=== PATIENT | female | born 1960 | race Caucasian/White ===

== ENCOUNTER 2019-08-18 11:59 | Emergency (ER) | payer MEDICARE, MEDICAID, SELFPAY ==
--- NOTE | ~2019-08-18 | XR_ITS ---
EXAMINATION: XR chest 2V DATE: 08/18/2019 13:51 INDICATION: Cough, shortness of breath, fever and wheezing TECHNIQUE: frontal and lateral views of the chest were obtained. COMPARISON: Chest radiograph dated 07/24/2016 FINDINGS: A few small calcified nodules in the right upper lung zone consistent with old granulomatous disease. No other airspace opacities, pleural effusion, pulmonary edema or pneumothorax. Small to moderate si zed retrocardiac hiatal hernia. Heart size is normal. Minimal anterior wedging of a couple mid thorac ic vertebral bodies with mild thoracic spondylosis. IMPRESSION: 1. No acute cardiopulmonary disease. 2. Small to moderate hiatal hernia. Reviewed, dictated and finalized at location A. ITY REP
[2019-08-18 12:39] VITALS: BP 141/81; PULSE 85; RESP 16; TEMP 37.1; O2SAT 98
--- NOTE | 2019-08-18 13:45 | ED.URI ---
HPI - URI/Sore Throat General Chief Complaint: Upper Respiratory Infection Stated Complaint: cough throat hurts hard to breathe Time Seen by Provider: 08/18/19 13:35 Source: patient, family and RN notes reviewed Mode of arrival: ambulatory Limitations: no limitations History of Present Illness HPI Narrative: 59 year old [facility] complaints of low grade fevers, post nasal drainage, nasal fullness and sinus pressure, headache,sore throat, with productive cough and some noted wheezing. Patient states that grandson had influenza recently refused nasal swab stating she thinks she has sinus infection. Patient has history o COPD and continues to use tobacco daily, has inhalers which she states that she has been using as ordered. Patient states shortness of breath and noted wheezing with her breathing.Lung sounds are decreased with some coarse scattered wheezing on auscultation, no tachypnea noted or accessory muscle use, SAO2 98% on room air. Patient states that she did not take a flu immunization this season and has been taking Tylenol for fever and discomfort. MD elicited complaint: fever, cough, sore throat, rhinorrhea, nasal congestion and sinus pain Pertinent past history: COPD and other (tobacco abuse) Onset (ago): day(s) (3) Consistency: progressively worsening Severity: severe Pain scale (0-10): 9 Description of mucous: clear Able to tolerate fluids by mouth: Yes Exacerbating factors: swallowing, exertion and deep breaths Relieving factors: nothing Associated symptoms: fever, headache, rhinorrhea, nasal congestion, sore throat, cough and shortness of breath Treatments prior to arrival: acetaminophen Related Data Home Medications Medication Instructions Recorded Confirmed albuterol sulfate [Ventolin HFA] 2 puff INHALATION QID PRN 08/18/19 08/18/19 dexlansoprazole [Dexilant] 60 mg PO DAILY 08/18/19 08/18/19 ipratropium-albuterol [Combivent 1 puff INHALATION QID 08/18/19 08/18/19 Respimat] sucralfate 1 g PO TID 08/18/19 08/18/19 Allergies Allergy/AdvReac Type Severity Reaction Status Date / Time azithromycin Allergy Unknown Rash Verified 08/18/19 13:02 Review of Systems Review of Systems: Narrative: CONSTITUTIONAL: Reports fever, chills, or sweats. EYES: Denies visual changes, redness, or discharge. ENT: reports rhinorrhea, congestion, sore throat, no otalgia. CARDIOVASCULAR: Denies chest pain, palpitations, or edema. RESPIRATORY:positive cough and dyspnea. GASTROINTESTINAL: Denies abdominal pain, nausea, vomiting, or diarrhea. GENITOURINARY: Denies dysuria or hematuria. SKIN: Denies rash or itching. MUSCULOSKELETAL: Denies back pain, joint pain, or myalgia. NEUROLOGIC:positive headache, numbness, or weakness. PSYCHIATRIC: Positive history anxiety or depression. All systems reviewed & are unremarkable except as noted in HPI and below [facility] Past Medical History Medical History (Updated 08/23/19 @ 15:22 by Valentina Elizabeth NP) Anorexia Anxiety and depression Bipolar 1 disorder COPD (chronic obstructive pulmonary disease) Diverticulitis Fibromyalgia Ganglion cyst of wrist GERD (gastroesophageal reflux disease) Hiatal hernia IBS (irritable bowel syndrome) Panic attacks Rheumatoid arthritis Schizophrenia Surgical History Surgical History (Updated 08/23/19 @ 15:19 by Valentina Elizabeth NP) History of removal of ovarian cyst Social History Social History (Updated 08/23/19 @ 15:16 by Valentina Elizabeth NP) Smoking packs per day: 0.5 Smoking cigarettes per day: 10.0 Years smoked: 40 Smoking pack-years: 20.00 Smoking status: Current every day smoker Tobacco type: cigarettes Living arrangements: with family Gender identity (if verbalized by the patient): Female Comments At time of signature, agree with nursing past medical, social history. There is no relevant family history pertinent to the presenting complaint Exam Narrative: Exam Narrative: GENERAL:ill-ap
== END 2019-08-18 15:10 | disposition home or self-care (01) ==
PROVIDERS: Emergency Provider Registered Nurse; PCP Internal Medicine
DX: J40 Bronchitis, not specified as acute or chronic (principal); J44.9 Chronic obstructive pulmonary disease, unspecified; K21.9 Gastro-esophageal reflux disease without esophagitis; M06.9 Rheumatoid arthritis, unspecified
CPT/HCPCS: 71046; 99213; G0463

== ENCOUNTER 2025-03-09 09:09 | Emergency (ER) | payer MEDICARE, MEDICAID, SELFPAY ==
--- OUTSIDE RECORDS SUMMARY | 2016-04-12 18:12 | XMS_ITS | Continuity of Care Document ---
Author Organization [facility] Address [address] [place] [address] Phone Care Team Providers Care Textile Colorist Dyer Name Role Phone Bianca ROUSSEAU, Sergio Unavailable Unavailable Advance Directives Directive Yes / No Effective Date File Name No Information Encounters Encounter Description Practice Location Reason(s) For Visit Diagnoses Date Provider Providers Copied on Encounter [facility], [address], [place], [place], [id number], [place] tel:[phone] [facility] No Information Bianca Hill. [address], [address], [place], [address], [place]. tel:[phone] Family History Family Member Type Diagnosis Age At Onset No Information Payers Payer name Insurance type Covered alliance party ID Authoriza tion(s) No Information Social History Type Description Quantity Date Captured Comments Sex Female Smoking Status No Information Chief Complaint And Reason For Visit No Information Reason For Referral Reason For Referral No Information History Of Present Illness Encounter Date Complaint History Of Prese nt Illness No Information Functional Status Date Functional Assessmen t No Information Instructions Date Instruction Additional Infor mation No Information Assessments Type Assessment Date No Information Patient Care Teams Name Effective Dates (start - stop) Status Members No Information
--- OUTSIDE RECORDS SUMMARY | 2021-04-26 08:30 | XMS_ITS | Continuity of Care Document ---
Author Organization [facility] Address [address] [place] [address] [address] [place] [address] Phone Care Team Providers Care Supervisor Paint Name Role Phone Librado Gant PT Unavailable Unavailable Procedures Procedure Date Therapeutic Activities PT Evaluation Low Complexity Therapeutic Exercise Advance Directives Directive Yes / No Effective Date File Name No Information Encounters Encounter Description Practice Location Reason(s) For Visit Diagnoses Date Provider Providers Copied on Encounter [facility], [address] [place] [address], [id number], tel:[phone] [place] No Information Stalin Pavon. . Referring Provider: Cy Rico, [address] [place] [address], [address]. tel:[phone] Family History Family Member Type Diagnosis Age At Onset No Information Payers Payer name Insurance type Covered constitution party ID Authoriza tiemmanuel(s) [employer] Medicare Replacement 16 [id number] Medicaid OON Write Off CI 00 Social History Type Description Quantity Date Captured Comments Alcohol Use Details Unknown Caffeine Use Details Unknown Tobacco Use Status No Information Smoking Status No Information Non-Smoking Tobacco Use Details : No Details Available : No Details Available Sex Female Vital Signs Date / Time: Height Weight BMI Pulse Rate Blood Pressure Temperature Respiratory Rate Body Surface Area Head Circumference Head Circ. Percentile Wt./Socrates. Percentile BMI percentile Pulse Ox Inhaled Ox 11:15 PM 64.00 in 65.770 kg (145.00 lbs) 24.8 9 kg/m eter (2) 1.72 meter(2) Chief Complaint And Reason For Visit No Information Reason For Referral Reason For Referral No Information Plan Of Treatment Date Type Action Status Goal Tobacco cessation counseling completed Goal Tobacco Cessation Counseling completed History Of Present Illness Encounter Date Complaint History Of Prese nt Illness No Information Functional Status Date Functional Assessmen t No Information Instructions Date Instruction Additional Infor mation No Information Assessments Type Assessment Date No Information Patient Care Teams Name Effective Dates (start - stop) Status Members No Information
[2025-03-09 09:20] VITALS: BP 143/79; PULSE 81; RESP 20; TEMP 36.5; O2SAT 98
--- OUTSIDE RECORDS SUMMARY | 2025-03-09 09:20 | XMS_ITS | Encounter Summary ---
Author Organization [facility] Address [address] [facility] [place] [address] Phone Care Team Providers Care Office Support Name Role Phone Cindy Morgan APRN, RESPIRATORY THERAPIST Unavailable Juan M Hickey MD Unavailable [phone] Iker Cedillo DO Unavailable [phone] Barbara Lamar MD Unavailable Unavail able Dawson Rudd MD Primary Care Provider [phone] Nolvia Lebron TEMPORARY OFFICE ASSISTANT, RESPIRATORY THERAPIST Primary Care Provid er Prema Marcelo TEMPORARY OFFICE ASSISTANT, RESPIRATORY THERAPIST Unavailable Zina Lugo TEMPORARY OFFICE ASSISTANT, RESPIRATORY THERAPIST Unavailable + [phone] Reason for Visit * Reason Comments Medication Refill Encounter Details Date Type Department Care Team (Late st Contact Info) Description 03/24/2021 Refill [facility] - [place] #2 [place] [id number] Dawson Rudd MD [address] [address] Medication Refill Social History Tobacco Use Types Packs/Day Years Used Date Smoking Tobacco: Every Day Cigarettes 0.5 45 Smokeless Tobacco: Never Comments:2-3 day Alcohol Use Standard Drinks/Week Comments No 0 (1 standard drink = 0.6 oz pure alcohol) use to be heavy drinker-quit drinking 21 years PHQ-2 Answer Date Recorded Total Score - Questions 1-9 0 12/02 Sexually Active Control Partners Comments Not Currently Comments No Sex and Gender Information Value Date Recorded Sex Assigned at Not on file Legal Sex Female 10:18 PM CDT Gender Identity Not on file Sexual Orientation Not on file Occupation Industry Job Start Date Job End Date disabled Not on file Not on file Not on file COVID-19 Exposure Response Date Recorded In the last month, have you been in contact with someone who was confirmed or suspected to have Coronavirus / COVID-19? No / Unsure 02/23/2021 6:16 AM CDT documented as of this encounter Miscellaneous Notes * Telephone Encounter - Dawson Rudd MD - 03/25/2021 11:10 AM CDT Prescription pending signature * Telephone Encounter - Chiqui Urrutia RN - 03/25/2021 10:57 AM CDT [place] PDMP 03/01/21 for 15 days Medication failed the protocol, provider to review and approve the medication order if appropriate. Requested Prescriptions Pending Prescriptions Disp Refills diazePAM (VALIUM) 5 MG Tablet [Pharmacy Med Name: diazePAM 5 MG Oral Tablet] 15 Tablet 0 Sig: TAKE 1 TABLET BY MOUTH EVERY 8 HOURS NEEDED FOR MUSCLE SPASM There is no refill protocol information for this order Refused Prescriptions Disp Refills buPROPion (WELLBUTRIN) 150 MG XL tablet [Pharmacy Med Name: buPROPion HCl ER (XL) 150 MG Oral Tablet Extended Release 24 Hour] 90 Tablet 0 Sig: TAKE 1 TABLET BY MOUTH ONCE DAILY IN THE MORNING Bupropion (6 Month Refill Only) Protocol Failed - 03/25/2021 10:57 AM Failed - Active on medication list Failed - Has an encounter in the past 6 months with a depression or anxiety visit diagnosis Passed - Visit with relevant provider in past 6 months or upcoming 90 days Recent Visits Date Type Provider Dept 01/28/21 Office Visit Tia Mason, PAC [facility] 12/29/20 Office Visit DeandraMariella bardalesTayla, PAC [facility] [place] 12/22/20 Office Visit Dawson Rudd MD [facility] [place] 12/11/20 Office Visit NiniabbieTia bardales, PAC [facility] 11/13/20 Office Visit Nolvia Lebron APN, CNP [facility] 10/29/20 Office Visit DeandraMariella bardalesTayla, PAC [facility] [place] 10/16/20 Office Visit Nolvia Lebron APN, CNP [facility] [place] 09/29/20 Office Visit Nolvia Lebron APN, CNP [facility] 09/25/20 Office Visit Nolvia Lebron APN, CNP [facility] [place] Showing recent visits within past 182 days and meeting all other requirements Future Appointments No visits were found meeting these conditions. Showing future appointments within next 90 days and meeting all other requirements Passed - Patient has established therapy with Bupropion for at least 6 months * Telephone Encounter - Chiqui Urrutia RN - 03/25/2021 10:47 AM CDT Name from pharmacy: buPROPion HCl ER (XL) 150 MG Oral Tablet Extended Release 24 Hour Will file in chart as: buPROPion (WELLBUTRIN) 150 MG XL tablet The original prescription was discontinued on 09/25/2020 by Nolvia Lebron APN, CNP for the following reason: Therapy completed. documented in this encounter Plan of Treatment Upcoming Encounters Date Type Department Care Team ([facility] Contact Info) Description 03/10/2025 4:00 PM CDT [facility]ointment [facility] [address] [place] [address] Nolvia Lebron APRN, CNP [address] [address] Discharge Disposition: Discharged to home or Selfcare 03/10/2025 4:45 PM CDT Appointment [facility] Mammography [address] [place] [address] Nolvia Lebron APRN, RESPIRATORY THERAPIST #[address] [address] Discharge Disposition: Discharged to home or Selfcare documented as of this encounter Visit Diagnoses Diagnosis Spinal stenosis of lumbar region, unspecified whether neurogenic claudication present Chronic right-sided low back pain with right-sided sciatica documented in this encounter Additional Health Concerns Infection Onset Date Last Indicated Resolved Time COVID - 19 07/26/2021 07/26/2021 07/27/2021 9:40 AM YOKER COVID - 19 Confirmed 07/26/2021 07/26/2021 022 12:16 AM YOKER Assessment Noted Time PHQ-9 Depression Total Score: 0 12/23/19 21 1:05 PM CDT documented as of this encounter Care Teams Office Support Relationship Specialty Start Date End Date Dawson Rudd MD #[address] [address] PCP - General Family Medicine 05/26/20 08/02/21 Nolvia Lebron APRN, RESPIRATORY THERAPIST #[address] [address] PCP - General Advanced Practice Nurse 08/03/21 Cindy Morgan APRN, RESPIRATORY THERAPIST Nurse Practitioner Advanced Practice Nurse 04/18/16 Juan M Hickey MD General Surgery 10/25/16 06/09/24 Iker Cedillo DO Gastroenterology 11/07/16 06/09/24 Barbara Lamar MD Obstetrics & Gynecology 05/15/20 Prema Marcelo APRN, RESPIRATORY THERAPIST #2 [place] [address] Nurse Practitioner Advanced Practice Nurse 08/10/22 Zina Lugo APRN, RESPIRATORY THERAPIST #2 [facility] [address] [place] [address] Nurse Practitioner Cardiology 12/27/23 01/09/25 documented as of this encounter
--- OUTSIDE RECORDS SUMMARY | 2025-03-09 09:21 | XMS_ITS | Encounter Summary ---
Author Organization [facility] Address [address] [facility] [place] [address] Phone Care Team Providers Care Consulting Psychologist Name Role Phone Cindy Morgan SAP BW ARCHITECT, TEST MAN Unavailable Juan M Hickey MD Unavailable [phone] Iker Cedillo DO Unavailable [phone] Barbara Lamar MD Unavailable Unavail able Dawson Rudd MD Primary Care Provider [phone] Nolvia Lebron SAP BW ARCHITECT, TEST MAN Primary Care Provid er Prema Marcelo SAP BW ARCHITECT, TEST MAN Unavailable Zina Lugo SAP BW ARCHITECT, TEST MAN Unavailable + [phone] Reason for Visit * Reason Comments Medication Refill Encounter Details Date Type Department Care Team (Late st Contact Info) Description 12/07/2020 Refill [facility] #2 [place] [address] Lee Javier MD #1 [place] [address] Medication Refill Social History Tobacco Use Types Packs/Day Years Used Date Smoking Tobacco: Former Cigarettes 0.5 45 Smokeless Tobacco: Never Alcohol Use Standard Drinks/Week Comments No 0 (1 standard drink = 0.6 oz pure alcohol) use to be heavy drinker-quit drinking 20 years PHQ-2 Answer Date Recorded Total Score - Questions 1-9 0 05/03 Comments No Sex and Gender Information Value [...] have Coronavirus / COVID-19? No / Unsure 11/13/2020 1:08 PM CDT documented as of this encounter Miscellaneous Notes * Telephone Encounter - Dawson Rudd MD - 12/08/2020 2:14 PM CDT Prescription pending signature * Telephone Encounter - Chiqui Urrutia RN - 12/08/2020 12:10 PM CDT [place] 11/27/20 - 5 days supply Medication failed the protocol, provider to review and approve the medication order if appropriate. Requested Prescriptions Pending Prescriptions Disp Refills diazePAM (VALIUM) 5 MG Tablet [Pharmacy Med Name: diazePAM 5 MG Oral Tablet] 15 Tablet 0 Sig: Take 1 Tablet by mouth every 8 hours as needed for Muscle spasms. [facility] Not Delegated - Psychiatry: Anxiolytics/Hypnotics Failed - 12/08/2020 12:10 PM Failed - This refill cannot be delegated Passed - Valid encounter within last 6 months Past Office Visits Recent Outpatient Visits 3 weeks ago Fibromyalgia [facility] - Nolvia Carter APN, MELIDA 1 month ago Chronic right-sided low back pain with right-sided sciatica [facility] - [facility] Medicine - Tia Art PAC 1 month ago Fibromyalgia [facility] - [facility] Medicine - Nolvia Carter APN, MELIDA 2 months ago Fibromyalgia [facility] - [facility] Medicine - [place] Ferguson APN, CNP 2 months ago Fibromyalgia [facility] [place] AP[place] TEST MAN Upcoming Appointments Future Appointments In 6 days Abby Corado December, PAC [facility] - Gastroenterology - [place], [facility] - Recent and Past Visits Recent Visits Date Type Provider Dept 11/13/20 Office Visit Nolvia Lebron APN, MELIDA [facility] 10/29/20 Office Visit Tia Mason, DAYAN [facility] [place] 10/16/20 Office Visit Nolvia Lebron APN, MELIDA [facility] [place] 09/29/20 Office Visit Nolvia Lebron APN, MELIDA [facility] 09/25/20 Office Visit Nolvia Lebron APN, CNP [facility] 05/26/20 Office Visit [facility] 05/15/20 Office Visit Dawson Rudd MD [facility] Showing recent visits within past 460 days with a meds authorizing provider and meeting all other requirements Future Appointments No visits were found meeting these conditions. Showing future appointments within next 90 days with a meds authorizing provider and meeting all other requirements documented in this encounter Plan of Treatment Upcoming Encounters Date Type Department Care Team (Late st Contact Info) Description 03/10/2025 4:00 PM CDT Appointment [facility] 1 [place] [address] Nolvia Lebron APRN, CNP [address] [address] Discharge Disposition: Discharged to home or Selfcare 03/10/2025 4:45 PM CDT Appointment [facility] [address] [place] [address] Nolvia Lebron APRN, TEST MAN #[address] [address] Discharge Disposition: Discharged to home or Selfcare documented as of this encounter Visit Diagnoses Not on filedocumented in this encounter Additional Health Concerns Infection Onset Date Last Indicated Resolved Time COVID - 19 07/26/2021 07/26/2021 07/27/2021 9:40 AM [employer] REP COVID - 19 Confirmed 07/26/2021 07/26/2021 022 12:16 AM [employer] REP Assessment Noted Time PHQ-9 Depression Total Score: 0 05/15/20 20 10:08 AM [employer] REP documented as of this encounter Care Teams Consulting Psychologist Relationship Specialty Start Date End Date Dawson Rudd MD #[address] [address] PCP - General Family Medicine 05/26/20 08/02/21 Nolvia Lebron APRN, TEST MAN #[address] [address] PCP - General Advanced Practice Nurse 08/03/21 Cindy Morgan APRN, TEST MAN Nurse Practitioner Advanced Practice Nurse 04/18/16 Juan M Hickey MD General Surgery 10/25/16 06/09/24 Iker Cedillo DO Gastroenterology 11/07/16 06/09/24 Barbara Lamar MD Obstetrics & Gynecology 05/15/20 Prema Marcelo APRN, TEST MAN #2 [place] [address] Nurse Practitioner Advanced Practice Nurse 08/10/22 Zina Lugo APRN, TEST MAN #2 [facility] [address] [place] [address] Nurse Practitioner Cardiology 12/27/23 01/09/25 documented as of this encounter
--- OUTSIDE RECORDS SUMMARY | 2025-03-09 09:21 | XMS_ITS | Encounter Summary ---
Author Organization [facility] Address [address] [facility] [place] [address] Phone Care Team Providers Care Branch Examiner Name Role Phone Cindy Morgan APRN, BULLET LUBRICATING MACHINE OPERATOR Unavailable Juan M Hickey MD Unavailable [phone] Iker Cedillo DO Unavailable [phone] Barbara Lamar MD Unavailable Unavail able Dawson Rudd MD Primary Care Provider [phone] Nolvia Lebron NETTING WEAVER, BULLET LUBRICATING MACHINE OPERATOR Primary Care Provid er Prema Marcelo NETTING WEAVER, BULLET LUBRICATING MACHINE OPERATOR Unavailable Zina Lugo NETTING WEAVER, BULLET LUBRICATING MACHINE OPERATOR Unavailable + [phone] Reason for Visit * Reason Comments Medication Refill Encounter Details Date Type Department Care Team (Late st Contact Info) Description 02/14/2021 Refill [facility] - [place] #2 [place] [phone] Dawson Rudd MD #[address] [address] Medication Refill Social History Tobacco Use Types [...] have Coronavirus / COVID-19? No / Unsure 02/10/2021 1:43 PM CDT documented as of this encounter Miscellaneous Notes * Telephone Encounter - Chiqui Urrutia RN - 02/15/2021 1:47 PM CDT The original prescription was discontinued on 09/25/2020 by Nolvia Lebron APN, CNP for the following reason: Therapy completed documented in this encounter Plan of Treatment Upcoming Encounters Date Type Department Care Team (Late st Contact Info) Description 03/10/2025 4:00 PM CDT [facility] 1 [place] [phone] Nolvia Lebron APRN, BULLET LUBRICATING MACHINE OPERATOR #[address] [phone] Discharge Disposition: Discharged to home or Selfcare 03/10/2025 4:45 PM CDT [facility] [address] [place] [phone] Nolvia Lebron APRN, MELIDA #[address] [address] Discharge Disposition: Discharged to home or Selfcare documented as of this encounter Visit Diagnoses Not on filedocumented in this encounter Additional Health Concerns Infection Onset Date Last Indicated Resolved Time COVID - 19 07/26/2021 07/26/2021 07/27/2021 9:40 AM EMERGENCY VEHICLE OPERATOR COVID - 19 Confirmed 07/26/2021 07/26/2021 022 12:16 AM EMERGENCY VEHICLE OPERATOR Assessment Noted Time PHQ-9 Depression Total Score: 0 12/23/19 21 1:05 PM CDT documented as of this encounter Care Teams Branch Examiner Relationship Specialty Start Date End Date Dawson Rudd MD #[address] [address] PCP - General Family Medicine 05/26/20 08/02/21 Nolvia Lebron APRN, BULLET LUBRICATING MACHINE OPERATOR #[address] [address] PCP - General Advanced Practice Nurse 08/03/21 Cindy Morgan APRN, BULLET LUBRICATING MACHINE OPERATOR Nurse Practitioner Advanced Practice Nurse 04/18/16 Juan M Hickey MD General Surgery 10/25/16 06/09/24 Iker Cedillo DO Gastroenterology 11/07/16 06/09/24 Barbara Lamar MD Obstetrics & Gynecology 05/15/20 Prema Marcelo APRN, BULLET LUBRICATING MACHINE OPERATOR #2 [place] [address] Nurse Practitioner Advanced Practice Nurse 08/10/22 Zina Lugo APRN, BULLET LUBRICATING MACHINE OPERATOR #[address] [place] [address] Nurse Practitioner Cardiology 12/27/23 01/09/25 documented as of this encounter
--- OUTSIDE RECORDS SUMMARY | 2025-03-09 09:21 | XMS_ITS | Encounter Summary ---
Author Organization [facility] Address [address] [facility] [place] [address] Phone Care Team Providers Care Screen Room Operator Name Role Phone Cindy Morgan APRN, ENAMEL SPRAYER Unavailable Juan M Hickey MD Unavailable [phone] Iker Cedillo DO Unavailable [phone] Barbara Lamar MD Unavailable Unavail able Dawson Rudd MD Primary Care Provider Nolvia Lebron EEG TECHNICIAN, ENAMEL SPRAYER Primary Care Provid er Prema Marcelo EEG TECHNICIAN, ENAMEL SPRAYER Unavailable Zina Lugo EEG TECHNICIAN, ENAMEL SPRAYER Unavailable + [phone] Encounter Details Date Type Department Care Team (Late st Contact Info) Description 07/08/2021 Telephone [facility] [address] [place], [place] [id number] Dawson Rudd MD #[address] [address] Social History Tobacco Use Types Packs/Day Years Used Date Smoking Tobacco: Every Day Cigarettes 0.5 45 Smokeless Tobacco: Never Comments:2-3 day Alcohol Use Standard Drinks/Week Comments No 0 (1 standard drink = 0.6 oz pure alcohol) use to be heavy drinker-quit drinking 20 years PHQ-2 Answer Date Recorded Total Score - Questions 1-9 0 08/2020 Sexually Active Control Partners Comments Not Currently [...] or suspected to have Coronavirus / COVID-19? Yes 07/08/2021 10:47 AM PAPER GLUING OPERATOR documented as of this encounter Plan of Treatment Upcoming Encounters Date Type Department Care Team (Late st Contact Info) Description 03/10/2025 4:00 PM CDT [facility] [address] [place] [address] Nolvia Lebron APRN, ENAMEL SPRAYER #[address] [address] Discharge Disposition: Discharged to home or Selfcare 03/10/2025 4:45 PM CDT [facility] [address] [place] [address] Nolvia Lebron APRN, ENAMEL SPRAYER #[address] [address] Discharge Disposition: Discharged to home or Selfcare documented as of this encounter Visit Diagnoses Not on filedocumented in this encounter Additional Health Concerns Infection Onset Date Last Indicated Resolved Time COVID - 19 07/26/2021 07/26/2021 07/27/2021 9:40 AM PAPER GLUING OPERATOR COVID - 19 Confirmed 07/26/2021 07/26/2021 022 12:16 AM PAPER GLUING OPERATOR Assessment Noted Time PHQ-9 Depression Total Score: 0 06/04/20 8:55 AM PAPER GLUING OPERATOR documented as of this encounter Care Teams Screen Room Operator Relationship Specialty Start Date End Date Dawson Rudd MD #2 [facility] [address] [place] [address] PCP - General Family Medicine 05/26/20 08/02/21 Nolvia Lebron APRN, ENAMEL SPRAYER #2 [facility] [address] [place] [address] PCP - General Advanced Practice Nurse 08/03/21 Cindy Morgan APRN, ENAMEL SPRAYER Nurse Practitioner Advanced Practice Nurse 04/18/16 Juan M Hickey MD General Surgery 10/25/16 06/09/24 Iker Cedillo DO Gastroenterology 11/07/16 06/09/24 Barbara Lamar MD Obstetrics & Gynecology 05/15/20 Prema Marcelo APRN, ENAMEL SPRAYER #[address] [place] [address] Nurse Practitioner Advanced Practice Nurse 08/10/22 Zina Lugo APRN, ENAMEL SPRAYER #2 [facility] [address] [place] [address] Nurse Practitioner Cardiology 12/27/23 01/09/25 documented as of this encounter
--- OUTSIDE RECORDS SUMMARY | 2025-03-09 09:21 | XMS_ITS | Clinical Summary ---
Author Organization [facility] Address [address] [place] [address] Care Team Providers Care Fisher Troll Line Name Role Phone Dawson Rudd MD Primary Care Provider [phone] Source Comments [facility],non-owned Affiliates and Associated Physician Practices is amultiple site organization consisting of ambulatory clinics and hospital sitesin [place], [place], [place] and [place]. This disclosure is being madepursuant to the Care Everywhere program and may not contain all information available regarding this patient. Last updated 18.[facility] Allergies Active Allergy Reactions Criticality Noted Date Comments Azithromycin Nausea Low 05/09/2016 Diclofenac Epolamine Other 12/25/2015 dizziness Azithromycin Urticaria Medium 10/27/2017 Medications * Be aware that medications may not be up to date on this document. Alwaysverify current medications with the patient. cyanocobalamin (VITAMIN B-12) 100 MCG tablet Take 100 mcg by mouth DAILY. 05/09/2016 Active calcium citrate-vitamin D (CITRACAL PLUS D) 315-200 MG-UNIT tablet Take 1 tablet by mouth DAILY. 05/09/2016 Active Ipratropium-Albu terol (COMBIVENT IN) Active Budesonide-Formo terol Fumarate (SYMBICORT IN) Activ e Albuterol Sulfate (PROAIR HFA IN) Active Dexlansoprazole (DEXILANT PO) Active BuPROPion HCl (WELLBUTRIN PO) Acti ve Active Problems Problem Noted Date Diagnosed Date Personal history of other di seases of the musculoskeletal system and connective tissue 05/09/2016 Other migraine, not intractable, without status migrainosus 05/09/2016 Pain in joint 05/09/2016 Myalgia 05/09/2016 Other malaise 05/09/2016 Other fatigue 05/09/2016 Family History Medical History Relation Name Comments Suicide Father Status: d None Known Mother Status: Alive Relation Name Status Comments Father Mother Social History Tobacco Use Types Packs/Day Years Used Date Smoking Tobacco: Every Day Cigarettes Smokeless Tobacco: Never Alcohol Use Standard Drinks/Week Comments No 0 (1 standard drink = 0.6 oz pur e alcohol) Comments Unknown Sex and Gender Information Value Date Recorded Sex Assigned at Not on file Legal Sex Female 1:45 PM CDT Gender Identity Not on file Sexual Orientation Not on file Last Filed Vital Signs Vital Sign Reading Time Taken Comments Blood Pressure 100/64 04/08/2018 11:05 AM CDT Pulse 81 04/18/2018 5:07 PM CDT Temperature 37.2 C (98.9 F) 04/08/2018 11:05 AM CDT Respiratory Rate 18 05/09/2016 1:03 PM STUDENT SERVICES COUNSELOR Oxygen Saturation 96% 04/18/2018 5:07 PM CDT Inhaled Oxygen Concentration - - Weight 47.6 kg (105 lb) 04/08/2018 11:05 AM CDT Height 162.6 cm (5' 4) 04/08/2018 11:05 AM CDT Body Mass Index 18.02 04/08/2018 11:05 AM CDT Plan of Treatment Health Maintenance Due Date Last Done Comments BONE DENSITY TESTING 1959 COLOGUARD (AGES 45-75) - COL ON CA SCREENING 1959 COLON MONITORING 1959 COLONOSCOPY - COLON CA SCREENING 1959 CT COLONOGRAPHY - COLON CA SCREENING 1959 Colorectal Cancer Screening 1959 FIT - COLON CA SCREENING 1959 FLEX SIG - COLON CA SCREENING 1959 LIPID TESTING 1959 MAMMOGRAM 1959 MEDICARE AWV 12 MONTHS 1959 HEPATITIS C SCREENING 02/06/1977 DTAP/TDAP/TD VACCINES (1 - Tdap) 1978 PNEUMOCOCCAL VACCINE 50+ (1 of 2 - PCV) 1978 ZOSTER VACCINE (1 of 2) 2009 Respiratory Syncytial Virus (RSV) Vaccine Pt: or over 60 yrs (1 - Risk 60-74 years 1-dose series) 2019 DEPRESSION SCREENING 07/03/2024 COVID-19 VACCINE (1 - 2023-2 5 season) 2025 INFLUENZA VACCINE (#1) 2025 HEPATITIS B VACCINE Aged Out No longe r eligible based on patient's age to complete this topic HIB VACCINE Aged Out No longer eligi ble based on patient's age to complete this topic HPV VACCINE Aged Out No longer eligi ble based on patient's age to complete this topic MENINGOCOCCAL (Group B) VACC INE SHARED DECISION-MAKING Aged Out No longer eligibl e based on patient's age to complete this topic MENINGOCOCCAL GROUPS A/C/Y/W VACCINE Aged Out No longer eligible b ased on patient's age to complete this topic Insurance MEDICAID - [employer] MEDICAID - [place] MED[place]ARE Care Teams Fisher Troll Line Relationship Specialty Start Date End Date Dawosn Rudd MD PCP - General Family Medicine 08/19/20
--- OUTSIDE RECORDS SUMMARY | 2025-03-09 09:21 | XMS_ITS | Encounter Summary ---
Author Organization [facility] Address [address] [facility] [place] [address] Phone Care Team Providers Care Manager Produce Name Role Phone Cindy Morgan APRN, SALES PROMOTION OFFICER Unavailable Juan M Hickey MD Unavailable [phone] Iker Ceidllo DO Unavailable [phone] Barbara Lamar MD Unavailable Unavail able Dawson Rudd MD Primary Care Provider Nolvia Lebron APRN, SALES PROMOTION OFFICER Primary Care Provid er Prema Marcelo APRN, SALES PROMOTION OFFICER Unavailable Zina Lugo MATERIAL CUTTER, SALES PROMOTION OFFICER Unavailable + [phone] Reason for Visit * Reason Comments Medication Refill Encounter Details Date Type Department Care Team (Late st Contact Info) Description 02/03/2021 [facility]ill [facility] [place] #2 [place] [address] Nolvia Lebron APRN, SALES PROMOTION OFFICER #[address] [address] Medication Refill Social History Tobacco Use Types Packs/Day Years Used Date Smoking Tobacco: Every Day Cigarettes 0.5 45 Smokeless Tobacco: Never Alcohol [...] have Coronavirus / COVID-19? No / Unsure 01/28/2021 2:16 PM CDT documented as of this encounter Miscellaneous Notes * Telephone Encounter - Dawson Rudd MD - 02/03/2021 3:09 PM CDT Prescription approved. Please call in * Telephone Encounter - Chiqui Urrutia RN - 02/03/2021 3:05 PM CDT PRN medication requires review from provider Per nursing clinical judgement, provider to review and approve the medication(s) order(s) if appropriate. Requested Prescriptions Pending Prescriptions Disp Refills albuterol 108 (90 Base) MCG/ACT Aerosol Solution [Pharmacy Med Name: Albuterol Sulfate HFA 108 (90 Base) MCG/ACT Inhalation Aerosol Solution] 9 g 1 Sig: INHALE 2 PUFFS BY MOUTH EVERY 4 HOURS NEEDED FOR WHEEZING OR COUGH Short Acting Inhaled Beta-Agonists Protocol Passed - 02/03/2021 2:07 PM Passed - Visit with relevant provider in past 12 months or upcoming 90 days Recent Visits Date Type Provider Dept 01/28/21 Office Visit Tia Mason, DAYAN [facility] 12/29/20 Office Visit Tia Mason, DAYAN [facility] 12/22/20 Office Visit Dawson Rudd MD [facility] 12/11/20 Office Visit Tia Mason, PAC [facility] [place] 11/13/20 Office Visit Nolvia Lebron APN, MELIDA [facility] [place] 10/29/20 Office Visit Tia Mason, PAC [facility] [place] 10/16/20 Office Visit Nolvia Lebron APN, MELIDA [facility] [place] 09/29/20 Office Visit Nolvia Lebron APN, MELIDA [facility] 09/25/20 Office Visit Nolvia Lebron APN, MELIDA [facility] 05/26/20 Office Visit Dawson Rudd MD [facility] Showing recent visits within past 365 days and meeting all other requirements Future Appointments No visits were found meeting these conditions. Showing future appointments within next 90 days and meeting all other requirements documented in this encounter Plan of Treatment Upcoming Encounters Date Type Department Care Team (Late st Contact Info) Description 03/10/2025 4:00 PM CDT [facility]ointment [facility] [address] [place] [address] Nolvia Lebron APRN, SALES PROMOTION OFFICER #[address] [address] Discharge Disposition: Discharged to home or Selfcare 03/10/2025 4:45 PM CDT [facility]ointment [facility] [address] [place] [address] Nolvia Lebron APRN, SALES PROMOTION OFFICER #[address] [address] Discharge Disposition: Discharged to home or Selfcare documented as of this encounter Visit Diagnoses Diagnosis Chronic obstructive pulmonary disease, unspecified COPD type (HCC) documented in this encounter Additional Health Concerns Infection Onset Date Last Indicated Resolved Time COVID - 19 07/26/2021 07/26/2021 07/27/2021 9:40 AM NATIONAL VAN OWNER OPERATOR COVID - 19 Confirmed 07/26/2021 07/26/2021 022 12:16 AM NATIONAL VAN OWNER OPERATOR Assessment Noted Time PHQ-9 Depression Total Score: 0 12/23/19 21 1:05 PM CDT documented as of this encounter Care Teams Manager Produce Relationship Specialty Start Date End Date Dawson Rudd MD #2 [facility] [address] [place] [address] PCP - General Family Medicine 05/26/20 08/02/21 Nolvia Lebron APRN, SALES PROMOTION OFFICER #2 [facility] [address] [place] [address] PCP - General Advanced Practice Nurse 08/03/21 Cindy Morgan APRN, SALES PROMOTION OFFICER Nurse Practitioner Advanced Practice Nurse 04/18/16 Juan M Hickey MD General Surgery 10/25/16 06/09/24 Iker Cedillo DO Gastroenterology 11/07/16 06/09/24 Barbara Lamar MD Obstetrics & Gynecology 05/15/20 Prema Marcelo APRN, SALES PROMOTION OFFICER #2 [place] [address] Nurse Practitioner Advanced Practice Nurse 08/10/22 Zina Lugo APRN, SALES PROMOTION OFFICER #2 [facility] [address] [place] [address] Nurse Practitioner Cardiology 12/27/23 01/09/25 documented as of this encounter
--- OUTSIDE RECORDS SUMMARY | 2025-03-09 09:21 | XMS_ITS | Encounter Summary ---
Author Organization [facility] Address [address] [facility] [place] [address] Phone Care Team Providers Care Drafter Civil (Cad) Name Role Phone Cindy Morgan APRN, DRYWALL HANGER FRAMER Unavailable Juan M Hickey MD Unavailable [phone] Iker Cedillo DO Unavailable [phone] Barbara Lamar MD Unavailable Unavail able Dawson Rudd MD Primary Care Provider [phone] Nolvia Lebron MOTORCYCLE BUILDER, DRYWALL HANGER FRAMER Primary Care Provid er Prema Marcelo MOTORCYCLE BUILDER, DRYWALL HANGER FRAMER Unavailable Zina Lugo MOTORCYCLE BUILDER, DRYWALL HANGER FRAMER Unavailable + [phone] Reason for Visit * Reason Comments Medication Refill Encounter Details Date Type Department Care Team (Late st Contact Info) Description 03/24/2021 Refill [facility] - [place] #2 [place] [id number] Tia Mason, DAYAN #2 [place] [address] Medication Refill Social History Tobacco Use Types [...] Encounter - Dawson Rudd MD - 03/25/2021 11:09 AM CDT Prescription approved. Please call in * Telephone Encounter - Chiqui Urrutia RN - 03/25/2021 10:58 AM CDT Medication failed the protocol, provider to review and approve the medication order if appropriate. Requested Prescriptions Pending Prescriptions Disp Refills ondansetron (ZOFRAN) 8 MG Tablet [Pharmacy Med Name: Ondansetron HCl 8 MG Oral Tablet] 15 Tablet 0 Sig: TAKE 1 TABLET BY MOUTH EVERY 8 HOURS NEEDED FOR NAUSEA Not Delegated - 5-HT3 Antagonists Protocol Failed - 03/24/2021 4:29 PM Failed - This refill cannot be delegated Passed - Visit with relevant provider in past 12 months or upcoming 90 days Recent Visits Date Type Provider Dept 01/28/21 Office [facility] 12/29/20 Office [facility] Tia [facility], [facility] 12/22/20 Office Visit Dawson Rudd MD [facility] 12/11/20 Office Visit Tia Mason, PAC [facility] 11/13/20 Office Visit Nolvia Lebron APN, MELIDA [facility] 10/29/20 Office Visit Tia Mason, PAC [facility] [place] 10/16/20 Office Visit Nolvia Lebron APN, MELIDA [facility] [place] 09/29/20 Office Visit Nolvia Lebron APN, MELIDA [facility] [place] 09/25/20 Office Visit Nolvia Lebron APN, DRYWALL HANGER FRAMER [facility] [place] 05/26/20 Office Visit Dawson Rudd MD [facility] Showing recent visits within past 365 days and meeting all other requirements Future Appointments No visits were found meeting these conditions. Showing future appointments within next 90 days and meeting all other requirements documented in this encounter Plan of Treatment Upcoming Encounters Date Type Department Care Team (Late st Contact Info) Description 03/10/2025 4:00 PM CDT [facility]ment [facility] [address] [place] [address] Nolvia Lebron APRN, DRYWALL HANGER FRAMER #[address] [address] Discharge Disposition: Discharged to home or Selfcare 03/10/2025 4:45 PM CDT Appointment [facility] [address] [place] [address] Nolvia Lebron APRN, DRYWALL HANGER FRAMER #[address] [address] Discharge Disposition: Discharged to home or Selfcare documented as of this encounter Visit Diagnoses Not on filedocumented in this encounter Additional Health Concerns Infection Onset Date Last Indicated Resolved Time COVID - 19 07/26/2021 07/26/2021 07/27/2021 9:40 AM WASTEWATER OPERATOR COVID - 19 Confirmed 07/26/2021 07/26/2021 022 12:16 AM WASTEWATER OPERATOR Assessment Noted Time PHQ-9 Depression Total Score: 0 12/23/19 21 1:05 PM CDT documented as of this encounter Care Teams Drafter Civil (Cad) Relationship Specialty Start Date End Date Dawson Rudd MD #2 [facility] [address] [place] [address] PCP - General Family Medicine 05/26/20 08/02/21 Nolvia Lebron MOTORCYCLE BUILDER, DRYWALL HANGER FRAMER #2 [facility] [address] [place] [phone] PCP - General Advanced Practice Nurse 08/03/21 Cindy Morgan APRN, DRYWALL HANGER FRAMER Nurse Practitioner Advanced Practice Nurse 04/18/16 Juan M Hickey MD General Surgery 10/25/16 06/09/24 Iker Cedillo DO Gastroenterology 11/07/16 06/09/24 Barbara Lamar MD Obstetrics & Gynecology 05/15/20 Prema Marcelo APRN, DRYWALL HANGER FRAMER #2 [place] [address] Nurse Practitioner Advanced Practice Nurse 08/10/22 Zina Lugo APRN, DRYWALL HANGER FRAMER #2 [facility] [address] [place] [address] Nurse Practitioner Cardiology 12/27/23 01/09/25 documented as of this encounter
--- OUTSIDE RECORDS SUMMARY | 2025-03-09 09:21 | XMS_ITS | Encounter Summary ---
Author Organization [facility] Address [address] [facility] [place] [address] Phone Care Team Providers Care Terra Cotta Roofer Name Role Phone Cindy Morgan APRN, SHELL MAKER LOCKSTITCH Unavailable Juan M Hickey MD Unavailable [phone] Iker Cedillo DO Unavailable [phone] Barbara Lamar MD Unavailable Unavail able Nolvia Lebron APRN, SHELL MAKER LOCKSTITCH Primary Care Provid er Prema Marcelo APRN, SHELL MAKER LOCKSTITCH Unavailable Zina Lugo APRN, SHELL MAKER LOCKSTITCH Unavailable [phone] Reason for Visit * Reason Comments Medication Refill Encounter Details Date Type Department Care Team (Late st Contact Info) Description 12/16/2022 Refill [facility] - [place] #2 [place] [address] Nolvia Lebron APRN, SHELL MAKER LOCKSTITCH #[address] [address] Medication Refill Social History Tobacco Use Types Packs/Day Years Used Date Smoking Tobacco: Former Cigarettes 0.3 45 Smokeless Tobacco: Never Comments:Quit 3 days ago Alcohol Use Standard Drinks/Week Comments Yes 0 (1 standard drink = 0.6 oz pur e alcohol) 1-2x a year PHQ-2 Answer Date Recorded Total Score - Questions 1-9 0 06/07/2021 Sexually Active Control Partners Comments Not Currently [...] Exposure Response Date Recorded In the last 10 days, have yo u been in contact with someone who was confirmed or suspected to have Coronavirus/COVID-19? No / Unsure 12/07/2022 11:41 AM CDT documented as of this encounter Plan of Treatment Upcoming Encounters Date Type Department Care Team (Late st Contact Info) Description 03/10/2025 4:00 PM CDT [facility] [address] [place] [address] Nolvia Lebron APRN, MELIDA #[address] [address] Discharge Disposition: Discharged to home or Selfcare 03/10/2025 4:45 PM CDT [facility] [address] [place] [address] Nolvia Lebron APRN, MELIDA #[address] [address] Discharge Disposition: Discharged to home or Selfcare documented as of this encounter Visit Diagnoses Diagnosis Intractable vomiting with nausea documented in this encounter Additional Health Concerns Assessment Noted Time PHQ-9 Depression Total Score: 0 12/02/19 22 8:06 AM CDT documented as of this encounter Care Teams Terra Cotta Roofer Relationship Specialty Start Date End Date Nolvia Lebron APRN, MELIDA #[address] [address] PCP - General Advanced Practice Nurse 08/03/21 Cindy Morgan APRN, SHELL MAKER LOCKSTITCH Nurse Practitioner Advanced Practice Nurse 04/18/16 Juan M Hickey MD General Surgery 10/25/16 06/09/24 Iker Cedillo DO Gastroenterology 11/07/16 06/09/24 Barbara Lamar MD Obstetrics & Gynecology 05/15/20 Prema Marcelo APRN, SHELL MAKER LOCKSTITCH #2 [place] [address] Nurse Practitioner Advanced Practice Nurse 08/10/22 Zina Lugo APRN, SHELL MAKER LOCKSTITCH #[facility] [address] [place] [address] Nurse Practitioner Cardiology 12/27/23 01/09/25 documented as of this encounter
--- OUTSIDE RECORDS SUMMARY | 2025-03-09 09:21 | XMS_ITS | Encounter Summary ---
Author Organization [facility] Address [address] [place] [place] [address] Phone Care Team Providers Care Data Management Engineer Name Role Phone Barbara Lamar MD Unavailable Unavail able Nolvia Lebron APRN, SERVICING REP Primary Care Provid er Prema Marcelo APRN, SERVICING REP Unavailable Zina Lugo APRN, SERVICING REP Unavailable [phone]- [phone] Reason for Visit * Reason Onset Date Comments Advice Only 10/04/2024 Encounter Details Date Type Department Care Team (Late st Contact Info) Description 10/04/2024 Telephone [facility] [address] [place] [address] Nolvia Lebron APRN, SERVICING REP #[address] [address] Advice Only Social History Tobacco Use Types Packs/Day Years Used Date Smoking Tobacco: Former Cigarettes 0.3 45 Smokeless Tobacco: Never Comments:Quit 3 days ago Alcohol Use Standard Drinks/Week Comments Yes 0 (1 standard drink = 0.6 oz pur e alcohol) 1-2x a year [facility] Utilities Answer Date Recorded In the past 12 months has [employer], [employer], or [employer] threatened to shut off services in your home? No 11/21/2023 Social Connection and Isolation Panel Answer Date Recorded In a typical week, how many times do you talk on the phone with family, friends, or neighbors? More than three times a week 11/21/2023 How often do you get togethe r with friends or relatives? More than three times a week 11/21/2023 How often do you attend chur ch or episcopalian services? More than 4 times per year 11/21/2023 Do you belong to any clubs o r organizations such as congregational groups, unions, fraternal or athletic groups, or school groups? Yes 11/21/2023 How often do you attend meet ings of the clubs or organizations you belong to? 1 to 4 times per year 11/21/2023 Are you , , di vorced, , never , or living with a partner? 11/21/2023 AUDIT-C Answer Date Recorded Q1: How often do you have a drink containing alc ohol? Monthly or less 11/21/2023 Q2: How many drinks containi ng alcohol do you have on a typical day when you are drinking? 1 or 2 11/21/2023 Q3: How often do you have si x or more drinks on one occasion? Never 11/21/2023 Overall Financial Resource Strain (CARDIA) Answe r Date Recorded How hard is it for you to pa y for the very basics like food, housing, medical care, and heating? Not hard at all 11/21/2023 PHQ-2 Answer Date Recorded Total Score - Questions 1-9 9 08/0 08/2022 [facility] - Occupational Stress Questionnaire Answer Date Recorded Do you feel stress - tense, restless, nervous, or anxious, or unable to sleep at night because your mind is troubled all the time - these days? Rather much 11/21/2023 Exercise Vital Sign Answer Date Recorde d On average, how many days pe r week do you engage in moderate to strenuous exercise (like a brisk walk)? 4 days 11/21/2023 On average, how many minutes do you engage in exercise at this level? 30 min 11/21/2023 Hunger Vital Sign Answer Date Recorded Within the past 12 months, y ou worried that your food would run out before you got the money to buy more. Never true Within the past 12 months, t he food you bought just didn't last and you didn't have money to get more. Sometimes true PRAPARE - Transportation Answer Date Re corded In the past 12 months, has l ack of transportation kept you from medical appointments or from getting medications? No 11/01 In the past 12 months, has l ack of transportation kept you from meetings, work, or from getting things needed for daily living? No 11/21/2023 Housing Stability Vital Sign Answer Chris e Recorded In the last 12 months, was t here a time when you were not able to pay the mortgage or rent on time? No 11/21/2023 In the last 12 months, how many places have you lived? 1 11/21/2023 In the last 12 months, was t here a time when you did not have a steady place to sleep or slept in a fci (including now)? No 11/21/2023 Sexually Active Control Partners Comments Not Currently Comments No Sex and Gender Information Value Date Recorded Sex Assigned at Not on file Legal Sex Female 10:18 PM CDT Gender Identity Not on file Sexual Orientation Not on file Occupation Industry Job Start Date Job End Date disabled Not on file Not on file Not on file documented as of this encounter Miscellaneous Notes * Telephone Encounter - Fabiola Coronado - 10/04/2024 1:10 PM CDT Symptom: Dizziness Outcome: Schedule an appointment at earliest convenience. Reason: Caller denied all higher acuity questions The caller rejected this outcome. Caller Denied: * Passed out * Can't stand (unless normally can't stand) * Trouble walking * Started within the past 3 days * Getting worse documented in this encounter Plan of Treatment Upcoming Encounters Date Type Department Care Team (Late st Contact Info) Description 03/10/2025 4:00 PM CDT [facility] [address] [place] [phone] Nolvia Lebron APRN, SERVICING REP #[address] [phone] Discharge Disposition: Discharged to home or Selfcare 03/10/2025 4:45 PM CDT Appointment [facility] [address] [place] [phone] Nolvia Lebron APRN, SERVICING REP #2 [facility] [address] [place] [address] Discharge Disposition: Discharged to home or Selfcare documented as of this encounter Visit Diagnoses Not on filedocumented in this encounter Additional Health Concerns Assessment Noted Time PHQ-9 Depression Total Score: 9 02/02/20 23 3:00 PM CDT documented as of this encounter Care Teams Data Management Engineer Relationship Specialty Start Date End Date Nolvia Lebron APRN, SERVICING REP #2 [facility] [address] [place] [address] PCP - General Advanced Practice Nurse 08/03/21 Barbara Lamar MD Obstetrics & Gynecology 05/15/20 Prema Marcelo APRN, SERVICING REP #2 [place] [address] Nurse Practitioner Advanced Practice Nurse 08/10/22 Zina Lugo APRN, SERVICING REP #2 [facility] [address] [place] [address] Nurse Practitioner Cardiology 12/27/23 01/09/25 documented as of this encounter
--- OUTSIDE RECORDS SUMMARY | 2025-03-09 09:21 | XMS_ITS | Encounter Summary ---
Author Organization [facility] Address [address] [facility] [place] [address] Phone Care Team Providers Care Family Practitioner Name Role Phone Barbara Lamar MD Unavailable Unavail able Nolvia Lebron APRN, [employer]ICE F[employer]ER Primary Care Provid er Prema Marcelo APRN, RICE F[employer]ER Unavailable Zina Lugo APRN, RICE FARMER Unavailable [phone] Reason for Visit * Reason Comments Medication Refill Encounter Details Date Type Department Care Team (Late st Contact Info) Description 10/26/2024 Refill [facility] - Family Medicine [facility] [address] [place] [address] Nolvia Lebron APRN, RICE FARMER #[address] [address] Medication Refill Social History Tobacco Use Types Packs/Day Years Used Date Smoking Tobacco: Former Cigarettes 0.3 45 Smokeless Tobacco: Never Comments:Quit 3 days ago Alcohol Use Standard Drinks/Week Comments Yes 0 (1 standard drink = 0.6 oz pur e alcohol) 1-2x a year [facility] Utilities Answer Date Recorded In the past 12 months has [employer], [employer], or [employer] threatened to shut off services in your [...] often do you attend chur ch or judaism services? More than 4 times per year 11/21/2023 Do you belong to any clubs o r organizations such as restoration groups, unions, fraternal or athletic groups, or [...] Score - Questions 1-9 9 08/0 08/2022 [facility] - Occupational [...] place to sleep or slept in a jail (including now)? No 11/21/2023 Sexually Active Control [...] Telephone Encounter - Chiqui Urrutia RN - 10/28/2024 10:56 AM CDT Images from the original note were not included. Crystal Daley, ALYSSIA RR 10/23/24 3:45 PM Note Tried contacting Noem[facility], the number is not a working number. Jamilah Chavez CMA LEIGH 10/22/24 4:47 PM Note Tried to call patient x2 and line was busy Me to [employer] Moa [employer] DS 10/22/24 10:09 AM Note Novlia Lebron, BERTA, RICE FARMER to [employer] Nurse [employer] (Selected Message) 10/22/24 10:03 AM Needs OV documented in this encounter Plan of Treatment Upcoming Encounters Date Type Department Care Team (Late st Contact Info) Description 03/10/2025 4:00 PM CDT [facility] [address] [place] [phone] Nolvia Lebron APRN, MELIDA #[address] [phone] Discharge Disposition: Discharged to home or Selfcare 03/10/2025 4:45 PM CDT [facility] [address] [place] [phone] Nolvia Lebron APRN, MELIDA #[address] [phone] Discharge Disposition: Discharged to home or Selfcare documented as of this encounter Visit Diagnoses Not on filedocumented in this encounter Additional Health Concerns Assessment Noted Time PHQ-9 Depression Total Score: 9 02/02/20 23 3:00 PM CDT documented as of this encounter Care Teams Family Practitioner Relationship Specialty Start Date End Date Nolvia Lebron APRN, MELIDA #[address] [phone] PCP - General Advanced Practice Nurse 08/03/21 Barbara Lamar MD Obstetrics & Gynecology 05/15/20 Prema Marcelo APRN, RICE FARMER [address] [place] [address] Nurse Practitioner Advanced Practice Nurse 08/10/22 Zina Lugo APRN, RICE FARMER #[address] [address] Nurse Practitioner Cardiology 12/27/23 01/09/25 documented as of this encounter
--- OUTSIDE RECORDS SUMMARY | 2025-03-09 09:21 | XMS_ITS | Clinical Summary ---
Author Organization [facility] Address [address] [place] [address] Care Team Providers Care Hedis Review Nurse Name Role Phone Dawson Rudd MD Primary Care Provider + [phone] Allergies Active Allergy Reactions Criticality Noted Date Comments Azithromycin Nausea Only 12/25/2015 Diclofenac Hives,Dizziness High 12/25/2015 Prednisone Agitation Low 08/24/2020 Medications ipratropium-albut felipe (COMBIVENT RESPIMAT) 20-100 mcg/actuation inhalerIndication s:Chronic Obstructive Pulmonary Disease with Bronchospasms Inhale 1 puff 4 (four) times a day as needed for wheezing or shortness of breath Active HYDROcodone-aceta minophen (NORCO) 5-325 mg per tabletIndications :Pain Take 1 tablet by mouth every 8 (eight) hours as needed for pain 20 tablet 09/15/19 21 Active albuterol HFA (PROVENTIL HFA,VENTOLIN HFA,PROAIR HFA) 90 mcg/actuation inhalerIndication s:Acute Asthma Attack,Chronic Obstructive Pulmonary Disease Inhale 2 puffs every 4 (four) hours as needed for wheezing or shortness of breath 01/02/20 24 Active rimegepant (NURTEC ODT) tablet,disintegra tingIndications:M igraine Take 1 tablet (75 mg total) by mouth as needed (Migraine) Active acetaminophen (TYLENOL) 500 mg tablet Take 1 tablet (500 mg total) by mouth every 6 (six) hours as needed for pain Crush pills until 03/07 when able to take pills whole 02/23/20 Active biotin 5 mg capsuleIndication s:Supplement Take 1 capsule (1 tablet total) by mouth nightly RESTART on 03/07 when able to take pills when whole 03/07/20 Active prochlorperazine (COMPAZINE) 25 mg suppositoryIndica tions:Nausea and Vomiting Insert 1 suppository (25 mg total) into the rectum every 12 (twelve) hours as needed for nausea or vomiting 12 suppository 1 02/23/20 Active magnesium glycinate 100 mg tabletIndications :Supplement Take 1 tablet by mouth nightly Crush pills until 03/07 when able to take pills whole 02/23/20 Active mirtazapine (REMERON) 15 mg tabletIndications :Sleep Take 1 tablet (15 mg total) by mouth nightly Crush pills until 03/07 when able to take pills whole 02/23/20 Active ondansetron (ZOFRAN) 4 mg tabletIndications :N/V Take 1 tablet (4 mg total) by mouth every 8 (eight) hours as needed for nausea or vomiting Crush pills until 03/07 when able to take pills whole 02/23/20 Active SUMAtriptan (IMITREX) 100 mg tabletIndications :Migraine Take 1 tablet (100 mg total) by mouth daily as needed for migraine Crush pills until 03/07 when able to take pills whole 02/23/20 Active TiZANidine (ZANAFLEX) 2 mg capsuleIndication s:Muscle Spasm Take 1 capsule (2 mg total) by mouth 3 (three) times a day as needed for muscle spasms Crush pills until 03/07 when able to take pills whole 02/23/20 Active oxyCODONE (ROXICODONE) solution 5 mg/5 mLIndications:Riki n Take 5 mL (5 mg total) by mouth every 4 (four) hours as needed for pain (pain not controlled with other medicines. Take stool softeners to prevent constipation.) 70 mL 02/23/20 Active polyethylene glycol (MIRALAX) 17 gram/dose bulk powder Take 17 g by mouth daily 510 g 02/23/20 Active Active Problems Problem Noted Date Diagnosed Date Hiatal hernia 02/22/2024 Rheumatoid arthritis, involv ing unspecified site, unspecified whether rheumatoid factor present 12/26/2023 Chronic obstructive pulmonar y disease, unspecified COPD type 12/26/2023 Hiatal hernia with GERD 12/20/2023 Radiculopathy, lumbosacral region 08/10/2020 Spinal stenosis of lumbar re gion without neurogenic claudication 08/10/2020 Chronic right-sided low back pain with right-doris ed sciatica 03/07/2019 Immunizations Immunization Administration Dates Next Due Influenza, Quadrivalent, Split, Intramuscular ,04/13/2017 Influenza, Trivalent, Preservative Free, Intramu scular 05/12/2012 Pneumococcal Polysaccharide PPV23 11/08/2016,04/2012 Tdap 12/28/2015 Surgical History Surgery Date Site/Laterality Comments WRIST SURGERY Left cyst removal ABDOMINAL SURGERY cyst removal APPENDECTOMY BARTHOLIN GLAND CYST EXCISION COLONOSCOPY UPPER GASTROINTESTINAL ENDOSCOPY OVARIAN CYST SURGERY x 2 Medical History Medical History Date Comments Asthma Asthma; Comments : [facility] 01/20/2016 - Rheumatoid arthritis (HCC) Rheum atoid arthritis; Comments: [facility] 01/20/2016 - Hx Other Medical stomach ulcers; Comments: [facility] 01/20/2016 - Depression Depression Hx Other Medical Headache, migra ine Osteoporosis Osteoporosis COPD (chronic obstructive pu lmonary disease) Bronchitis Pneumonia Anxiety Bipolar disorder Diverticulitis of colon Diverticulitis Gastroparesis GERD (gastroesophageal reflux disease) Insomnia Marijuana abuse Alcohol abuse Miscarriage x 12 Ruptured disk Tonsil stone Family History Medical History Relation Name Comments Cancer Other 1 Cancer, unknown ; Diabetes type II Other 2 Diabetes me llitus type 2; Arthritis Other 3 Arthritis; Alcohol abuse Other 4 Alcoholism; Mental illness Other 5 Mental illnes s; Anesthesia problems Neg Hx Relation Name Status Comments Other 1 Other 2 Other 3 Other 4 Other 5 Social History Tobacco Use Types Packs/Day Years Used Date Smoking Tobacco: Every Day Cigarettes 0.6 31.3 Started: 11/29/1993 Smokeless Tobacco: Never Tobacco Cessation:Ready to Q uit: Not Asked; Counseling Given: Not Answered Comments:quit a couple months ago Alcohol Use Standard Drinks/Week Comments No 0 (1 standard drink = 0.6 oz pur e alcohol) AUDIT-C Answer Date Recorded Q1: How often do you have a drink containing alc ohol? 2-4 times a month 01/26/2024 Q2: How many drinks containi ng alcohol do you have on a typical day when you are drinking? 3 or 4 01/26/2024 Q3: How often do you have si x or more drinks on one occasion? Less than monthly 01/26/2024 Personal Safety Answer Date Recorded Have you ever been in or are you currently in a harmful physical or emotional relationship or is someone making you feel afraid or unsafe? Denies 02/22/2024 Comments No Sex and Gender Information Value Date Recorded Sex Assigned at Not on file Legal Sex Female 1:20 AM [employer] Gender Identity Not on file Sexual Orientation Not on file Obstetrics History Last Filed Vital Signs Vital Sign Reading Time Taken Comments Blood Pressure 122/66 02/23/2024 7:50 AM CDT Pulse 78 02/23/2024 7:50 AM CDT Temperature 36.7 C (98.1 F) 02/23/2024 7:50 AM CDT Respiratory Rate 16 02/23/2024 3:35 AM CDT Oxygen Saturation 95% 02/23/2024 7:50 AM CDT Inhaled Oxygen Concentration - - Weight 56 kg (123 lb 7.3 oz) 02/22/2024 12:40 PM CDT Height 162.6 cm (5' 4.02) 02/22/2024 12:40 PM C DT Body Mass Index 21.18 02/22/2024 12:40 PM CDT Plan of Treatment Health Maintenance Due Date Last Done Comments Colon Cancer Screening-Colonoscopy 1959 Depression Screening 1959 Hepatitis B Screening 1977 Zoster Vaccine (1 of 2) 2009 Pneumococcal vaccine 65+ (2 of 2 - PCV) 11/08/2017 11/08/2016, 05/12/2012 Osteoporosis Screening-Bone Density Scan 02/10/2023 02/10/2021, 02/10/2021, 12/05/2014 Well Visit 65+ 02/12/2024 Breast Cancer Screening-Mammogram 01/08/2025 01/09/2024, 01/09/2024, 11/09/2022, Additional history exists Fall Risk Assessment 02/22/2025 02/23/2024 Influenza Vaccine (#1) 2025 8, 04/13/2017, 05/12/2012 DTaP/Tdap/Td Vaccine (2 - Td or Tdap) 12/27/2025 12/28/2015 Hepatitis C Screening Completed 05/17/2016 Procedures Procedure Name Priority Date/Time Associated Diagnosis Comments SERUM HEPATITIS C AB Routine 05/17/2016 12:45 PM [employer] DEXA AXIAL SKELETON BONE DENSITY 1 OR MORE SITES Routine 12/05/2014 10:11 AM CDT from Last 3 Months or Most Recently Relevant to Health Maintenance Results * Serum Hepatitis C ab (05/17/2016 12:45 PM [employer]) HCV ab Negative Negative CDR HISTOR ICAL RESULTS Comment:Test performed at [facility], [address] [place] [address], [place]., [address] Serum 05/17/2016 12:4 5 PM [employer] us Historical Provider LAB BLOOD ORDERABLES Nanette l Result CDR HISTORICAL RESULTS * Dexa Axial Skeleton Bone Density 1 or 2 Site (12/05/2014 10:11 AM CDT) Anatomical Region Laterality Modality Body N/A Radiographic Elvie ging 12/05/2014 10:1 1 AM CDT Narrative 12/08/2014 8:42 AM CDT DEXA Bone Density Axial Acc#: [id number] DATE OF EXAM: Dec 05 2014 CLINICAL HISTORY: Osteoarthritis. Postmenopausal. RESULT: DXA LEFT HIP RESULTS SUMMARY: BMD (g/cm2) T-score Z-score Neck 0.687 -1.5 -0.4 Total 0.796 -1.2 -0.5 DXA L-SPINE RESULTS SUMMARY: BMD (g/cm2) T-score Z-score L1 1.058 0.6 1.6 L2 1.040 0.1 1.2 L3 0.992 -0.8 0.3 L4 0.963 -0.9 0.3 Total 1.013 -0.3 0.8 10 year fracture risk for major osteoporotic fracture is 8.6%, for hip fracture 1.2%. IMPRESSION: 1. LUMBAR SPINE WHO CLASSIFICATION IS NORMAL. 2. LEFT HIP WHO CLASSIFICATION IS OSTEOPENIA/ COMMENT: W.H.O. defines the T-score of between -1 and -2.5 as osteopenia, the level at which there may be an increased risk of developing osteoporosis and fractures in the future. Osteoporosis is defined as T-score lower than -2.5 (significantly increased risk of fracture due to osteoporosis). T-score is a comparison to peak bone mineral density of young adult reference population. Z-score is a comparison to bone mineral density of sex and age group population. Interpreting Physician: GRICELDA WOOD M.D. Read on: Dec 05 2014 10:18A Transcribed by: hector On: Dec 05 2014 1:45P Approved Electronically by: GRICELDA WOOD M.D. on: Dec 08 2014 8:42A Attending: MIMI ARTEAGA Requesting: MIMI ARTEAGA Requesting Fax: -- Attending Fax: -- Attending ID: [id number] Requesting ID: [id number] Report To 1 ID: [id number] Report To 1 Name: MIMI ARTEAGA Report To 1 FAX: -- NextGen Order #: Procedure Note Provider, MD Samanta - 10/27/2016 DEXA Bone Density Axial Acc#: [id number] DATE OF EXAM: Dec 05 2014 CLINICAL HISTORY: Osteoarthritis. Postmenopausal. RESULT: DXA LEFT HIP RESULTS SUMMARY: BMD (g/cm2) T-score Z-score Neck 0.687 -1.5 -0.4 Total 0.796 -1.2-0.5 DXA L-SPINE RESULTS SUMMARY: BMD (g/cm2) T-score Z-score L1 1.058 0.6 1.6 L2 1.040 0.1 1.2 L30.992 -0.8 0.3 L4 0.963 -0.9 0.3 Total 1.013 -0.3 0.8 10 yearfracture risk for major osteoporotic fracture is 8.6%, for hip fracture1.2%. IMPRESSION: 1. LUMBAR SPINE WHO CLASSIFICATION IS NORMAL. 2. LEFT HIP WHO CLASSIFICATION IS OSTEOPENIA/ COMMENT: W.H.O. defines the T-score of between -1 and -2.5 as osteopenia, thelevel at which there may be an increased risk of developing osteoporosisand fractures in the future. Osteoporosis is defined as T-score lowerthan -2.5 (significantly increased risk of fracture due to osteoporosis).T-score is a comparison to peak bone mineral density of young adultreference population. Z-score is a comparison to bone mineral density ofsex and age group population. Interpreting Physician: GRICELDA WOOD M.D. Read on: Dec 05 2014 10:18A Transcribed by: [facility] On: Dec 05 2014 1:45P Approved Electronically by: GRICELDA WOOD M.D. on: Dec 08 2014 8:42A Attending: MIMI ARTEAGA Requesting: MIMI ARTEAGA Requesting Fax: -- Attending Fax: -- Attending ID: [id number] Requesting ID: [id number] Report To 1 ID: [id number] Report To 1 Name: MIMI ARTEAGA Report To 1 FAX: -- NextGen Order #: us Historical Provider MD DOLL DXA PROCEDURES Final Result from Last 3 Months or Most Recently Relevant to Health Maintenance Insurance IDPA [employer]MANA CHOICE MEDICARE PPO [employer] MEDICAID [facility] AETNA MEDICARE GOLD [facility] AETNA MEDICARE GOLD Advance Directives For more information, please contact: [phone] * Full Code (Latest Code Status on File) Date Activated Date Inactivated Comments 02/22/2024 12:32 PM 02/23/2024 6:23 PM Care Teams Hedis Review Nurse Relationship Specialty Start Date End Date Dawson Rudd MD [address] [facility] [address] PCP - General 05/21/20
--- OUTSIDE RECORDS SUMMARY | 2025-03-09 09:21 | XMS_ITS | Encounter Summary ---
Author Organization [facility] Address [address] [facility] [place] [address] Phone Care Team Providers Care Spinning Machine Operator Name Role Phone Cindy Morgan APRN, SEWER AND DRAIN TECHNICIAN Unavailable Juan M Hickey MD Unavailable [phone] Iker Cedillo DO Unavailable [phone] Barbara Lamar MD Unavailable Unavail able Nolvia Lebron APRN, SEWER AND DRAIN TECHNICIAN Primary Care Provid er Prema Marcelo APRN, SEWER AND DRAIN TECHNICIAN Unavailable Zina Lugo APRN, SEWER AND DRAIN TECHNICIAN Unavailable [phone] Reason for Visit * Reason Comments Medication Refill Encounter Details Date Type Department Care Team (Late st Contact Info) Description 04/21/2023 [facility]ill [facility] - [place] #2 [place] [address] Nolvia Lebron APRN, SEWER AND DRAIN TECHNICIAN #[address] [address] Medication Refill Social History Tobacco Use Types Packs/Day Years Used Date Smoking Tobacco: Every Day Cigarettes 0.3 45 Smokeless Tobacco: Never Comments:Quit 3 days ago Alcohol Use Standard Drinks/Week Comments Yes 0 (1 standard drink = 0.6 oz pur e alcohol) 1-2x a year PHQ-2 Answer Date Recorded Total Score - Questions 1-9 9 08/2022 Sexually Active Control Partners Comments Not Currently [...] Telephone Encounter - Chiqui Urrutia RN - 04/21/2023 3:06 PM CDT Medication failed the protocol, provider to review and approve the medication order if appropriate. Requested Prescriptions Pending Prescriptions Disp Refills mirtazapine (REMERON) 15 MG Tablet [Pharmacy Med Name: Mirtazapine 15 MG Oral Tablet] 90 Tablet 1 Sig: Take 1 tablet by mouth nightly Alpha-2 Receptor Antagonists (6 Month Refill Only) Protocol Failed - 04/21/2023 12:50 PM Failed - Has an encounter in the past 6 months with a depression or anxiety visit diagnosis Passed - Visit with relevant provider in past 6 months or upcoming 90 days Recent Visits Date Type Provider Dept 03/17/23 Office Visit Nolvia Lebron APRN, CNP [facility] 02/01/23 Office Visit Stephanie Redding APRN, MELIDA [facility] Showing recent visits within past 182 days and meeting all other requirements Future Appointments No visits were found meeting these conditions. Showing future appointments within next 90 days and meeting all other requirements Passed - Patient has established therapy with Alpha-2 Receptor Antagonists for at least 6 months documented in this encounter Plan of Treatment Upcoming Encounters Date Type Department Care Team (Late st Contact Info) Description 03/10/2025 4:00 PM CDT [facility]ment [facility] 1 [place] [address] Nolvia Lebron APRN, SEWER AND DRAIN TECHNICIAN #[address] [address] Discharge Disposition: Discharged to home or Selfcare 03/10/2025 4:45 PM CDT Appointment [facility] 1 [place] [phone] Nolvia Lebron APRN, SEWER AND DRAIN TECHNICIAN #[address] [address] Discharge Disposition: Discharged to home or Selfcare documented as of this encounter Visit Diagnoses Not on filedocumented in this encounter Additional Health Concerns Assessment Noted Time PHQ-9 Depression Total Score: 9 02/02/20 23 3:00 PM CDT documented as of this encounter Care Teams Spinning Machine Operator Relationship Specialty Start Date End Date Nolvia Lebron APRN, SEWER AND DRAIN TECHNICIAN #[address] [address] PCP - General Advanced Practice Nurse 08/03/21 Cindy Morgan APRN, SEWER AND DRAIN TECHNICIAN Nurse Practitioner Advanced Practice Nurse 04/18/16 Juan M Hickey MD General Surgery 10/25/16 06/09/24 Iker Cedillo DO Gastroenterology 11/07/16 06/09/24 Barbara Lamar MD Obstetrics & Gynecology 05/15/20 Prema Marcelo APRN, SEWER AND DRAIN TECHNICIAN #2 [place] [address] Nurse Practitioner Advanced Practice Nurse 08/10/22 Zina Lugo APRN, SEWER AND DRAIN TECHNICIAN #2 [facility] [address] [place] [address] Nurse Practitioner Cardiology 12/27/23 01/09/25 documented as of this encounter
--- OUTSIDE RECORDS SUMMARY | 2025-03-09 09:21 | XMS_ITS | Encounter Summary ---
Author Organization [facility] Address [address] [facility] [place] [address] Phone Care Team Providers Care Billet Straightener Name Role Phone Cindy Morgan APRN, LUNCHROOM AIDE Unavailable Juan M Hickey MD Unavailable [phone] Iker Cedillo DO Unavailable [phone] Barbara Lamar MD Unavailable Unavail able Nolvia Lebron APRN, LUNCHROOM AIDE Primary Care Provid er Prema Marcelo APRN, LUNCHROOM AIDE Unavailable Zina Lugo APRN, LUNCHROOM AIDE Unavailable [phone]- [phone] Reason for Visit * Reason Comments Medication Refill Encounter Details Date Type Department Care Team (Late st Contact Info) Description 11/12/2022 Refill [facility] - [place] #2 [place] [address] Nolvia Lebron APRN, LUNCHROOM AIDE #[address] [address] Medication Refill Social History Tobacco Use Types Packs/Day Years Used Date Smoking Tobacco: Former Cigarettes 0.3 45 Smokeless Tobacco: Never Comments:Quit 3 days ago Alcohol Use Standard Drinks/Week Comments Yes 0 (1 standard drink = 0.6 oz pur e alcohol) 1-2x a year PHQ-2 Answer Date Recorded Total Score - Questions 1-9 0 07/2021 Sexually Active Control Partners Comments Not Currently [...] suspected to have Coronavirus/COVID-19? No / Unsure 11/09/2022 2:57 PM CDT documented as of this encounter Miscellaneous Notes * Telephone Encounter - Chiqui Urrutia RN - 11/14/2022 9:44 AM CDT Name from pharmacy: Ondansetron HCl 4 MG Oral Tablet Will file in chart as: ondansetron (ZOFRAN) 4 MG Tablet The original prescription was discontinued on 09/26/2022 by Nolvia Lebron APRN, CNP documented in this encounter Plan of Treatment Upcoming Encounters Date Type Department Care Team (Late st Contact Info) Description 03/10/2025 4:00 PM CDT [facility] 1 [place] [phone] Nolvia Lebron APRN, LUNCHROOM AIDE #[address] [phone] Discharge Disposition: Discharged to home or Selfcare 03/10/2025 4:45 PM CDT [facility]ment [facility] 1 [place] [phone] Nolvia Lebron APRN, LUNCHROOM AIDE #[address] [address] Discharge Disposition: Discharged to home or Selfcare documented as of this encounter Visit Diagnoses Diagnosis Intractable vomiting with nausea documented in this encounter Additional Health Concerns Assessment Noted Time PHQ-9 Depression Total Score: 0 12/02/19 8:06 AM CDT documented as of this encounter Care Teams Billet Straightener Relationship Specialty Start Date End Date Nolvia Lebron APRN, LUNCHROOM AIDE #2 [facility] [address] [place] [address] PCP - General Advanced Practice Nurse 08/03/21 Cindy Morgan APRN, LUNCHROOM AIDE Nurse Practitioner Advanced Practice Nurse 04/18/16 Juan M Hickey MD General Surgery 10/25/16 06/09/24 Iker Cedillo DO Gastroenterology 11/07/16 06/09/24 Barbara Lamar MD Obstetrics & Gynecology 05/15/20 Prema Marcelo APRN, LUNCHROOM AIDE #2 [facility] [place] [address] Nurse Practitioner Advanced Practice Nurse 08/10/22 Zina Lugo APRN, LUNCHROOM AIDE [facility] [address] [place] [address] Nurse Practitioner Cardiology 12/27/23 01/09/25 documented as of this encounter
--- OUTSIDE RECORDS SUMMARY | 2025-03-09 09:21 | XMS_ITS | Encounter Summary ---
Author Organization [facility] Address [address] [place] [facility] [place] [address] Phone Care Team Providers Care Transfer Pumper Name Role Phone Cindy Morgan APRN, FRENCH BINDER Unavailable Juan M Hickey MD Unavailable [phone] Iker Cedillo DO Unavailable [phone] Barbara Lamar MD Unavailable Unavail able Dawson Rudd MD Primary Care Provider [phone] Nolvia Lebron BEER COIL CLEANER, FRENCH BINDER Primary Care Provid er Prema Marcelo BEER COIL CLEANER, FRENCH BINDER Unavailable Zina Lugo BEER COIL CLEANER, FRENCH BINDER Unavailable + [phone] Reason for Visit * Reason Comments Medication Refill Encounter Details Date Type Department Care Team (Late st Contact Info) Description 07/04/2020 Refill [facility] - [place] #2 [place] [phone] Dawson Rudd MD #[address] [address] Medication Refill Social History Tobacco Use Types [...] Telephone Encounter - Dawson Rudd MD - 07/05/2020 12:00 PM CST Prescription approved. Please call in BONDER * Telephone Encounter - Molly Keen RN - 07/04/2020 3:55 PM CST Medication failed the protocol, provider to review and approve the medication order if appropriate. Requested Prescriptions Pending Prescriptions Disp Refills cyclobenzaprine (FLEXERIL) 10 MG Tablet [Pharmacy Med Name: Cyclobenzaprine HCl 10 MG Oral Tablet] 42 Tab 0 Sig: TAKE 1 TABLET BY MOUTH THREE TIMES DAILY NEEDED FOR MUSCLE SPASMS FOR UP TO 14 DAYS Not Delegated - Analgesics: Muscle Relaxants Failed - 07/04/2020 1:30 PM Failed - This refill cannot be delegated Passed - Valid encounter within last 6 months Past Office Visits Recent Outpatient Visits 1 month ago Right-sided ischial pain [facility] - Family Medicine - Dawson Dickerson MD 1 month ago Pulmonary emphysema, unspecified emphysema type (HCC) [facility] Medical [facility] - Dawson Dickerson MD Upcoming Appointments SEAM RUBBER - Recent and Past Visits Recent Visits Date Type Provider Dept 05/26/20 Office Visit Dawson Rudd MD [facility] 05/15/20 Office Visit [facility]udd MD [facility] Showing recent visits within past 460 days with a meds authorizing provider and meeting all other requirements Future Appointments No visits were found meeting these conditions. Showing future appointments within next 90 days with a meds authorizing provider and meeting all other requirements BONDER documented in this encounter Plan of Treatment Upcoming Encounters Date Type Department Care Team (Late st Contact Info) Description 03/10/2025 4:00 PM CDT [facility] 1 [place] [address] Nolvia Lebron APRN, MELIDA #[address] [address] Discharge Disposition: Discharged to home or Selfcare 03/10/2025 4:45 PM CDT [facility] [address] [place] [address] Nolvia Lebron APRN, MELIDA #[address] [address] Discharge Disposition: Discharged to home or Selfcare documented as of this encounter Visit Diagnoses Not on filedocumented in this encounter Additional Health Concerns Infection Onset Date Last Indicated Resolved Time COVID - 19 07/26/2021 07/26/2021 07/27/2021 9:40 AM RAIL BONDER COVID - 19 Confirmed 07/26/2021 07/26/2021 022 12:16 AM RAIL BONDER Assessment Noted Time PHQ-9 Depression Total Score: 0 05/15/20 20 10:08 AM RAIL BONDER documented as of this encounter Care Teams Transfer Pumper Relationship Specialty Start Date End Date Dawson Rudd MD #[address] [address] PCP - General Family Medicine 05/26/20 08/02/21 Nolvia Lebron APRN, MELIDA #[address] [address] PCP - General Advanced Practice Nurse 08/03/21 Cindy Morgan, BEER COIL CLEANER, FRENCH BINDER Nurse Practitioner Advanced Practice Nurse 04/18/16 Juan M Hickey MD General Surgery 10/25/16 06/09/24 Iker Cedillo DO Gastroenterology 11/07/16 06/09/24 Barbara Lamar MD Obstetrics & Gynecology 05/15/20 Prema Marcelo APRN, FRENCH BINDER #2 [place] [address] Nurse Practitioner Advanced Practice Nurse 08/10/22 Zina Lugo APRN, FRENCH BINDER #2 [facility] [address] [place] [address] Nurse Practitioner Cardiology 12/27/23 01/09/25 documented as of this encounter
--- OUTSIDE RECORDS SUMMARY | 2025-03-09 09:21 | XMS_ITS | Encounter Summary ---
Author Organization [facility] Address [address] [facility] [place] [address] Phone Care Team Providers Care Bilingual Teacher Aide Name Role Phone Cindy Morgan APRN, ELECTRIC WHEELCHAIR REPAIRER Unavailable Juan M Hickey MD Unavailable [phone] Iker Cedillo DO Unavailable [phone] Barbara Lamar MD Unavailable Unavail able Nolvia Lebron TRIMMER MEAT, ELECTRIC WHEELCHAIR REPAIRER Primary Care Provid er Prema Marcelo APRN, ELECTRIC WHEELCHAIR REPAIRER Unavailable Zina Lugo TRIMMER MEAT, ELECTRIC WHEELCHAIR REPAIRER Unavailable [phone] Reason for Visit * Reason Comments Medication Refill Encounter Details Date Type Department Care Team (Late st Contact Info) Description 09/20/2023 Refill [facility] - [place] #2 [place] [phone] Florentin Monroe MD #2 [place] [address] Medication Refill Social History Tobacco Use Types [...] encounter Miscellaneous Notes * Telephone Encounter - Emerita Thomas RN - 09/21/2023 2:49 PM CDT [facility] for pediatric and adult patients. * Telephone Encounter - Emerita Thomas RN - 09/21/2023 2:45 PM CDT Medication failed protocol due to patient needs an appt. Called patient to offer an appt. Patient scheduled an appt for 10/24/2023. documented in this encounter Plan of Treatment Upcoming Encounters Date Type Department Care Team (Late st Contact Info) Description 03/10/2025 4:00 PM CDT [facility] 1 [place] [address] Nolvia Lebron APRN, ELECTRIC WHEELCHAIR REPAIRER #[address] [phone] Discharge Disposition: Discharged to home or Selfcare 03/10/2025 4:45 PM CDT [facility] 1 [place] [address] Nolvia Lebron APRN, ELECTRIC WHEELCHAIR REPAIRER #[address] [address] Discharge Disposition: Discharged to home or Selfcare documented as of this encounter Visit Diagnoses Not on filedocumented in this encounter Additional Health Concerns Assessment Noted Time PHQ-9 Depression Total Score: 9 02/02/20 23 3:00 PM CDT documented as of this encounter Care Teams Bilingual Teacher Aide Relationship Specialty Start Date End Date Noliva Lebron APRN, ELECTRIC WHEELCHAIR REPAIRER #[address] [facility] [address] [place] [address] PCP - General Advanced Practice Nurse 08/03/21 Cindy Morgan APRN, ELECTRIC WHEELCHAIR REPAIRER Nurse Practitioner Advanced Practice Nurse 04/18/16 Juan M Hickey MD General Surgery 10/25/16 06/09/24 Iker Cedillo DO Gastroenterology 11/07/16 06/09/24 Barbara Lamar MD Obstetrics & Gynecology 05/15/20 Prema Marcelo APRN, ELECTRIC WHEELCHAIR REPAIRER #2 [place] [address] Nurse Practitioner Advanced Practice Nurse 08/10/22 Zina Lugo APRN, ELECTRIC WHEELCHAIR REPAIRER #2 [facility] [address] [place] [address] Nurse Practitioner Cardiology 12/27/23 01/09/25 documented as of this encounter
--- OUTSIDE RECORDS SUMMARY | 2025-03-09 09:21 | XMS_ITS | Encounter Summary ---
Author Organization [facility] Address [address] [facility] [place] [address] Phone Care Team Providers Care Safety Coordinator Name Role Phone Cindy Morgan APRN, LAWN AND TREE SERVICE SPRAY SUPERVISOR Unavailable Juan M Hickey MD Unavailable [phone] Iker Cedillo DO Unavailable [phone] Barbara Lamar MD Unavailable Unavail able Nolvia Lebron APRN, LAWN AND TREE SERVICE SPRAY SUPERVISOR Primary Care Provid er Prema Marcelo APRN, LAWN AND TREE SERVICE SPRAY SUPERVISOR Unavailable Zina Lugo APRN, LAWN AND TREE SERVICE SPRAY SUPERVISOR Unavailable [phone]- [phone] Reason for Visit * Reason Comments Medication Refill Encounter Details Date Type Department Care Team (Late st Contact Info) Description 11/19/2021 Refill [facility] - [place] #2 [place] [address] Nolvia Lebron APRN, LAWN AND TREE SERVICE SPRAY SUPERVISOR #[address] [address] Medication Refill Social History Tobacco Use Types Packs/Day Years Used Date Smoking Tobacco: Every Day Cigarettes 0.5 45 Smokeless Tobacco: Never Comments:2-3 day Alcohol Use Standard Drinks/Week Comments No 0 (1 standard drink = 0.6 oz pure alcohol) use to be heavy drinker-quit drinking 20 years PHQ-2 Answer Date Recorded Total Score - Questions 1-9 0 1208/2020 Sexually Active Control Partners Comments Not Currently [...] suspected to have Coronavirus/COVID-19? No / Unsure 11/18/2021 11:54 AM CDT documented as of this encounter Miscellaneous Notes * Telephone Encounter - Chiqui Urrutia RN - 11/19/2021 3:25 PM CDT Medication failed the protocol, provider to review and approve the medication order if appropriate. Requested Prescriptions Pending Prescriptions Disp Refills mirtazapine (REMERON) 15 MG Tablet [Pharmacy Med Name: Mirtazapine 15 MG Oral Tablet] 30 Tablet 0 Sig: Take 1 tablet by mouth nightly Alpha-2 Receptor Antagonists (6 Month Refill Only) Protocol Failed - 11/19/2021 1:30 PM Failed - Has an encounter in the past 6 months with a depression or anxiety visit diagnosis Passed - Visit with relevant provider in past 6 months or upcoming 90 days Recent Visits Date Type Provider Dept 10/29/21 Office Visit Tia Mason PAC [facility] 08/03/21 Telemedicine Nolvia Lebron APRN, MELIDA [facility] 07/26/21 Telemedicine Nolvia Lebron APRN, MELIDA [facility] 07/15/21 Office Visit Nolvia Lebron APRN, MELIDA [facility] 06/04/21 Office Visit Nolvia Lebron APRN, MELIDA [facility] Showing recent visits within past 182 days [...] [facility] 1 [place] [address] Nolvia Lebron APRN, LAWN AND TREE SERVICE SPRAY SUPERVISOR #[address] [address] Discharge Disposition: Discharged to home or Selfcare 03/10/2025 4:45 PM CDT [facility] 1 [place] [address] Nolvia Lebron APRN, LAWN AND TREE SERVICE SPRAY SUPERVISOR #[address] [address] Discharge Disposition: Discharged to home or Selfcare documented as of this encounter Visit Diagnoses Not on filedocumented in this encounter Additional Health Concerns Assessment Noted Time PHQ-9 Depression Total Score: 0 06/04/20 21 8:55 AM ACQUISITION PROFESSIONAL documented as of this encounter Care Teams Safety Coordinator Relationship Specialty Start Date End Date Nolvia Lebron APRN, MELIDA #[address] [address] PCP - General Advanced Practice Nurse 08/03/21 Cindy Morgan APRN, LAWN AND TREE SERVICE SPRAY SUPERVISOR Nurse Practitioner Advanced Practice Nurse 04/18/16 Juan M Hickey MD General Surgery 10/25/16 06/09/24 Iker Cedillo DO Gastroenterology 11/07/16 06/09/24 Barbara Lamar MD Obstetrics & Gynecology 05/15/20 Prema Marcelo APRN, LAWN AND TREE SERVICE SPRAY SUPERVISOR #2 [place] [address] Nurse Practitioner Advanced Practice Nurse 08/10/22 Zina Lugo APRN, LAWN AND TREE SERVICE SPRAY SUPERVISOR #2 [facility] [address] [place] [address] Nurse Practitioner Cardiology 12/27/23 01/09/25 documented as of this encounter
--- OUTSIDE RECORDS SUMMARY | 2025-03-09 09:21 | XMS_ITS | Encounter Summary ---
Author Organization [facility] Address [address] [facility] [place] [address] Phone Care Team Providers Care Square Cutter Name Role Phone Cindy Morgan APRN, CENA Unavailable Juan M Hickey MD Unavailable [phone] Iker Cedillo DO Unavailable [phone] Barbara Lamar MD Unavailable Unavail able Dawson Rudd MD Primary Care Provider [phone] Nolvia Lebron WELT SEWER, CENA Primary Care Provid er Prema Marcelo WELT SEWER, CENA Unavailable Zina Lugo WELT SEWER, CENA Unavailable + [phone] Reason for Visit * Reason Comments Medication Refill Encounter Details Date Type Department Care Team (Late st Contact Info) Description 11/10/2020 Refill [facility] - [place] #2 [place] [phone] Tia Mason, DAYAN #2 [place] [address] Medication Refill Social History Tobacco Use Types [...] Telephone Encounter - Chiqui Urrutia RN - 11/11/2020 10:47 AM CDT The original prescription was reordered on 11/11/2020 by Dawson Rudd MD * Telephone Encounter - Chiqui Urrutia RN - 11/11/2020 8:33 AM CDT You declined this for Needs more info - Patient saw Tia 10/29/20 - Tia explains her reasoning for this medication in chart note. This is patient's second request. documented in this encounter Plan of Treatment Upcoming Encounters Date Type Department Care Team (Late st Contact Info) Description 03/10/2025 4:00 PM CDT Appointment [facility] 1 [place] [phone] Nolvia eLbron APRN, CENA #[address] [phone] Discharge Disposition: Discharged to home or Selfcare 03/10/2025 4:45 PM CDT Appointment [facility] 1 [place] [address] Nolvia Lebron APRN, CENA #[address] [address] Discharge Disposition: Discharged to home or Selfcare documented as of this encounter Visit Diagnoses Not on filedocumented in this encounter Additional Health Concerns Infection Onset Date Last Indicated Resolved Time COVID - 19 07/26/2021 07/26/2021 07/27/2021 9:40 AM CLERICAL OFFICE COVID - 19 Confirmed 07/26/2021 07/26/2021 022 12:16 AM CLERICAL OFFICE Assessment Noted Time PHQ-9 Depression Total Score: 0 05/15/20 20 10:08 AM CLERICAL OFFICE documented as of this encounter Care Teams Square Cutter Relationship Specialty Start Date End Date Dawson Rudd MD #[address] [address] PCP - General Family Medicine 05/26/20 08/02/21 Nolvia Lebron APRN, CENA #[address] [address] PCP - General Advanced Practice Nurse 08/03/21 Cindy Morgan APRN, CENA Nurse Practitioner Advanced Practice Nurse 04/18/16 Juan M Hickey MD General Surgery 10/25/16 06/09/24 Iker Cedillo DO Gastroenterology 11/07/16 06/09/24 Barbara Lamar MD Obstetrics & Gynecology 05/15/20 Prema Marcelo APRN, CENA #2 [place] [address] Nurse Practitioner Advanced Practice Nurse 08/10/22 Zina Lugo APRN, CENA #2 [facility] [address] [place] [address] Nurse Practitioner Cardiology 12/27/23 01/09/25 documented as of this encounter
--- OUTSIDE RECORDS SUMMARY | 2025-03-09 09:21 | XMS_ITS | Encounter Summary ---
Author Organization [facility] Address [address] [facility] [place] [address] Phone Care Team Providers Care Optometric Tech Name Role Phone Cindy Morgan APRN, COFFEE HOST Unavailable Juan M Hickey MD Unavailable [phone] Iker Cedillo DO Unavailable [phone] Barbara Lamar MD Unavailable Unavail able Nolvia Lebron APRN, COFFEE HOST Primary Care Provid er Prema Marcelo APRN, COFFEE HOST Unavailable Zina Lugo APRN, COFFEE HOST Unavailable [phone] Reason for Visit * Reason Comments Medication Refill Encounter Details Date Type Department Care Team (Late st Contact Info) Description 07/11/2023 [facility]ill [facility] - [place] #2 [place] [address] Nolvia Lebron APRN, COFFEE HOST #[address] [address] Medication Refill Social History Tobacco [...] Telephone Encounter - Chiqui Urrutia RN - 07/12/2023 7:52 AM CST PRN medication requires review from provider Per nursing clinical judgement, provider to review and approve the medication(s) order(s) if appropriate. Requested Prescriptions Pending Prescriptions Disp Refills albuterol 108 (90 Base) MCG/ACT Aerosol Solution [Pharmacy Med Name: Albuterol Sulfate HFA 108 (90 Base) MCG/ACT Inhalation Aerosol Solution] 18 g 1 Sig: INHALE 1 TO 2 PUFFS BY MOUTH EVERY 4 HOURS NEEDED FOR WHEEZING OR COUGH Short Acting Inhaled Beta-Agonists Protocol Passed - 07/11/2023 5:44 PM Passed - Visit with relevant provider in past 12 months or upcoming 90 days Recent Visits Date Type Provider Dept 03/17/23 Office Visit Nolvia Lebron APRN, [facility] 02/01/23 Office Visit Stephanie Redding APRN, MEL[facility] [place] 10/17/22 Office Visit Nolvia Lebron APRN, MEL[facility] [place] 10/11/22 Office Visit Nolvia Lebron APRN, [facility] 09/26/22 Office Visit Nolvia Lebron APRN, [facility] Showing recent visits within past 365 days and meeting all other requirements Future Appointments No visits were found meeting these conditions. Showing future appointments within next 90 days and meeting all other requirements INUOUS WAVE OPERATOR documented in this encounter Plan of Treatment Upcoming Encounters Date Type Department Care Team (Late st Contact Info) Description 03/10/2025 4:00 PM CDT [facility] [address] [place] [phone] Nolvia Lebron APRN, COFFEE HOST #[address] [address] Discharge Disposition: Discharged to home or Selfcare 03/10/2025 4:45 PM CDT [facility]ment [facility] [address] [place] [phone] Nolvia Lebron APRN, MELIDA #[address] [phone] Discharge Disposition: Discharged to home or Selfcare documented as of this encounter Visit Diagnoses Diagnosis Chronic obstructive pulmonary disease, unspecified COPD type (HCC) documented in this encounter Additional Health Concerns Assessment Noted Time PHQ-9 Depression Total Score: 9 02/02/20 23 3:00 PM CDT documented as of this encounter Care Teams Optometric Tech Relationship Specialty Start Date End Date Nolvia Lebron APRN, MELIDA #[address] [address] PCP - General Advanced Practice Nurse 08/03/21 Cindy Morgan APRN, COFFEE HOST Nurse Practitioner Advanced Practice Nurse 04/18/16 Juan M Hickey MD General Surgery 10/25/16 06/09/24 Iker Cedillo DO Gastroenterology 11/07/16 06/09/24 Barbara Lamar MD Obstetrics & Gynecology 05/15/20 Prema Marcelo APRN, COFFEE HOST #2 [place] [address] Nurse Practitioner Advanced Practice Nurse 08/10/22 Zina Lugo APRN, COFFEE HOST #2 [facility] [address] [place] [address] Nurse Practitioner Cardiology 12/27/23 01/09/25 documented as of this encounter
--- OUTSIDE RECORDS SUMMARY | 2025-03-09 09:21 | XMS_ITS | Encounter Summary ---
Author Organization [facility] Address [address] [facility] [place] [address] Phone Care Team Providers Care Shoe Lacer Name Role Phone Barbara Lamar MD Unavailable Unavail able Nolvia Lebron APRN, CNP Primary Care Provid er Prema Marcelo APRN, CNP Unavailable Reason for Visit * Reason Comments Medication Refill Encounter Details Date Type Department Care Team (Late st Contact Info) Description 03/08/2025 Refill [facility] - Family [facility] #2 [place] [address] Nolvia Lebron APRN, CNP #[address] [address] Medication Refill Social History Tobacco Use Types Packs/Day Years Used Date Smoking Tobacco: Former Cigarettes 0.3 45 Smokeless Tobacco: Never Comments:Quit 3 days ago Alcohol Use Standard Drinks/Week Comments Yes 0 (1 standard drink = 0.6 oz pur e alcohol) 1-2x a year [facility] Utilities Answer Date Recorded In the past 12 months has [employer] electric, gas, oil, or water company threatened to shut off services in your [...] often do you attend chur ch or hoahaoism services? More than 4 times per year 11/21/2023 Do you belong to any clubs o r organizations such as presybeterian groups, unions, fraternal or athletic groups, or school groups? Yes 11/21/2023 How often do you attend meet ings of the clubs or organizations you belong to? 1 to 4 times per year 11/21/2023 Are you , , di vorced, , never , or living with a partner? 11/21/2023 Overall Financial Resource Strain (CARDIA) Answe r Date Recorded How hard is it for you to pa y for the very basics like food, housing, medical care, and heating? Not hard at all 11/21/2023 PHQ-2 Answer Date Recorded Total Score - Questions 1-9 0 11/01 [facility] of Occupat ional Health - Occupational Stress [...] place to sleep or slept in a half-way (including now)? No 11/21/2023 AUDIT-C Answer Date Recorded Q1: How often do you have a drink containing alc ohol? Monthly or less 12/09/2024 Q2: How many drinks containi ng alcohol do you have on a typical day when you are drinking? 5 or 6 12/09/2024 Q3: How often do you have si x or more drinks on one occasion? Never 12/09/2024 Sexually Active Control Partners Comments Not Currently Comments No Sex and Gender Information Value Date Recorded Sex Assigned at Not on file Legal Sex Female 10:18 PM CDT Gender Identity Not on file Sexual Orientation Not on file Occupation Industry Job Start Date Job End Date disabled Not on file Not on file Not on file documented as of this encounter Plan of Treatment Upcoming Encounters Date Type Department Care Team (Late st Contact Info) Description 03/10/2025 4:00 PM CDT [facility]ment [facility] 1 [place] [phone] Nolvia Lebron APRN, BILINGUAL SPANISH INBOUND SALES #[address] [address] Discharge Disposition: Discharged to home or Selfcare 03/10/2025 4:45 PM CDT [facility]ment [facility] 1 [place] [address] Nolvia Lebron APRN, BILINGUAL SPANISH INBOUND SALES #[address] [address] Discharge Disposition: Discharged to home or Selfcare documented as of this encounter Visit Diagnoses Not on filedocumented in this encounter Additional Health Concerns Assessment Noted Time PHQ-9 Depression Total Score: 0 11/22/19 25 2:59 PM CDT documented as of this encounter Care Teams Shoe Lacer Relationship Specialty Start Date End Date Nolvia Lebron APRN, BILINGUAL SPANISH [employer] SALES #[address] [address] PCP - General Advanced Practice Nurse 08/03/21 Barbara Lamar MD Obstetrics & Gynecology 05/15/20 Prema Marcelo APRN, [employer] SP[employer] SALES #2 [place] [address] Nurse Practitioner Advanced Practice Nurse 08/10/22 documented as of this encounter
--- OUTSIDE RECORDS SUMMARY | 2025-03-09 09:21 | XMS_ITS | Encounter Summary ---
Author Organization [facility] Address [address] [facility] [place] [address] Phone Care Team Providers Care Machine Silk Screen Printer Name Role Phone Cindy Morgan APRN, TELEPHONE ORDER CLERK ROOM SERVICE Unavailable Juan M Hickey MD Unavailable [phone] Iker Cedillo DO Unavailable [phone] Barbara Lamar MD Unavailable Unavail able Dawson Rudd MD Primary Care Provider [phone] Nolvia Lebron REGISTERED NURSE SURGICAL SERVICES, TELEPHONE ORDER CLERK ROOM SERVICE Primary Care Provid er Prema Marcelo REGISTERED NURSE SURGICAL SERVICES, TELEPHONE ORDER CLERK ROOM SERVICE Unavailable Zina Lugo REGISTERED NURSE SURGICAL SERVICES, TELEPHONE ORDER CLERK ROOM SERVICE Unavailable + [phone] Reason for Visit * Reason Comments Medication Refill Encounter Details Date Type Department Care Team (Late st Contact Info) Description 11/26/2020 [facility]ill [facility] - [place] #2 [place] [phone] Dawson Rudd MD #[address] [address] Medication Refill Social History Tobacco Use Types [...] Telephone Encounter - Chiqui Urrutia RN - 12/01/2020 8:36 AM CDT The original prescription was reordered on 11/27/2020 by Lee Javier MD * Telephone Encounter - Chiqui Urrutia RN - 11/27/2020 8:48 AM CDT duplicate documented in this encounter Plan of Treatment Upcoming Encounters Date Type Department Care Team (Late st Contact Info) Description 03/10/2025 4:00 PM CDT [facility] 1 [place] [phone] Nolvia Lebron APRN, TELEPHONE ORDER CLERK ROOM SERVICE #[address] [phone] Discharge Disposition: Discharged to home or Selfcare 03/10/2025 4:45 PM CDT [facility] 1 [place] [address] Nolvia Lebron APRN, TELEPHONE ORDER CLERK ROOM SERVICE #[address] [address] Discharge Disposition: Discharged to home or Selfcare documented as of this encounter Visit Diagnoses Not on filedocumented in this encounter Additional Health Concerns Infection Onset Date Last Indicated Resolved Time COVID - 19 07/26/2021 07/26/2021 07/27/2021 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 COVERING INSTALLER COVID - 19 Confirmed 07/26/2021 07/26/2021 022 12:16 AM FLOOR COVERING INSTALLER Assessment Noted Time PHQ-9 Depression Total Score: 0 05/15/20 20 10:08 AM FLOOR COVERING INSTALLER documented as of this encounter Care Teams Machine Silk Screen Printer Relationship Specialty Start Date End Date Dawson Rudd MD #[address] [address] PCP - General Family Medicine 05/26/20 08/02/21 Nolvia Lebron APRN, TELEPHONE ORDER CLERK ROOM SERVICE #[address] [address] PCP - General Advanced Practice Nurse 08/03/21 Cindy Morgan APRN, TELEPHONE ORDER CLERK ROOM SERVICE Nurse Practitioner Advanced Practice Nurse 04/18/16 Juan M Hickey MD General Surgery 10/25/16 06/09/24 Iker Cedillo DO Gastroenterology 11/07/16 06/09/24 Brabara Lamar MD Obstetrics & Gynecology 05/15/20 Prema Marcelo APRN, TELEPHONE ORDER CLERK ROOM SERVICE #2 [place] [address] Nurse Practitioner Advanced Practice Nurse 08/10/22 Zina Lugo APRN, TELEPHONE ORDER CLERK ROOM SERVICE #2 [facility] [address] [place] [address] Nurse Practitioner Cardiology 12/27/23 01/09/25 documented as of this encounter
--- OUTSIDE RECORDS SUMMARY | 2025-03-09 09:21 | XMS_ITS | Encounter Summary ---
Author Organization [facility] Address [address] [facility] [place] [address] Phone Care Team Providers Care Throat Cutter Name Role Phone Cindy Morgan APRN, TENANT RELATIONS COORDINATOR Unavailable Juan M Hickey MD Unavailable [phone] Iker Cedillo DO Unavailable [phone] Barbara Lamar MD Unavailable Unavail able Nolvia Lebron PERSONALIZED LIVING MANAGER, TENANT RELATIONS COORDINATOR Primary Care Provid er Prema Marcelo APRN, TENANT RELATIONS COORDINATOR Unavailable Zina Lugo PERSONALIZED LIVING MANAGER, TENANT RELATIONS COORDINATOR Unavailable [phone] Reason for Visit * Reason Comments Medication Refill Encounter Details Date Type Department Care Team (Late st Contact Info) Description 12/18/2023 Refill [facility] - [place] #2 [place] [phone] Florentin Monroe MD #2 [place] [address] Medication Refill Social History Tobacco Use Types Packs/Day Years Used Date Smoking Tobacco: Every Day Cigarettes 0.3 45 Smokeless Tobacco: Never Comments:Quit 3 days ago Alcohol Use Standard Drinks/Week Comments Yes 0 (1 standard drink = 0.6 oz pur e alcohol) 1-2x a year [facility] Utilities Answer Date Recorded In the past 12 months has e electric, gas, oil, or water company threatened [...] 11/21/2023 How often do you attend chur or anabaptist services? More than 4 times per year 11/21/2023 Do you belong to any clubs o r organizations such as baptist groups, unions, fraternal or athletic groups, or [...] Score - Questions 1-9 9 08/0 08/2022 [facility] of Occupat ional Health - Occupational Stress [...] place to sleep or slept in a senior living (including now)? No 11/21/2023 Sexually Active Control [...] Telephone Encounter - Emerita Thomas RN - 12/18/2023 1:54 PM CDT Routing to provider due to Dr. Monroe is no longer with office. Per nursing clinical judgement, provider to review and approve the medication(s) order(s) if appropriate. Requested Prescriptions Pending Prescriptions Disp Refills pantoprazole (PROTONIX) 40 MG Tablet Delayed Response [Pharmacy Med Name: Pantoprazole Sodium 40 MGOral Tablet Delayed Release] 90 Tablet 0 Sig: Take 1 tablet by mouth once daily Proton Pump Inhibitors Protocol Passed - 12/18/2023 1:10 PM Passed - Visit with relevant provider in past 12 months or upcoming 90 days Recent Visits Date Type Provider Dept 11/21/23 Office Visit Nolvia Lebron APRN, MEL[facility] 11/16/23 Office Visit Prema Marcelo APRN, MELIDA [facility] 10/26/23 Office Visit Nolvia Lebron APRN, MEL[facility] 03/17/23 Office Visit Nolvia Lebron APRN, MELIDA [facility] 02/01/23 Office Visit Stephanie Redding APRN, MELIDA [facility] Showing recent visits within past 365 days and meeting all other requirements Future Appointments Date Type Provider Dept 02/26/24 Appointment Nolvia Lebron APRN, MELIDA [facility] Showing future appointments within next 90 days and meeting all other requirements documented in this encounter Plan of Treatment Upcoming Encounters Date Type Department Care Team (Late st Contact Info) Description 03/10/2025 4:00 PM CDT [facility] 1 [place] [address] Nolvia Lebron APRN, TENANT RELATIONS COORDINATOR #[address] [address] Discharge Disposition: Discharged to home or Selfcare 03/10/2025 4:45 PM CDT [facility] 1 [place] [address] Nolvia Lebron APRN, TENANT RELATIONS COORDINATOR #[address] [address] Discharge Disposition: Discharged to home or Selfcare documented as of this encounter Visit Diagnoses Not on filedocumented in this encounter Additional Health Concerns Assessment Noted Time PHQ-9 Depression Total Score: 9 02/02/20 3:00 PM CDT documented as of this encounter Care Teams Throat Cutter Relationship Specialty Start Date End Date Nolvia Lebron APRN, TENANT RELATIONS COORDINATOR #[address] [facility] [address] [place] [address] PCP - General Advanced Practice Nurse 08/03/21 Cindy Morgan APRN, TENANT RELATIONS COORDINATOR Nurse Practitioner Advanced Practice Nurse 04/18/16 Juan M Hickey MD General Surgery 10/25/16 06/09/24 Iker Cedillo DO Gastroenterology 11/07/16 06/09/24 Barbara Lamar MD Obstetrics & Gynecology 05/15/20 Prema Marcelo APRN, TENANT RELATIONS COORDINATOR #[address] [place] [address] Nurse Practitioner Advanced Practice Nurse 08/10/22 Zina Lugo APRN, TENANT RELATIONS COORDINATOR #2 [facility], [address] [place] [address] Nurse Practitioner Cardiology 12/27/23 01/09/25 documented as of this encounter
--- OUTSIDE RECORDS SUMMARY | 2025-03-09 09:21 | XMS_ITS | Encounter Summary ---
Author Organization [facility] Address [address] [facility] [place] [address] Phone Care Team Providers Care Equine Breeder Name Role Phone Cidny Morgan APRN, ANIMAL TRAINER SUPERVISOR Unavailable Juan M Hickey MD Unavailable [phone] Iker Cedillo DO Unavailable [phone] Barbara Lamar MD Unavailable Unavail able Nolvia Lebron APRN, ANIMAL TRAINER SUPERVISOR Primary Care Provid er Prema Marcelo APRN, ANIMAL TRAINER SUPERVISOR Unavailable Zina Lugo APRN, ANIMAL TRAINER SUPERVISOR Unavailable [phone] Reason for Visit * Reason Comments Medication Refill Encounter Details Date Type Department Care Team (Late st Contact Info) Description 10/03/2023 Refill [facility] - [place] #2 [place] [address] Nolvia Lebron APRN, ANIMAL TRAINER SUPERVISOR #[address] [address] Medication Refill Social History Tobacco [...] Telephone Encounter - Chiqui Urrutia RN - 10/04/2023 11:11 AM CDT Medication failed the protocol, provider to review and approve the medication order if appropriate. Requested Prescriptions Pending Prescriptions Disp Refills mirtazapine (REMERON) 15 MG Tablet [Pharmacy Med Name: Mirtazapine 15 MG Oral Tablet] 90 Tablet 1 Sig: Take 1 tablet by mouth nightly Alpha-2 Receptor Antagonists (6 Month Refill Only) Protocol Failed - 10/03/2023 3:02 PM Failed - Has an encounter in the past 6 months with a depression or anxiety visit diagnosis Passed - Visit with relevant provider in past 6 months or upcoming 90 days Recent Visits No visits were found meeting these conditions. Showing recent visits within past 182 days and meeting all other requirements Future Appointments Date Type Provider Dept 10/26/23 Appointment Nolvia Lebron APRN, MELIDA [facility] Showing future appointments within next 90 days and meeting all other requirements Passed - Patient has established therapy with Alpha-2 Receptor Antagonists for at least 6 months documented in this encounter Plan of Treatment Upcoming Encounters Date Type Department Care Team (Late st Contact Info) Description 03/10/2025 4:00 PM CDT [facility] 1 [place] [phone] Nolvia Lebron APRN, ANIMAL TRAINER SUPERVISOR #[address] [phone] Discharge Disposition: Discharged to home or Selfcare 03/10/2025 4:45 PM CDT Appointment [facility] Mammography 1 [place] [address] Nolvia Lebron APRN, ANIMAL TRAINER SUPERVISOR #[address] [address] Discharge Disposition: Discharged to home or Selfcare documented as of this encounter Visit Diagnoses Not on filedocumented in this encounter Additional Health Concerns Assessment Noted Time PHQ-9 Depression Total Score: 9 02/02/20 23 3:00 PM CDT documented as of this encounter Care Teams Equine Breeder Relationship Specialty Start Date End Date Nolvia Lebron APRN, ANIMAL TRAINER SUPERVISOR #[address] [phone] PCP - General Advanced Practice Nurse 08/03/21 Cindy Morgan APRN, ANIMAL TRAINER SUPERVISOR Nurse Practitioner Advanced Practice Nurse 04/18/16 Juan M Hickey MD General Surgery 10/25/16 06/09/24 Iker Cedillo DO Gastroenterology 11/07/16 06/09/24 Barbara Lamar MD Obstetrics & Gynecology 05/15/20 Prema Marcelo APRN, ANIMAL TRAINER SUPERVISOR #2 [place] [address] Nurse Practitioner Advanced Practice Nurse 08/10/22 Zina Lugo APRN, ANIMAL TRAINER SUPERVISOR #2 [facility], [address] [place] [address] Nurse Practitioner Cardiology 12/27/23 01/09/25 documented as of this encounter
--- OUTSIDE RECORDS SUMMARY | 2025-03-09 09:21 | XMS_ITS | Encounter Summary ---
Author Organization [facility] Address [address] [place] [address] Phone Care Team Providers Care Machine Rough Rounder Name Role Phone Cindy Morgan APRN, ELECTRONICS REPAIR TECHNICIAN Unavailable Juan M Hickey MD Unavailable [phone] Iker Cedillo DO Unavailable [phone] Barbara Lamar MD Unavailable Unavail able Dawson Rudd MD Primary Care Provider [phone] Nolvia Lebron LEAF SORTER, ELECTRONICS REPAIR TECHNICIAN Primary Care Provid er Prema Marcelo LEAF SORTER, ELECTRONICS REPAIR TECHNICIAN Unavailable Zina Lugo LEAF SORTER, ELECTRONICS REPAIR TECHNICIAN Unavailable [phone] Reason for Visit * Reason Comments Medication Refill Encounter Details Date Type Department Care Team (Late st Contact Info) Description 02/03/2021 Refill [facility] - [place] #2 [place] [address] Abby Corado December, [address] [place] [address] Medication Refill Social History Tobacco Use Types [...] encounter Miscellaneous Notes * Telephone Encounter - Valentine Albrecht CMA - 02/08/2021 10:56 AM CDT Pharmacy requesting refill of: Requested Prescriptions Pending Prescriptions Disp Refills ??? Dexilant 60 MG CAPSULE DELAYED RELEASE [Pharmacy Med Name: Dexilant 60 MG Oral Capsule Delayed Release] 90 Capsule 0 Sig: Take 1 capsule by mouth once daily Last fill: 07/30/2020 Patients last OV with GI: 01/18/2021 Next Office Visit with GI: Has recall for 1 year due in 12/2021, also has EGD scheduled for 02/23/[address] zavaleta documented in this encounter Plan of Treatment Upcoming Encounters Date Type Department Care Team (Late st Contact Info) Description 03/10/2025 4:00 PM CDT Appointment [facility] Mammography 1 [place] [address] Nolvia Lebron APRN, ELECTRONICS REPAIR TECHNICIAN #[address] [address] Discharge Disposition: Discharged to home or Selfcare 03/10/2025 4:45 PM CDT Appointment [facility] Mammography 1 [place] [address] Nolvia Lebron APRN, MELIDA #[address] [address] Discharge Disposition: Discharged to home or Selfcare documented as of this encounter Visit Diagnoses Not on filedocumented in this encounter Additional Health Concerns Infection Onset Date Last Indicated Resolved Time COVID - 19 07/26/2021 07/26/2021 07/27/2021 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 STEEL ERECTOR APPRENTICE COVID - 19 Confirmed 07/26/2021 07/26/2021 022 12:16 AM STEEL ERECTOR APPRENTICE Assessment Noted Time PHQ-9 Depression Total Score: 0 12/23/19 21 1:05 PM CDT documented as of this encounter Care Teams Machine Rough Rounder Relationship Specialty Start Date End Date Dawson Rudd MD #[address] [address] PCP - General Family Medicine 05/26/20 08/02/21 Nolvia Lebron APRN, MELIDA #[address] [address] PCP - General Advanced Practice Nurse 08/03/21 Cindy Morgan APRN, ELECTRONICS REPAIR TECHNICIAN Nurse Practitioner Advanced Practice Nurse 04/18/16 Juan M Hickey MD General Surgery 10/25/16 06/09/24 Iker Cedillo DO Gastroenterology 11/07/16 06/09/24 Barbara Lamar MD Obstetrics & Gynecology 05/15/20 Prema Marcelo APRN, ELECTRONICS REPAIR TECHNICIAN #2 [place] [address] Nurse Practitioner Advanced Practice Nurse 08/10/22 Zina Lugo APRN, ELECTRONICS REPAIR TECHNICIAN #[address] [place] [address] [place] [address] Nurse Practitioner Cardiology 12/27/23 01/09/25 documented as of this encounter
--- OUTSIDE RECORDS SUMMARY | 2025-03-09 09:21 | XMS_ITS | Encounter Summary ---
Author Organization [facility] Address [address] [facility] [place] [address] Phone Care Team Providers Care Zookeeper Name Role Phone Cindy Morgan APRN, UNDERWRITING SERVICE REPRESENTATIVE Unavailable Juan M Hickey MD Unavailable [phone] Iker Cedillo DO Unavailable [phone] Barbara Lamar MD Unavailable Unavail able Nolvia Lebron RETRIMMER, UNDERWRITING SERVICE REPRESENTATIVE Primary Care Provid er Prema Marcelo APRN, UNDERWRITING SERVICE REPRESENTATIVE Unavailable Zina Lugo RETRIMMER, UNDERWRITING SERVICE REPRESENTATIVE Unavailable [phone]- [phone] Reason for Visit * Reason Comments Medication Refill Encounter Details Date Type Department Care Team (Late st Contact Info) Description 06/14/2023 [facility]ill [facility] - [place] #2 [place] [phone] Florentin Monroe MD #[address] [place] [address] Medication Refill Social History Tobacco Use Types Packs/Day Years Used Date Smoking Tobacco: Every Day Cigarettes 0.3 45 Smokeless Tobacco: Never Comments:Quit 3 days ago Alcohol Use Standard Drinks/Week Comments Yes 0 (1 standard drink = 0.6 oz pur e alcohol) 1-2x a year PHQ-2 Answer Date Recorded Total Score - Questions 1-9 08/2022 Sexually Active Control Partners Comments Not [...] Telephone Encounter - Emerita Thomas RN - 06/14/2023 4:04 PM SECURITY PROFESSIONAL Medication refilled and [facility] for pediatric and adult patients. RITY PROFESSIONAL documented in this encounter Plan of Treatment Upcoming Encounters Date Type Department Care Team (Late st Contact Info) Description 03/10/2025 4:00 PM CDT [facility] 1 [place] [address] Nolvia Lebron APRN, UNDERWRITING SERVICE REPRESENTATIVE #[address] [address] Discharge Disposition: Discharged to home or Selfcare 03/10/2025 4:45 PM CDT [facility] 1 [place] [address] Nolvia Lebron APRN, UNDERWRITING SERVICE REPRESENTATIVE #[address] [address] Discharge Disposition: Discharged to home or Selfcare documented as of this encounter Visit Diagnoses Not on filedocumented in this encounter Additional Health Concerns Assessment Noted Time PHQ-9 Depression Total Score: 9 02/02/20 23 3:00 PM CDT documented as of this encounter Care Teams Zookeeper Relationship Specialty Start Date End Date Nolvia Lebron APRN, UNDERWRITING SERVICE REPRESENTATIVE #[address] [facility] [address] [place] [address] PCP - General Advanced Practice Nurse 08/03/21 Cindy Morgan, RETRIMMER, UNDERWRITING SERVICE REPRESENTATIVE Nurse Practitioner Advanced Practice Nurse 04/18/16 Juan M Hickey MD General Surgery 10/25/16 06/09/24 Iker Cedillo DO Gastroenterology 11/07/16 06/09/24 Barbara Lamar MD Obstetrics & Gynecology 05/15/20 Prema Marcelo RETRIMMER, UNDERWRITING SERVICE REPRESENTATIVE #[address] [place] [address] Nurse Practitioner Advanced Practice Nurse 08/10/22 Zina Lugo RETRIMMER, UNDERWRITING SERVICE REPRESENTATIVE #[address] [facility], [address] [place] [address] Nurse Practitioner Cardiology 12/27/23 01/09/25 documented as of this encounter
--- OUTSIDE RECORDS SUMMARY | 2025-03-09 09:21 | XMS_ITS | Encounter Summary ---
Author Organization [facility] Address [address] [facility] [place] [address] Phone Care Team Providers Care Shipping And Receiving Associate Name Role Phone Cindy Morgan APRN, LOST AND FOUND CLERK Unavailable Juan M Hickey MD Unavailable [phone] Iker Cedillo DO Unavailable [phone] Barbara Lamar MD Unavailable Unavail able Nolvia Lebron APRN, LOST AND FOUND CLERK Primary Care Provid er Prema Marcelo APRN, LOST AND FOUND CLERK Unavailable Zina Lugo APRN, LOST AND FOUND CLERK Unavailable [phone]- [phone] Reason for Visit * Reason Comments Medication Refill Encounter Details Date Type Department Care Team (Late st Contact Info) Description 07/10/2023 Refill [facility] - [place] #2 [place] [address] Nolvia Lebron APRN, LOST AND FOUND CLERK #[address] [address] Medication Refill Social History Tobacco [...] encounter Miscellaneous Notes * Telephone Encounter - Ivonne Crockett RN - 07/10/2023 2:11 PM CERTIFIED SCRUB TECH PRN medication Per nursing clinical judgement, provider to review and approve the medication(s) order(s) if appropriate. Requested Prescriptions Pending Prescriptions Disp Refills ipratropium-albuterol (DUO-NEB) 0.5-2.5 (3) MG/3ML Solution [Pharmacy Med Name: Ipratropium-Albuterol 0.5-2.5 (3) MG/3ML Inhalation Solution] 360 mL 0 Sig: USE 1 AMPULE IN NEBULIZER EVERY 6 HOURS NEEDED FOR WHEEZING OR SHORTNESS OF BREATH Inhaled Combinations Protocol Passed - 07/10/2023 12:10 PM Passed - Visit with relevant provider in past 12 months or upcoming 90 days Recent Visits Date Type Provider Dept 03/17/23 Office Visit Nolvia Lebron APRN, CNP [facility] 02/01/23 Office Visit Stephanie Redding APRN, CNP [facility] 10/17/22 Office Visit Nolvia Lebron APRN, CNP [facility] 10/11/22 Office Visit Nolvia Lebron APRN, [facility] 09/26/22 Office Visit Nolvia Lebron APRN, [facility] Showing recent visits within past 365 days and meeting all other requirements Future Appointments No visits were found meeting these conditions. Showing future appointments within next 90 days and meeting all other requirements Passed - Active short-acting beta agonist prescription IFIED SCRUB TECH documented in this encounter Plan of Treatment Upcoming Encounters Date Type Department Care Team (Late st Contact Info) Description 03/10/2025 4:00 PM CDT [facility] 1 [place] [address] Nolvia Lebron APRN, LOST AND FOUND CLERK #[address] [address] Discharge Disposition: Discharged to home or Selfcare 03/10/2025 4:45 PM CDT [facility] 1 [place] [address] Nolvia Lebron APRN, LOST AND FOUND CLERK #[address] [address] Discharge Disposition: Discharged to home or Selfcare documented as of this encounter Visit Diagnoses Diagnosis COPD exacerbation (HCC) Obstructive chronic bronchitis with exacerbation documented in this encounter Additional Health Concerns Assessment Noted Time PHQ-9 Depression Total Score: 9 02/02/20 23 3:00 PM CDT documented as of this encounter Care Teams Shipping And Receiving Associate Relationship Specialty Start Date End Date Nolvia Lebron APRN, [facility] #[address] [address] PCP - General Advanced Practice Nurse 08/03/21 Cindy Morgan APRN, LOST AND FOUND CLERK Nurse Practitioner Advanced Practice Nurse 04/18/16 Juan M Hickey MD General Surgery 10/25/16 06/09/24 Iker Cedillo DO Gastroenterology 11/07/16 06/09/24 Barbara Lamar MD Obstetrics & Gynecology 05/15/20 Prema Marcelo APRN, LOST AND FOUND CLERK #2 [place] [address] Nurse Practitioner Advanced Practice Nurse 08/10/22 Zina Lugo APRN, LOST AND FOUND CLERK #[address] [address] Nurse Practitioner Cardiology 12/27/23 01/09/25 documented as of this encounter
--- OUTSIDE RECORDS SUMMARY | 2025-03-09 09:21 | XMS_ITS | Clinical Summary ---
Author Organization [facility] Address [address] [place] [id number] Care Team Providers Care Surface Plate Finisher Name Role Phone Unavailable Primary Care Provider Unavailabl e Social History Tobacco Use Types Packs/Day Years Used Date Smoking Tobacco: Never Assessed Comments Unknown Sex and Gender Information Value Date Recorded Sex Assigned at Not on file Legal Sex Female 7:09 PM CDT Gender Identity Not on file Sexual Orientation Not on file Plan of Treatment Health Maintenance Due Date Last Done Comments Colorectal Cancer Screening Colonoscopy (10 Years) 1959 Hepatitis C 1977 DTaP, Tdap and Td Vaccines ( 1 - Tdap) 1978 Mammogram Screening 1999 Pneumococcal Vaccine: 50+ Ye ars (1 of 1 - PCV) 2009 Zoster Vaccines (1 of 2) 2009 Dexa Scan (General) 02/12/2024 COVID-19 Vaccine ( - 2023-2 5 season) 2025 RSV Immunization or 60+ Years (1 - 1-dose 75+ series) 2034 Meningococcal B Vaccine Aged Out No l onger eligible based on patient's age to complete this topic Meningococcal Vaccine Aged Out No brittni michael eligible based on patient's age to complete this topic RSV Immunizations Under 20 Months Aged Out No longer eligible based on patient's age to complete this topic
--- OUTSIDE RECORDS SUMMARY | 2025-03-09 09:21 | XMS_ITS | Encounter Summary ---
Author Organization [facility] Address [address] [facility] [place] [address] Phone Care Team Providers Care Drier Transfer Car Operator Name Role Phone Cindy Morgan APRN, CORONARY CARE UNIT NURSE Unavailable Juan M Hickey MD Unavailable [phone] Iker Cedillo DO Unavailable [phone] Barbara Lamar MD Unavailable Unavail able Dawson Rudd MD Primary Care Provider [phone] Nolvia Lebron LAW INSTRUCTOR, CORONARY CARE UNIT NURSE Primary Care Provid er Prema Marcelo LAW INSTRUCTOR, CORONARY CARE UNIT NURSE Unavailable Zina Lugo LAW INSTRUCTOR, CORONARY CARE UNIT NURSE Unavailable [phone] Reason for Visit * Reason Comments Medication Refill Encounter Details Date Type Department Care Team (Late st Contact Info) Description 11/18/2020 Refill [facility] - [place] #2 [place] [address] Dawson Rudd MD #[address] [address] Medication Refill Social History Tobacco Use Types [...] Telephone Encounter - Dawson Rudd MD - 11/19/2020 8:55 AM CDT Prescription pending signature * Telephone Encounter - Chiqui Urrutia RN - 11/19/2020 8:28 AM CDT [place] 11/11/20 for 5 days - patient is out and would like a refill Medication failed the protocol, provider to review and approve the medication order if appropriate. Requested Prescriptions Pending Prescriptions Disp Refills diazePAM (VALIUM) 5 MG Tablet [Pharmacy Med Name: diazePAM 5 MG Oral Tablet] 15 Tablet 0 Sig: TAKE 1 TABLET BY MOUTH EVERY 8 HOURS NEEDED FOR MUSCLE SPASM [facility] Not Delegated - Psychiatry: Anxiolytics/Hypnotics Failed - 11/19/2020 8:28 AM Failed - This refill cannot be delegated Passed - Valid encounter within last 6 months Past Office Visits Recent Outpatient Visits 6 days ago Fibromyalgia [facility] - [facility] Medicine - Nolvia Carter APN, CORONARY CARE UNIT NURSE 3 weeks ago Chronic right-sided low back pain with right-sided sciatica [facility] - Family Medicine - Tia Art, PAC 1 month ago Fibromyalgia [facility] - Family Medicine - Nolvia Carter APN, CORONARY CARE UNIT NURSE 1 month ago Fibromyalgia [facility] - Family [facility] [place] Nolvia Lebron APN, CORONARY CARE UNIT NURSE 1 month ago Fibromyalgia [facility] - Family [facility] [place] Nolvia Lebron AVIONICS SYSTEM ENGINEER, CORONARY CARE UNIT NURSE Upcoming Appointments PRODUCT DEVELOPMENT SCIENTIST - Recent and Past Visits Recent Visits Date Type Provider Dept 11/13/20 Office Visit Nolvia Lebron APN, CORONARY CARE UNIT NURSE [facility] 10/29/20 Office Visit Tia Mason PAC [facility] 10/16/20 Office Visit Nolvia Lebron APN, CORONARY CARE UNIT NURSE [facility] 09/29/20 Office Visit Nolvia Lebron APN, CORONARY CARE UNIT NURSE [facility] 09/25/20 Office Visit Nolvia Lebron APN, CORONARY CARE UNIT NURSE [facility] 05/26/20 [facility] Showing recent visits within past 460 days with a meds authorizing provider and meeting all other requirements Future Appointments No visits were found meeting these conditions. Showing future appointments within next 90 days with a meds authorizing provider and meeting all other requirements * Telephone Encounter - Noemí Trotter RN - 11/18/2020 1:12 PM CDT Patient calling and asking for Diazepam to be refilled. Order already pended for your review and approval. States she is out and would like today. documented in this encounter Plan of Treatment Upcoming Encounters Date Type Department Care Team (Late st Contact Info) Description 03/10/2025 4:00 PM CDT [facility] [place] [address] Nolvia Lebron APRN, MELIDA #[address] [address] Discharge Disposition: Discharged to home or Selfcare 03/10/2025 4:45 PM CDT Appointment [facility] 1 [place] [address] Nolvia Lebron APRN, CORONARY CARE UNIT NURSE #[address] [address] Discharge Disposition: Discharged to home or Selfcare documented as of this encounter Visit Diagnoses Not on filedocumented in this encounter Additional Health Concerns Infection Onset Date Last Indicated Resolved Time COVID - 19 07/26/2021 07/26/2021 07/27/2021 9:40 AM DIESEL TRACTOR ENGINE MECHANIC COVID - 19 Confirmed 07/26/2021 07/26/2021 022 12:16 AM DIESEL TRACTOR ENGINE MECHANIC Assessment Noted Time PHQ-9 Depression Total Score: 0 05/15/20 20 10:08 AM DIESEL TRACTOR ENGINE MECHANIC documented as of this encounter Care Teams Drier Transfer Car Operator Relationship Specialty Start Date End Date Dawson Rudd MD #[address] [address] PCP - General Family Medicine 05/26/20 08/02/21 Nolvia Lebron APRN, CORONARY CARE UNIT NURSE #[address] [address] PCP - General Advanced Practice Nurse 08/03/21 Cindy Morgan APRN, CORONARY CARE UNIT NURSE Nurse Practitioner Advanced Practice Nurse 04/18/16 Juan M Hickey MD General Surgery 10/25/16 06/09/24 Iker Cedillo DO Gastroenterology 11/07/16 06/09/24 Barbara Lamar MD Obstetrics & Gynecology 05/15/20 Prema Marcelo APRN, CORONARY CARE UNIT NURSE #2 [place] [address] Nurse Practitioner Advanced Practice Nurse 08/10/22 Zina Lugo APRN, CORONARY CARE UNIT NURSE #2 [facility] [address] [place] [address] Nurse Practitioner Cardiology 12/27/23 01/09/25 documented as of this encounter
--- OUTSIDE RECORDS SUMMARY | 2025-03-09 09:21 | XMS_ITS | Encounter Summary ---
Author Organization [facility] Address [address] [place] [place] [place] [address] Phone Care Team Providers Care Arbitrator Name Role Phone Cindy Morgan APRN, WELDER TOOL AND DIE Unavailable Juan M Hickey MD Unavailable [phone] Iker Cedillo DO Unavailable [phone] Barbara Lamar MD Unavailable Unavail able Nolvia Lebron SUPERVISOR FORCE ADJUSTMENT, WELDER TOOL AND DIE Primary Care Provid er Prema Marcelo APRN, WELDER TOOL AND DIE Unavailable Zina Lugo SUPERVISOR FORCE ADJUSTMENT, WELDER TOOL AND DIE Unavailable [phone] Encounter Details Date Type Department Care Team (Latest Contact Info) Description 07/20/2022 [facility] 1 [place] [address] Debbie Carrington MD [address] [place] [address] B12 deficiency (Primary Dx) Social History Tobacco Use Types Packs/Day Years Used Date Smoking Tobacco: Former Cigarettes 0.3 45 Smokeless Tobacco: Never Comments:Quit 3 days ago Alcohol Use Standard Drinks/Week Comments Yes 0 (1 standard drink = 0.6 oz pur e alcohol) 1-2x a year PHQ-2 Answer Date Recorded Total Score - Questions 1-9 0 /0 07/2021 Sexually Active Control Partners Comments Not [...] Info) Description 03/10/2025 4:00 PM CDT [facility] 1 [place] [address] Nolvia Lebron APRN, WELDER TOOL AND DIE #[address] [address] Discharge Disposition: Discharged to home or Selfcare 03/10/2025 4:45 PM CDT [facility] 1 [place] [address] Nolvia Lebron APRN, MELIDA #[address] [address] Discharge Disposition: Discharged to home or Selfcare documented as of this encounter Visit Diagnoses Diagnosis B12 deficiency- Primary Other B-complex deficiencies documented in this encounter Additional Health Concerns Assessment Noted Time PHQ-9 Depression Total Score: 0 12/02/19 22 8:06 AM CDT documented as of this encounter Care Teams Arbitrator Relationship Specialty Start Date End Date Nolvia Lebron APRN, MELIDA #[address] [address] PCP - General Advanced Practice Nurse 08/03/21 Cindy Morgan APRN, WELDER TOOL AND DIE Nurse Practitioner Advanced Practice Nurse 04/18/16 Juan M Hickey MD General Surgery 10/25/16 06/09/24 Iker Cedillo DO Gastroenterology 11/07/16 06/09/24 Barbara Lamar MD Obstetrics & Gynecology 05/15/20 Prema Marcelo APRN, WELDER TOOL AND DIE #2 [place] [address] Nurse Practitioner Advanced Practice Nurse 08/10/22 Zina Lugo APRN, WELDER TOOL AND DIE #2 [facility] [address] [place] [address] Nurse Practitioner Cardiology 12/27/23 01/09/25 documented as of this encounter
--- OUTSIDE RECORDS SUMMARY | 2025-03-09 09:21 | XMS_ITS | Encounter Summary ---
Author Organization [facility] Address [address] [facility] [place] [address] Phone Care Team Providers Care Aircraft Engineer Name Role Phone Barbara Lamar MD Unavailable Unavail able Nolvia Lebron APRN, PRESS TENDER STAR SIGNAL Primary Care Provid er Prema Marcelo APRN, PRESS TENDER STAR SIGNAL Unavailable Zina Lugo PRODUCT DEVELOPMENT SCIENTIST, PRESS TENDER STAR SIGNAL Unavailable [phone] Reason for Visit * Reason Comments Medication Refill Encounter Details Date Type Department Care Team (Late st Contact Info) Description 10/10/2024 Refill [facility] #2 [place] [phone] Prema Marcelo APRN, PRESS TENDER STAR SIGNAL #2 [place] [address] Medication Refill Social History Tobacco Use Types Packs/Day Years Used Date Smoking Tobacco: Former Cigarettes 0.3 45 Smokeless Tobacco: Never Comments:Quit 3 days ago Alcohol Use Standard Drinks/Week Comments Yes 0 (1 standard drink = 0.6 oz pur e alcohol) 1-2x a year [facility] Utilities Answer Date Recorded In the past 12 months has [employer] gas, oil, or water company threatened to [...] often do you attend chur ch or hinduism services? More than 4 times per year 11/21/2023 Do you belong to any clubs o r organizations such as rastafarian groups, unions, fraternal or athletic groups, or [...] Score - Questions 1-9 9 08/0 08/2022 [facility] - Occupational [...] Telephone Encounter - Emerita Thomas RN - 10/10/2024 10:52 AM CDT Medication refilled and signed per [facility] chronic medication standing order for pediatric and adult patients. documented in this encounter Plan of Treatment Upcoming Encounters Date Type Department Care Team (Late st Contact Info) Description 03/10/2025 4:00 PM CDT [facility] 1 [facility] [place] [address] Nolvia Lebron APRN, PRESS TENDER STAR SIGNAL #[address] [address] Discharge Disposition: Discharged to home or Selfcare 03/10/2025 4:45 PM CDT Appointment [facility] Mammography 1 [place] [address] Nolvia Lebron APRN, PRESS TENDER STAR SIGNAL #2 [facility] [address] [place] [address] Discharge Disposition: Discharged to home or Selfcare documented as of this encounter Visit Diagnoses Not on filedocumented in this encounter Additional Health Concerns Assessment Noted Time PHQ-9 Depression Total Score: 9 02/02/20 23 3:00 PM CDT documented as of this encounter Care Teams Aircraft Engineer Relationship Specialty Start Date End Date Nolvia Lebron APRN, PRESS TENDER STAR SIGNAL #[address] [phone] PCP - General Advanced Practice Nurse 08/03/21 Barbara Lamar MD Obstetrics & Gynecology 05/15/20 Prema Marcelo APRN, PRESS TENDER STAR SIGNAL #2 [place] [address] Nurse Practitioner Advanced Practice Nurse 08/10/22 Zina Lugo APRN, PRESS TENDER STAR SIGNAL #2 [facility] [address] [place] [address] Nurse Practitioner Cardiology 12/27/23 01/09/25 documented as of this encounter
--- OUTSIDE RECORDS SUMMARY | 2025-03-09 09:21 | XMS_ITS | Encounter Summary ---
Author Organization [facility] Address [address] [place] [place] [address] Phone Care Team Providers Care Software Support Analyst Name Role Phone Barbara Lamar MD Unavailable Unavail able Nolvia Lebron APRN, TOW BAR DRIVER Primary Care Provid er Prema Marcelo APRN, TOW BAR DRIVER Unavailable Zina Lugo APRN, TOW BAR DRIVER Unavailable [phone] Reason for Visit * Reason Comments Medication Refill Encounter Details Date Type Department Care Team (Late st Contact Info) Description 10/21/2024 Refill [facility] - Family Medicine [facility] #2 [place] [address] Nolvia Lebron APRN, TOW BAR DRIVER #[address] [address] Medication Refill Social History Tobacco Use Types Packs/Day Years Used Date Smoking Tobacco: Former Cigarettes 0.3 45 Smokeless Tobacco: Never Comments:Quit 3 days ago Alcohol Use Standard Drinks/Week Comments Yes 0 (1 standard drink = 0.6 oz pur e alcohol) 1-2x a year [facility] Utilities Answer Date Recorded In the past 12 months has [employer], oil, or judge[employer]me threatened to shut off services in your [...] often do you attend chur ch or taoism services? More than 4 times per year 11/21/2023 Do you belong to any clubs o r organizations such as moravian groups, unions, fraternal or athletic groups, or [...] Score - Questions 1-9 9 08/0 08/2022 [facility] - Occupational [...] place to sleep or slept in a fpc (including now)? No 11/21/2023 Sexually Active Control [...] encounter Miscellaneous Notes * Telephone Encounter - Crystal Daley MA - 10/23/2024 3:45 PM CDT Tried contacting [facility], the number is not a working number. * Telephone Encounter - Jamilah Chavez CMA - 10/22/2024 4:47 PM CDT Tried to call patient x2 and line was busy * Telephone Encounter - Chiqui Urrutia RN - 10/22/2024 10:09 AM CDT Nolvia Lebron APRN, TOW BAR DRIVER to [place] [facility] Pool (Selected Message) 10/22/24 10:03 AM Needs OV * Telephone Encounter - Ivonne Crockett RN - 10/21/2024 11:59 AM CDT Medication failed the protocol, provider to review and approve the medication order if appropriate. Requested Prescriptions Pending Prescriptions Disp Refills mirtazapine (REMERON) 15 MG Tablet [Pharmacy Med Name: Mirtazapine 15 MG Oral Tablet] 90 Tablet 0 Sig: Take 1 tablet by mouth nightly Alpha-2 Receptor Antagonists (6 Month Refill Only) Protocol Failed - 10/21/2024 11:59 AM Failed - Visit with relevant provider in past 6 months or upcoming 90 days Recent Visits No visits were found meeting these conditions. Showing recent visits within past 182 days and meeting all other requirements Future Appointments No visits were found meeting these conditions. Showing future appointments within next 90 days and meeting all other requirements Failed - Has an encounter in the past 6 months with a depression or anxiety visit diagnosis Passed - Patient has established therapy with Alpha-2 Receptor Antagonists for at least 6 months documented in this encounter Plan of Treatment Upcoming Encounters Date Type Department Care Team (Late st Contact Info) Description 03/10/2025 4:00 PM CDT [facility] [place] [phone] Nolvia Lebron APRN, TOW BAR DRIVER #[address] [address] Discharge Disposition: Discharged to home or Selfcare 03/10/2025 4:45 PM CDT [facility] [place] [address] Nolvia Lebron APRN, TOW BAR DRIVER #[address] [address] Discharge Disposition: Discharged to home or Selfcare documented as of this encounter Visit Diagnoses Not on filedocumented in this encounter Additional Health Concerns Assessment Noted Time PHQ-9 Depression Total Score: 9 02/02/20 23 3:00 PM CDT documented as of this encounter Care Teams Software Support Analyst Relationship Specialty Start Date End Date Nolvia Lebron APRN, TOW BAR DRIVER #[address] [facility] [address] [place] [address] PCP - General Advanced Practice Nurse 08/03/21 Barbara Lamar MD Obstetrics & Gynecology 05/15/20 Prema Marcelo APRN, TOW BAR DRIVER #[address] [place] [address] Nurse Practitioner Advanced Practice Nurse 08/10/22 Zina Lugo APRN, TOW BAR DRIVER #2 [facility], [address] [place] [address] Nurse Practitioner Cardiology 12/27/23 01/09/25 documented as of this encounter
--- OUTSIDE RECORDS SUMMARY | 2025-03-09 09:21 | XMS_ITS | Encounter Summary ---
Author Organization [facility] Address [address] [facility] [place] [address] Phone Care Team Providers Care Compensation Specialist Name Role Phone Cindy Morgan APRN, CLINICAL PROGRAM DIRECTOR Unavailable Juan M Hickey MD Unavailable [phone] Iker Cedillo DO Unavailable [phone] Barbara Lamar MD Unavailable Unavail able Nolvia Lebron APRN, CLINICAL PROGRAM DIRECTOR Primary Care Provid er Prema Marcelo APRN, CLINICAL PROGRAM DIRECTOR Unavailable Zina Lugo APRN, CLINICAL PROGRAM DIRECTOR Unavailable [phone]- [phone] Reason for Visit * Reason Comments Medication Refill Encounter Details Date Type Department Care Team (Late st Contact Info) Description 12/27/2021 [facility]ill [facility] - [place] #2 [place] [address] Nolvia Lebron APRN, CLINICAL PROGRAM DIRECTOR #[address] [address] Medication Refill Social History Tobacco [...] suspected to have Coronavirus/COVID-19? No / Unsure 12/07/2021 1:10 PM CDT documented as of this encounter Miscellaneous Notes * Telephone Encounter - Chiqui Urrutia RN - 12/28/2021 2:13 PM CDT Medication failed the protocol, provider to review and approve the medication order if appropriate. Requested Prescriptions Pending Prescriptions Disp Refills mirtazapine (REMERON) 15 MG Tablet [Pharmacy Med Name: Mirtazapine 15 MG Oral Tablet] 90 Tablet 3 Sig: Take 1 tablet by mouth nightly Alpha-2 Receptor Antagonists (6 Month Refill Only) Protocol Failed - 12/27/2021 2:25 PM Failed - Has an encounter in the past 6 months with a depression or anxiety visit diagnosis Passed - Visit with relevant provider in past 6 months or upcoming 90 days Recent Visits Date Type Provider Dept 12/01/21 Office Visit Nolvia Lebron APRN, [facility] 10/29/21 Office Visit Tia Mason, [facility] [place] 08/03/21 Telemedicine Nolvia Lebron APRN, [facility] 07/26/21 Telemedicine Nolvia Lebron APRN, [facility] 07/15/21 Office Visit Nolvia Lebron APRN, [facility] [place] Showing recent visits within past 182 days and meeting all other requirements Future Appointments No visits were found meeting these conditions. Showing future appointments within next 90 days and meeting all other requirements Passed - Patient has established therapy with Alpha-2 Receptor Antagonists for at least 6 months tiZANidine (ZANAFLEX) 2 MG Tablet [Pharmacy Med Name: tiZANidine HCl 2 MG Oral Tablet] 30 Tablet Sig: TAKE 2 TABLETS BY MOUTH THREE TIMES DAILY NEEDED FOR MUSCLE SPASM Not Delegated - Muscle Relaxants Protocol Failed - 12/27/2021 2:25 PM Failed - This refill cannot be delegated Passed - Visit with relevant provider in past 12 months or upcoming 90 days Recent Visits Date Type Provider Dept 12/01/21 Office Visit Nolvia Lebron APRN, CLINICAL PROGRAM DIRECTOR [facility] [place] 10/29/21 Office Visit Tia Mason, PAC [facility] 08/03/21 Telemedicine Nolvia Lebron APRN, CLINICAL PROGRAM DIRECTOR [facility] [place] 07/26/21 Telemedicine Nolvia Lebron APRN, CLINICAL PROGRAM DIRECTOR [facility] [place] 07/15/21 Office Visit Nolvia Lebron APRN, CLINICAL PROGRAM DIRECTOR [facility] [place] 06/04/21 Office Visit Nolvia Lebron APRN, CLINICAL PROGRAM DIRECTOR [facility] [place] 05/17/21 Office Visit Nolvia Lebron APRN, CLINICAL PROGRAM DIRECTOR [facility] [place] 04/28/21 Office Visit Tia Mason, [facility] 04/19/21 Office Visit Nolvia Lebron APRN, CLINICAL PROGRAM DIRECTOR [facility] [place] 03/30/21 Office Visit Nolvia Lebron APRN, CLINICAL PROGRAM DIRECTOR [facility] [place] Showing recent visits within past 365 days and meeting all other requirements Future Appointments No visits were found meeting these conditions. Showing future appointments within next 90 days and meeting all other requirements Passed - ALT less than 90 and AST less than 55 on record in past 12 months SGOT (AST) Date Value Ref Range Status 12/01/2021 14 <=32 U/L Final SGPT (ALT) Date Value Ref Range Status 12/01/2021 11 <=41 U/L Final albuterol 108 (90 Base) MCG/ACT Aerosol Solution [Pharmacy Med Name: Albuterol Sulfate HFA 108 (90 Base) MCG/ACT Inhalation Aerosol Solution] 18 g 3 Sig: INHALE 1 TO 2 PUFFS BY MOUTH EVERY 4 HOURS NEEDED FOR WHEEZING OR COUGH Short Acting Inhaled Beta-Agonists Protocol Passed - 12/27/2021 2:25 PM Passed - Visit with relevant provider in past 12 months or upcoming 90 days Recent Visits Date Type Provider Dept 12/01/21 Office Visit Nolvia Lebron APRN, [facility] 10/29/21 Office Visit Tia Mason, PAC [facility] [place] 08/03/21 Telemedicine Nolvia Lebron APRN, CLINICAL PROGRAM DIRECTOR [facility] [place] 07/26/21 Telemedicine Nolvia Lebron APRN, CLINICAL PROGRAM DIRECTOR [facility] [place] 07/15/21 Office Visit Nolvia Lebron APRN, CLINICAL PROGRAM DIRECTOR [facility] [place] 06/04/21 Office Visit Nolvia Lebron APRN, CLINICAL PROGRAM DIRECTOR [facility] [place] 05/17/21 Office Visit Nolvia Lebron APRN, [facility] 04/28/21 Office Visit Tia Mason, PAC [facility] 04/19/21 Office Visit Nolvia Lebron APRN, CLINICAL PROGRAM DIRECTOR [facility] 03/30/21 Office Visit Nolvia Lebron LACING STRING CUTTER, CLINICAL PROGRAM DIRECTOR [facility] Showing recent visits within past 365 days and meeting all other requirements Future Appointments No visits were found meeting these conditions. Showing future appointments within next 90 days and meeting all other requirements documented in this encounter Plan of Treatment Upcoming Encounters Date Type Department Care Team (Late st Contact Info) Description 03/10/2025 4:00 PM CDT [facility] 1 [place] [address] Nolvia Lebron APRN, CLINICAL PROGRAM DIRECTOR #[address] [address] Discharge Disposition: Discharged to home or Selfcare 03/10/2025 4:45 PM CDT [facility] 1 [place] [address] Nolvia Lebron APRN, CLINICAL PROGRAM DIRECTOR #2 [facility] [address] [place] [address] Discharge Disposition: Discharged to home or Selfcare documented as of this encounter Visit Diagnoses Diagnosis Back strain, initial encounter Chronic obstructive pulmonary disease, unspecified COPD type (HCC) documented in this encounter Additional Health Concerns Assessment Noted Time PHQ-9 Depression Total Score: 0 12/02/19 22 8:06 AM CDT documented as of this encounter Care Teams Compensation Specialist Relationship Specialty Start Date End Date Nolvia Lebron APRN, CLINICAL PROGRAM DIRECTOR #2 [facility] [address] [place] [address] PCP - General Advanced Practice Nurse 08/03/21 Cindy Morgan APRN, CLINICAL PROGRAM DIRECTOR Nurse Practitioner Advanced Practice Nurse 04/18/16 Juan M Hickey MD General Surgery 10/25/16 06/09/24 Iker Cedillo DO Gastroenterology 11/07/16 06/09/24 Barbara Lamar MD Obstetrics & Gynecology 05/15/20 Prema Marcelo APRN, CLINICAL PROGRAM DIRECTOR #[address] [place] [address] Nurse Practitioner Advanced Practice Nurse 08/10/22 Zina Lugo APRN, CLINICAL PROGRAM DIRECTOR #2 [facility] [address] [place] [address] Nurse Practitioner Cardiology 12/27/23 01/09/25 documented as of this encounter
--- OUTSIDE RECORDS SUMMARY | 2025-03-09 09:21 | XMS_ITS | Encounter Summary ---
Author Organization [facility] Address [address] [facility] [place] [address] Phone Care Team Providers Care Fishing Instructor Name Role Phone Cindy Morgan APRN, SENIOR SOFTWARE SYSTEMS ENGINEER Unavailable Juan M Hickey MD Unavailable [phone] Iker Cedillo DO Unavailable [phone] Barbara Lamar MD Unavailable Unavail able Nolvia Lebron APRN, SENIOR SOFTWARE SYSTEMS ENGINEER Primary Care Provid er Prema Mareclo APRN, SENIOR SOFTWARE SYSTEMS ENGINEER Unavailable Zina Lugo APRN, SENIOR SOFTWARE SYSTEMS ENGINEER Unavailable [phone] Reason for Visit * Reason Comments Medication Refill Encounter Details Date Type Department Care Team (Late st Contact Info) Description 12/02/2022 [facility]ill [facility] - [place] #2 [place] [address] Nolvia Lebron APRN, SENIOR SOFTWARE SYSTEMS ENGINEER #[address] [address] Medication Refill Social History Tobacco [...] suspected to have Coronavirus/COVID-19? No / Unsure 11/18/2022 11:59 AM CDT documented as of this encounter Miscellaneous Notes * Telephone Encounter - Chiqui Urrutia RN - 12/02/2022 2:41 PM CDT Name from pharmacy: Ondansetron HCl 4 MG Oral Tablet Will file in chart as: ondansetron (ZOFRAN) 4 MG Tablet The original prescription was discontinued on 09/26/2022 by Nolvia Lebron APRN, CNP documented in this encounter Plan of Treatment Upcoming Encounters Date Type Department Care Team (Late st Contact Info) Description 03/10/2025 4:00 PM CDT [facility] 1 [place] [address] Nolvia Lebron APRN, SENIOR SOFTWARE SYSTEMS ENGINEER #[address] [phone] Discharge Disposition: Discharged to home or Selfcare 03/10/2025 4:45 PM CDT [facility] 1 [place] [phone] Nolvia Lebron APRN, SENIOR SOFTWARE SYSTEMS ENGINEER #[address] [address] Discharge Disposition: Discharged to home or Selfcare documented as of this encounter Visit Diagnoses Diagnosis Intractable vomiting with nausea documented in this encounter Additional Health Concerns Assessment Noted Time PHQ-9 Depression Total Score: 0 12/02/19 8:06 AM CDT documented as of this encounter Care Teams Fishing Instructor Relationship Specialty Start Date End Date Nolvia Lebron APRN, SENIOR SOFTWARE SYSTEMS ENGINEER #2 [facility] [address] [place] [address] PCP - General Advanced Practice Nurse 08/03/21 Cindy Morgan APRN, SENIOR SOFTWARE SYSTEMS ENGINEER Nurse Practitioner Advanced Practice Nurse 04/18/16 Juan M Hickey MD General Surgery 10/25/16 06/09/24 Iker Cedillo DO Gastroenterology 11/07/16 06/09/24 Barbara Lamar MD Obstetrics & Gynecology 05/15/20 Prema Marcelo APRN, SENIOR SOFTWARE SYSTEMS ENGINEER #2 [place] [address] Nurse Practitioner Advanced Practice Nurse 08/10/22 Zina Lugo APRN, SENIOR SOFTWARE SYSTEMS ENGINEER #2 [facility] [address] [place] [address] Nurse Practitioner Cardiology 12/27/23 01/09/25 documented as of this encounter
--- OUTSIDE RECORDS SUMMARY | 2025-03-09 09:21 | XMS_ITS | Encounter Summary ---
Author Organization [facility] Address [address] [facility] [place] [address] Phone Care Team Providers Care Teller Name Role Phone Cindy Morgan APRN, VENDOR QUALITY SUPERVISOR Unavailable Juan M Hickey MD Unavailable [phone] Iker Cedillo DO Unavailable [phone] Barbara Lamar MD Unavailable Unavail able Nolvia Lebron FULL TIME PARAMEDIC, VENDOR QUALITY SUPERVISOR Primary Care Provid er Prema Marcelo APRN, VENDOR QUALITY SUPERVISOR Unavailable Zina Lugo FULL TIME PARAMEDIC, VENDOR QUALITY SUPERVISOR Unavailable [phone]- [phone] Reason for Visit * Reason Comments Medication Refill Encounter Details Date Type Department Care Team (Late st Contact Info) Description 08/09/2021 Refill [facility] - [place] #2 [place] [phone] Tia Mason PAC #2 [place] [address] Medication Refill Social History Tobacco Use Types [...] suspected to have Coronavirus / COVID-19? Yes 08/03/2021 4:12 PM SET DESIGNER documented as of this encounter Miscellaneous Notes * Telephone Encounter - Chiqui Urrutia RN - 08/10/2021 12:16 PM CST Medication failed the protocol, provider to review and approve the medication order if appropriate. Requested Prescriptions Pending Prescriptions Disp Refills mirtazapine (REMERON) 15 MG Tablet [Pharmacy Med Name: Mirtazapine 15 MG Oral Tablet] 30 Tablet 2 Sig: Take 1 tablet by mouth nightly Alpha-2 Receptor Antagonists (6 Month Refill Only) Protocol Failed - 08/09/2021 1:56 PM Failed - Has an encounter in the past 6 months with a depression or anxiety visit diagnosis Passed - Visit with relevant provider in past 6 months or upcoming 90 days Recent Visits Date Type Provider Dept 08/03/21 Telemedicine Nolvia Lebron APRN, MELIDA [facility] [place] 07/26/21 Telemedicine Nolvia Lebron APRN, MELIDA [facility] 07/15/21 Office Visit Nolvia Lebron APRN, MELIDA [facility] [place] 06/04/21 Office Visit Nolvia Lebron APRN, MELIDA [facility] 05/17/21 Office Visit Nolvia Lebron APRN, MELIDA [facility] 04/28/21 Office Visit Tia Mason PAC [facility] 04/19/21 Office Visit Nolvia Lebron APRN, MELIDA [facility] 03/30/21 Office Visit Nolvia Lebron APRN, CNP [facility] Showing recent visits within past 182 days and meeting all other requirements Future Appointments No visits were found meeting these conditions. Showing future appointments within next 90 days and meeting all other requirements Passed - Patient has established therapy with Alpha-2 Receptor Antagonists for at least 6 months DESIGNER documented in this encounter Plan of Treatment Upcoming Encounters Date Type Department Care Team (Late st Contact Info) Description 03/10/2025 4:00 PM CDT Appointment [facility] Mammography 1 [place] [address] Nolvia Lebron APRN, MELIDA #[address] [address] Discharge Disposition: Discharged to home or Selfcare 03/10/2025 4:45 PM CDT Appointment [facility] Mammography 1 [place] [address] Nolvia Lebron APRN, CNP #[address] [place] [address] Discharge Disposition: Discharged to home or Selfcare documented as of this encounter Visit Diagnoses Not on filedocumented in this encounter Additional Health Concerns Infection Onset Date Last Indicated Resolved Time COVID - 19 Confirmed 07/26/2021 07/26/2021 022 12:16 AM SET DESIGNER Assessment Noted Time PHQ-9 Depression Total Score: 0 06/04/20 21 8:55 AM SET DESIGNER documented as of this encounter Care Teams Teller Relationship Specialty Start Date End Date Nolvia Lebron APRN, CNP #[address] [address] PCP - General Advanced Practice Nurse 08/03/21 Cindy Morgan, FULL TIME PARAMEDIC, VENDOR QUALITY SUPERVISOR Nurse Practitioner Advanced Practice Nurse 04/18/16 Juan M Hickey MD General Surgery 10/25/16 06/09/24 Iker Cedillo DO Gastroenterology 11/07/16 06/09/24 Barbara Lamar MD Obstetrics & Gynecology 05/15/20 Prema Marcelo APRN, VENDOR QUALITY SUPERVISOR #2 [place] [address] Nurse Practitioner Advanced Practice Nurse 08/10/22 Zina Lugo FULL TIME PARAMEDIC, VENDOR QUALITY SUPERVISOR #2 [facility] [address] [place] [address] Nurse Practitioner Cardiology 12/27/23 01/09/25 documented as of this encounter
--- OUTSIDE RECORDS SUMMARY | 2025-03-09 09:21 | XMS_ITS | Encounter Summary ---
Author Organization [facility] Address [address] [place] [address] Phone Care Team Providers Care Business Analytics Faculty Member Name Role Phone Barbara Lamar MD Unavailable Unavail able Nolvia Lebron APRN, CNP Primary Care Provid er Prema Marcelo APRN, CNP Unavailable Reason for Referral * Radiology Services (Routine) - Authorized Specialty Diagnoses / Procedures Referred By Luis dodsno Referred To Contact Radiology Diagnoses Visit for screening mammogram Procedures BETH SCREENING BILATERAL DIGITAL W CAD W ERMA BETH SCREENING BILATERAL DIGITAL W CAD W ERMA Nolvia Lebron APRN, CNP #[address] [address] Phone: tel: fax: Referral ID Status Reason Start Date Expiration Date V isits Requested Visits Authorized [id number] Authorized 02/24/2025 1 1 Encounter Details Date Type Department Care Team (Late st Contact Info) Description 02/24/2025 Telephone [facility] [address] [facility] [place] [address] Nolvia Lebron APRN, CNP #[address] [place] [address] Social History Tobacco Use Types Packs/Day Years Used Date Smoking Tobacco: Former Cigarettes 0.3 45 Smokeless Tobacco: Never Comments:Quit 3 days ago Alcohol Use Standard Drinks/Week Comments Yes 0 (1 standard drink = 0.6 oz pur e alcohol) 1-2x a year [facility] Utilities Answer Date Recorded In the past 12 months has [employer], [employer], oil, or water [employer] threatened to shut off services in your [...] often do you attend chur ch or mosque services? More than 4 times per year 11/21/2023 Do you belong to any clubs o r organizations such as christianity groups, unions, fraternal or athletic groups, or [...] Total Score - Questions 1-9 0 11/01 [facility]ational Stress Questionnaire Answer Date [...] place to sleep or slept in a intermediate (including now)? No 11/21/2023 AUDIT-C Answer Date [...] 4:00 PM CDT Appointment [facility] [address] [place] [address] Nolvia Lebron APRN, GATE ATTENDANT #[address] [address] Discharge Disposition: Discharged to home or Selfcare 03/10/2025 4:45 PM CDT Appointment [facility] Mammography 1 [place] [address] Nolvia Lebron APRN, GATE ATTENDANT #[address] [address] Discharge Disposition: Discharged to home or Selfcare Scheduled Orders Name Type Priority Associated Diagnoses Orde r Schedule BETH SCREENING BILATERAL DIGITAL W CAD W ERMA Imaging Routine Visit for screening mammogram Expected: 02/24/2025, Expires: 02/24/2026 documented as of this encounter Visit Diagnoses Diagnosis Visit for screening mammogram- Primary Other screening mammogram documented in this encounter Additional Health Concerns Assessment Noted Time PHQ-9 Depression Total Score: 0 11/22/19 25 2:59 PM CDT documented as of this encounter Care Teams Business Analytics Faculty Member Relationship Specialty Start Date End Date Nolvia Lebron APRN, MELIDA #[address] [address] PCP - General Advanced Practice Nurse 08/03/21 Barbara Lamar MD Obstetrics & Gynecology 05/15/20 Prema Marcelo APRN, GATE ATTENDANT #2 [place] [address] Nurse Practitioner Advanced Practice Nurse 08/10/22 documented as of this encounter
--- OUTSIDE RECORDS SUMMARY | 2025-03-09 09:21 | XMS_ITS | Encounter Summary ---
Author Organization [facility] Address [address] [place] [place] [address] Phone Care Team Providers Care Trim Operator Name Role Phone Cindy Morgan APRN, WHISKEY REGAUGER Unavailable Juan M Hickey MD Unavailable [phone] Iker Cedillo DO Unavailable [phone] Barbara Lamar MD Unavailable Unavail able Nolvia Lebron GROUNDS MAINTENANCE WORKER, WHISKEY REGAUGER Primary Care Provid er Prema Marcelo APRN, WHISKEY REGAUGER Unavailable Zina Lugo GROUNDS MAINTENANCE WORKER, WHISKEY REGAUGER Unavailable [phone]- [phone] Reason for Visit * Reason Comments Medication Refill Encounter Details Date Type Department Care Team (Late st Contact Info) Description 06/21/2022 Refill [facility] - [place] [address] [place] [id number] Abby Corado December, [address] [place] [address] Medication Refill Social History Tobacco Use Types Packs/Day Years Used Date Smoking Tobacco: Former Cigarettes 0.3 45 Smokeless Tobacco: Never Comments:Quit 3 days ago Alcohol Use Standard Drinks/Week Comments Yes 0 (1 standard drink = 0.6 oz pur e alcohol) 1-2x a year PHQ-2 Answer Date Recorded Total Score - Questions 1-9 0 06/0 07/2021 Sexually Active Control Partners Comments Not [...] suspected to have Coronavirus/COVID-19? No / Unsure 06/07/2022 1:39 PM FISHER SCALLOP documented as of this encounter Miscellaneous Notes * Telephone Encounter - Emerita Thomas RN - 06/21/2022 4:52 PM [facility] SCALL[facility] Pharmacy requesting refill of: Requested Prescriptions Pending Prescriptions Disp Refills ??? pantoprazole (PROTONIX) 40 MG Tablet Delayed Response [Pharmacy Med Name: Pantoprazole Sodium 40 MG Oral Tablet Delayed Release] 90 Tablet 0 Sig: Take 1 tablet by mouth once daily Last fill: 11/26/2021 with Abby Corado PAC Patients last OV with GI: 01/19/2022 Next Office Visit with GI: 1 year follow up recall placed. Pantoprazole order pended, please review and approve. ER SCALLOP documented in this encounter Plan of Treatment Upcoming Encounters Date Type Department Care Team (Late st Contact Info) Description 03/10/2025 4:00 PM CDT [facility] [address] [place] [phone] Nolvia Lebron APRN, WHISKEY REGAUGER [address] [phone] Discharge Disposition: Discharged to home or Selfcare 03/10/2025 4:45 PM CDT [facility] [address] [place] [address] Nolvia Lebron APRN, WHISKEY REGAUGER #2 [facility] [address] [place] [phone] Discharge Disposition: Discharged to home or Selfcare documented as of this encounter Visit Diagnoses Diagnosis Gastroesophageal reflux disease, unspecified whether esophagitis present documented in this encounter Additional Health Concerns Assessment Noted Time PHQ-9 Depression Total Score: 0 12/02/19 22 8:06 AM CDT documented as of this encounter Care Teams Trim Operator Relationship Specialty Start Date End Date Nolvia Lebron APRN, WHISKEY REGAUGER #2 [facility] [address] [place] [phone] PCP - General Advanced Practice Nurse 08/03/21 Cindy Morgan APRN, WHISKEY REGAUGER Nurse Practitioner Advanced Practice Nurse 04/18/16 Juan M Hickey MD General Surgery 10/25/16 06/09/24 Iker Cedillo DO Gastroenterology 11/07/16 06/09/24 Barbara Lamar MD Obstetrics & Gynecology 05/15/20 Prema Marcelo APRN, WHISKEY REGAUGER [address] [place] [address] Nurse Practitioner Advanced Practice Nurse 08/10/22 Zina Lugo APRN, WHISKEY REGAUGER #2 [facility] [address] [place] [address] Nurse Practitioner Cardiology 12/27/23 01/09/25 documented as of this encounter
--- OUTSIDE RECORDS SUMMARY | 2025-03-09 09:21 | XMS_ITS | Encounter Summary ---
Author Organization [facility] Address [address] [facility] [place] [address] Phone Care Team Providers Care Orthopedic Nurse Practitioner Name Role Phone Cindy Morgan APRN, MANAGER CATH LAB Unavailable Juan M Hickey MD Unavailable [phone] Iker Cedillo DO Unavailable [phone] Barbara Lamar MD Unavailable Unavail able Nolvia Lebron ASSIGNMENT CLERK, MANAGER CATH LAB Primary Care Provid er Prema Marcelo APRN, MANAGER CATH LAB Unavailable Zina Lugo APRN, MANAGER CATH LAB Unavailable [phone] Reason for Visit * Reason Comments Medication Refill Encounter Details Date Type Department Care Team (Late st Contact Info) Description 05/24/2024 [facility]ill [facility] - [place] #2 [place] [phone] Prema Marcelo APRN, MANAGER CATH LAB [address] [place] [address] Medication Refill Social History Tobacco Use Types Packs/Day Years Used Date Smoking Tobacco: Former Cigarettes 0.3 45 Smokeless Tobacco: Never Comments:Quit 3 days ago Alcohol Use Standard Drinks/Week Comments Yes 0 (1 standard drink = 0.6 oz pur e alcohol) 1-2x a year [facility] Utilities Answer Date Recorded In the past [...] often do you attend chur ch or methodist services? More than 4 times per year 11/21/2023 Do you belong to any clubs o r organizations such as oriental orthodox groups, unions, fraternal or athletic groups, or [...] Total Score - Questions 1-9 9 08/2022 [facility] - Occupational Stress [...] place to sleep or slept in a fdc (including now)? No 11/21/2023 Sexually Active Control [...] Telephone Encounter - Emerita Thomas RN - 05/27/2024 8:28 AM WELDER GUN Medication refilled and signed per [facility] chronic medication standing order for pediatric and adult patients. ER GUN documented in this encounter Plan of Treatment Upcoming Encounters Date Type Department Care Team (Late st Contact Info) Description 03/10/2025 4:00 PM CDT [facility] [address] [place] [address] Nolvia Lebron APRN, MANAGER CATH LAB #[address] [address] Discharge Disposition: Discharged to home or Selfcare 03/10/2025 4:45 PM CDT [facility] [address] [place] [phone] Nolvia Lebron APRN, MANAGER CATH LAB #[address] [phone] Discharge Disposition: Discharged to home or Selfcare documented as of this encounter Visit Diagnoses Not on filedocumented in this encounter Additional Health Concerns Assessment Noted Time PHQ-9 Depression Total Score: 9 02/02/20 23 3:00 PM CDT documented as of this encounter Care Teams Orthopedic Nurse Practitioner Relationship Specialty Start Date End Date Nolvia Lebron APRN, MANAGER CATH LAB #[address] [address] PCP - General Advanced Practice Nurse 08/03/21 Cindy Morgan APRN, MANAGER CATH LAB Nurse Practitioner Advanced Practice Nurse 04/18/16 Juan M Hickey MD General Surgery 10/25/16 06/09/24 Iker Cedillo DO Gastroenterology 11/07/16 06/09/24 Barbara Lamar MD Obstetrics & Gynecology 05/15/20 Prema Marcelo APRN, MANAGER CATH LAB #[address] [place] [address] Nurse Practitioner Advanced Practice Nurse 08/10/22 Zina Lugo APRN, MANAGER CATH LAB #2 [facility], [address] [place] [address] Nurse Practitioner Cardiology 12/27/23 01/09/25 documented as of this encounter
--- OUTSIDE RECORDS SUMMARY | 2025-03-09 09:21 | XMS_ITS | Encounter Summary ---
Author Organization [facility] Address [address] [facility] [place] [address] Phone Care Team Providers Care Window Framer Name Role Phone Cindy Morgan APRN, BOTTLE FILLER Unavailable Juan M Hickey MD Unavailable [phone] Iker Cedillo DO Unavailable [phone] Barbara Lamar MD Unavailable Unavail able Dawson Rdud MD Primary Care Provider Nolvia Lebron APRN, BOTTLE FILLER Primary Care Provid er Prema Marcelo APRN, BOTTLE FILLER Unavailable Zina Lugo CARBON PAPER MACHINE OPERATOR, BOTTLE FILLER Unavailable [phone] Reason for Visit * Reason Comments Medication Refill Encounter Details Date Type Department Care Team (Late st Contact Info) Description 10/07/2020 Refill [facility] - [facility] Medicine - [place] #[address] [place] [address] Nolvia Lebron APRN, BOTTLE FILLER #[address] [address] Medication Refill Social History Tobacco [...] have Coronavirus / COVID-19? No / Unsure 09/29/2020 1:11 PM CDT documented as of this encounter Miscellaneous Notes * Telephone Encounter - Chiqui rUrutia RN - 10/08/2020 11:11 AM CDT Medication failed the protocol, provider to review and approve the medication order if appropriate. Requested Prescriptions Pending Prescriptions Disp Refills cyclobenzaprine (FLEXERIL) 10 MG Tablet [Pharmacy Med Name: Cyclobenzaprine HCl 10 MG Oral Tablet] 60 Tablet 0 Sig: Take 1 tablet by mouth three times daily as needed for muscle spasm Not Delegated - Analgesics: Muscle Relaxants Failed - 10/07/2020 12:25 PM Failed - This refill cannot be delegated Passed - Valid encounter within last 6 months Past Office Visits Recent Outpatient Visits 1 week ago Fibromyalgia [facility] - Nolvia Carter APN, BOTTLE FILLER 1 week ago Fibromyalgia [facility] - Nolvia Carter APN, BOTTLE FILLER 4 months ago Right-sided ischial pain [facility] - Dawson Dickerson MD 4 months ago Pulmonary emphysema, unspecified emphysema type (HCC) [facility] Dawson Ron MD Upcoming Appointments Future Appointments In 2 weeks Nolvia Lebron APN, BOTTLE FILLER [facility] BRISSA Johnson BOWLING ALLEY MECHANIC - Recent and Past Visits Recent Visits Date Type Provider Dept 09/29/20 Office Visit Nolvia Lebron APN, CNP [facility] 09/25/20 Office Visit Nolvia Lebron APN, CNP [facility] 05/26/20 Office Visit Dawson Rudd MD [facility] 05/15/20 Office Visit Dawson Rudd MD [facility] Alex Showing recent visits within past 460 days with a meds authorizing provider and meeting all other requirements Future Appointments Date Type Provider Dept 10/27/20 Appointment Nolvia Lebron APN, MELIDA [facility] Johnson Showing future appointments within next 90 days with a meds authorizing provider and meeting all other requirements documented in this encounter Plan of Treatment Upcoming Encounters Date Type Department Care Team (Late st Contact Info) Description 03/10/2025 4:00 PM CD[facility] [address] [place] [address] Nolvia Lebron APRN, BOTTLE FILLER #[address] [address] Discharge Disposition: Discharged to home or Selfcare 03/10/2025 4:45 PM CDT [facility] [address] [place] [address] Nolvia Lebron APRN, BOTTLE FILLER #[address] [address] Discharge Disposition: Discharged to home or Selfcare documented as of this encounter Visit Diagnoses Diagnosis Fibromyalgia Mylagia and myositis, unspecified documented in this encounter Additional Health Concerns Infection Onset Date Last Indicated Resolved Time COVID - 19 07/26/2021 07/26/2021 07/27/2021 9:40 AM REVENUE CYCLE SPECIALIST COVID - 19 Confirmed 07/26/2021 07/26/2021 022 12:16 AM REVENUE CYCLE SPECIALIST Assessment Noted Time PHQ-9 Depression Total Score: 0 05/15/20 20 10:08 AM REVENUE CYCLE SPECIALIST documented as of this encounter Care Teams Window Framer Relationship Specialty Start Date End Date Dawson Rudd MD #2 [facility] [address] [place] [address] PCP - General Family Medicine 05/26/20 08/02/21 Nolvia Lebron APRN, BOTTLE FILLER #2 [facility] [address] [place] [address] PCP - General Advanced Practice Nurse 08/03/21 Cindy Morgan APRN, BOTTLE FILLER Nurse Practitioner Advanced Practice Nurse 04/18/16 Juan M Hickey MD General Surgery 10/25/16 06/09/24 Iker Cedillo DO Gastroenterology 11/07/16 06/09/24 Barbara Lamar MD Obstetrics & Gynecology 05/15/20 Prema Marcelo APRN, BOTTLE FILLER #[address] [place] [address] Nurse Practitioner Advanced Practice Nurse 08/10/22 Zina Lugo APRN, BOTTLE FILLER #2 [facility] [address] [place] [address] Nurse Practitioner Cardiology 12/27/23 01/09/25 documented as of this encounter
--- OUTSIDE RECORDS SUMMARY | 2025-03-09 09:21 | XMS_ITS | Clinical Summary ---
Author Organization [facility] Address [address], [address] [address] Phone Care Team Providers Care Well Blower Name Role Phone Barbara Lamar MD Unavailable Unavail able Nolvia Lebron APRN, ELECTRICAL ENGINEERING DESIGNER Primary Care Provid er Prema Marcelo APRN, ELECTRICAL ENGINEERING DESIGNER Unavailable Allergies Active Allergy Reactions Criticality Noted Date Comments Azithromycin Hives,Nausea High 12/25/2015 Diclofenac Hives,Other (see Comments) High 6 dizziness Diclofenac Epolamine Hives,Other (see Comments) High 12/25/2015 dizziness Prednisone Shortness of Breath High 05/12/2020 Medications HYDROcodone-carey taminophen (NORCO) 5-325 MG TabletIndicatio ns:Spinal stenosis of lumbar region, unspecified whether neurogenic claudication present Take 1 Tablet by mouth every 4 hours as needed for Moderate or more severe pain. 30 Tablet 01/25/20 22 Active ondansetron (ZOFRAN) 4 MG TabletIndicatio ns:Nausea TAKE 1 TABLET BY MOUTH EVERY 8 HOURS NEEDED FOR NAUSEA 15 Tablet 03/10/20 23 Active ipratropium-alb uterol (DUO-NEB) 0.5-2.5 (3) MG/3ML SolutionIndicat ions:COPD exacerbation (HCC) USE 1 AMPULE IN NEBULIZER EVERY 6 HOURS NEEDED FOR WHEEZING OR SHORTNESS OF BREATH 360 mL 07/10/19 24 Active Additional Information Patient not taking.Reported on 12/09/2024 SUMAtriptan (IMITREX) 100 MG Tablet TAKE 1 TABLET BY MOUTH ONCE DAILY NEEDED FOR MIGRAINE. MAY REPEAT DOSE IN 2 HOURS IF HEADACHE RECURS. 9 Tablet 10/11/19 25 Active Biotin 5 MG Capsule Take 1 Tablet by mouth. 03/07/20 24 Active Magnesium Bisglycinate (Mag Glycinate) 100 MG Tablet Take 1 Tablet by mouth. 02/23/20 24 Active fluticasone (FLONASE) 50 MCG/ACT Suspension 1 Archer by Nasal route daily. 11/30/19 25 Active traZODone (DESYREL) 50 MG TabletIndicatio ns:Generalized anxiety disorder,Psycho physiological insomnia Take 1 Tablet by mouth nightly. 30 Tablet 5 12/10/19 25 Active pantoprazole (PROTONIX) 40 MG Tablet Delayed Response Take 1 tablet by mouth once daily 90 Tablet 3 01/03/20 25 Active albuterol 108 (90 Base) MCG/ACT Aerosol SolutionIndicat ions:Chronic obstructive pulmonary disease, unspecified COPD type (HCC) INHALE 1 TO 2 PUFFS BY MOUTH EVERY 4 HOURS NEEDED FOR WHEEZING OR COUGH 18 g 02/22/20 25 Active albuterol 108 (90 Base) MCG/ACT Aerosol SolutionIndicat ions:Chronic obstructive pulmonary disease, unspecified COPD type (HCC) INHALE 1 TO 2 PUFFS BY MOUTH EVERY 4 HOURS NEEDED FOR WHEEZING OR COUGH 18 g 08/28/19 25 025 Discontinued Active Problems Problem Noted Date Diagnosed Date COPD exacerbation 08/10/2022 Rheumatoid arthritis, involv ing unspecified site, unspecified whether rheumatoid factor present 03/30/2021 Spinal stenosis of lumbar region 11/13/2020 Chronic right-sided low back pain with right-doris ed sciatica 11/13/2020 Fibromyalgia 11/13/2020 Radiculopathy, lumbosacral region 08/10/2020 Chronic tonsillitis 03/13/2018 Conductive hearing loss, external ear 03/13/2018 Acquired stenosis of both external ear canals Gastroparesis 01/17/2017 Constipation 12/25/2015 Hx of diverticulitis of colon 12/25/2015 Resolved Problems Problem Noted Date Diagnosed Date Resolved Date Tonsil stone 03/13/2018 01/27/2022 Impacted cerumen, bilateral 03/13/2018 01/27/2022 Diverticulitis 07/15/2017 01/27/2022 Dysphagia 12/25/2015 01/27/2022 Nausea and vomiting 12/25/2015 01/28/20 Weight loss 12/25/2015 01/27/2022 Epigastric pain 12/25/2015 01/27/2022 Gastroesophageal reflux disease 12/25/2015 01/27/2022 Encounters Date Type Department Care Team Description 03/08[facility] [place] [phone] Nolvia Lebron APRN, CNP Medication Refill 02/[facility] [address] [place] [address] [place] [address] Nolvia Lebron APRN, CNP 02/21/2025 [facility] [place] [phone] Nolvia Lebron APRN, CNP Medication Refill 01/06/20[facility] [address] [place] [address] Nolvia eLbron APRN, CNP Advice Only; Medication Management; Dizziness; muscle aches; Altered Mental Status; Ringing in Ear; Panic Attack 01/02/2025 [facility] [place] [phone] Prema Marcelo APRN, CNP Medication Refill 12/27/2024 Travel 12/23/2024 Results Follow-Up [facility] [address] [place] [address] Nolvia Lebron APRN, CNP CMP (COMPREHENSIVE METABOLIC PANEL), LIPID PANEL, THYROID STIMULATING HORMONE (TSH), Additional followed-up results: 5 12/23/2024 Travel 12/09/2024 3:45 PM CDT Office Visit [facility] - Family [facility] [address] [place] [phone] Nolvia Lebron APRN, MELIDA Generalized anxiety disorder (Primary Dx); Chronic pain of both shoulders; Chronic obstructive pulmonary disease, unspecified COPD type (HCC); Gastroesophageal reflux disease, unspecified whether esophagitis present; Current smoker; Asymptomatic menopausal state; Body mass index (BMI) 23.0-23.9, adult; Encounter for screening for cardiovascular disorders; Screening for osteoporosis; senior living (current) use of opiate analgesic; Encounter for screening mammogram for breast cancer; Psychophysiological insomnia; Diarrhea, unspecified type Discharge Disposition: Discharged to home or Selfcare 12/09/2024 Travel from Last 3 Months Immunizations Immunization Administration Dates Next Due Influenza Vaccine 05/12/2012 Influenza, Injectable, Quadrivalent 06/07/2018,1 Pneumococcal Vaccine Adult - 23 Valent 7,05/12/2012 TDAP Vaccine 12/28/2015 Family History Medical History Relation Name Comments No Known Problems Brother 1 No Known Problems Brother 2 Depression Father suicide Migraines Father Alzheimer's Disease Maternal Grandfather Chronic Obstructive Pulmonary Disease Maternal Grandmo ther Glaucoma Maternal Grandmother Rheumatoid Arthritis Maternal Grandmother Arthritis Mother Cancer Paternal Aunt 1 Cancer Paternal Aunt 2 Cancer Paternal Aunt 3 Cancer Paternal Grandfather Cancer Paternal Grandmother Diabetes Paternal Grandmother Colon Cancer Paternal Uncle 1 uncle Cancer Paternal Uncle 2 Cancer Paternal Uncle 3 Cancer Paternal Uncle 4 Cancer Paternal Uncle 5 Cancer Paternal Uncle 6 Relation Name Status Comments Brother 1 Alive Brother 2 Alive Father Maternal Grandfather Maternal Grandmother Mother Alive does no talk to mother Paternal Aunt 1 Paternal Aunt 2 Paternal Aunt 3 Paternal Grandfather Paternal Grandmother Paternal Uncle 1 Other Paternal Uncle 2 Paternal Uncle 3 Paternal Uncle 4 Paternal Uncle 5 Paternal Uncle 6 Social History Tobacco Use Types Packs/Day Years Used Date Smoking Tobacco: Former Cigarettes 0.3 45 Smokeless Tobacco: Never Comments:Quit 3 days ago Alcohol Use Standard Drinks/Week Comments Yes 0 (1 standard drink = 0.6 oz pur e alcohol) 1-2x a year [facility] Utilities Answer Date Recorded In the [...] often do you attend chur ch or taoist services? More than 4 times per year 11/21/2023 Do you belong to any clubs o r organizations such as episcopalian groups, unions, fraternal or athletic groups, or [...] Total Score - Questions 1-9 0 11/01 [facility] - [...] place to sleep or slept in a care home (including now)? No 11/21/2023 AUDIT-C Answer Date [...] file Not on file Not on file Last Filed Vital Signs Vital Sign Reading Time Taken Comments Blood Pressure 132/74 12/09/2024 3:38 PM CDT Pulse 77 12/09/2024 3:38 PM CDT Temperature 36.4 C (97.6 F) 12/09/2024 3:38 PM CDT Respiratory Rate 16 12/09/2024 3:38 PM CDT Oxygen Saturation 97% 12/09/2024 3:38 PM CDT Inhaled Oxygen Concentration - - Weight 61.2 kg (135 lb) 12/09/2024 3:38 PM CDT Height 162.6 cm (5' 4) 12/09/2024 3:38 PM CDT Body Mass Index 23.17 12/09/2024 3:38 PM CDT Plan of Treatment Upcoming Encounters Date Type Department Care Team (Late st Contact Info) Description 03/10/2025 4:00 PM CDT [facility] [address] [place] [address] Nolvia Lebron APRN, ELECTRICAL ENGINEERING DESIGNER [address] [phone] Discharge Disposition: Discharged to home or Selfcare 03/10/2025 4:45 PM CDT [facility] [address] [place] [address] Nolvia Lebron APRN, ELECTRICAL ENGINEERING DESIGNER [address] [phone] Discharge Disposition: Discharged to home or Selfcare Health Maintenance Due Date Last Done Comments Cologuard 02/12/2004 Zoster Immunization (1 of 2) 2009 Pneumococcal Immunization (5 0+ years) (2 of 2 - PCV) 11/08/2017 11/08/2016, 05/12/2012 Respiratory Syncytial Virus (RSV) Immunization (Adult) (1 - Risk 60-74 years 1-dose series) 2019 Immunochemical Fecal Occult Blood 04/19/2022 04/19/2021 DEXA Bone Density 02/10/2023 02/10/2021, 12/05/2014 Mammogram 01/08/2025 01/09/2024, 11/09/2022, 06/02/2020 Influenza Immunization (#1) 2025 12/0 12/2017, 04/13/2017, 05/12/2012 Td Immunization Every 10 Yea rs (Adults With 1 Tdap) 12/27/2025 12/28/2015 Colonoscopy 12/29/2027 12/28/2022, 10/24/2017, 10/29/2010 Colorectal Cancer Screening 12/29/2027 DTaP/Tdap/Td Immunization Discontinued 12/28/2015 Pneumococcal Immunization Combined Discontinued 11/08/2016, 05/12/2012 Lung Cancer Screening Discontinued 07/13/2018 , 12/20/2016 Hepatitis C Virus (HCV) Screening Completed 07/29/2022, 07/29/2022 Hepatitis B Immunization Aged Out No longer eligible based on patient's age to complete this topic Human Papillomavirus (HPV) Immunization Aged Out No longer eligible based on patient's age to complete this topic Meningococcal Immunization (ACWY) Aged Out No longer eligible based on patient's age to complete this topic Rotavirus Immunization Aged Out No lo nger eligible based on patient's age to complete this topic SARS-COV-2 Immunization Discontinued Procedures Procedure Name Priority Date/Time Associated Diagnosis Comments CULTURE, URINE Routine 12/27/2024 2:23 PM CDT History of blood in urine Unspecified abnormal findings in urine O & P, TRAVEL HX OR IMMUNOCOMPROMISED, FECES, CANCHOLA OPE Routine 12/23/2024 10:04 AM CDT Diarrhea, unspecified type CULTURE, STOOL Routine 12/23/2024 10:04 AM CDT Diarrhea, unspecified type STOOL, OVA & PARASITES (O&P) Routine 12/23/2024 10:04 AM CDT Diarrhea, unspecified type CBC WITH AUTO DIFFERENTIAL Routine 12/23/2024 9:57 AM CDT Body mass index (BMI) 23.0-23.9, adult Chronic obstructive pulmonary disease, unspecified COPD type (HCC) Gastroesophageal reflux disease, unspecified whether esophagitis present URINALYSIS REFLEX IF INDICATED BY ABNORMAL RESULTS Routine 12/23/2024 9:57 AM CDT Chronic obstructive pulmonary disease, unspecified COPD type (HCC) Gastroesophageal reflux disease, unspecified whether esophagitis present Current smoker VITAMIN D, 25 HYDROXY TOTAL Routine 12/23/2024 9:57 AM CDT Body mass index (BMI) 23.0-23.9, adult Gastroesophageal reflux disease, unspecified whether esophagitis present regulatory agency director (current) use of opiate analgesic VITAMIN B12 Routine 12/23/2024 9:57 AM CDT Chronic obstructive pulmonary disease, unspecified COPD type (HCC) Gastroesophageal reflux disease, unspecified whether esophagitis present THYROID STIMULATING HORMONE (TSH) Routine 12/23/2024 9:57 AM CDT Chronic obstructive pulmonary disease, unspecified COPD type (HCC) Gastroesophageal reflux disease, unspecified whether esophagitis present Generalized anxiety disorder COMPLETE BLOOD COUNT (CBC) WITH DIFF Routine 12/23/2024 9:57 AM CDT Body mass index (BMI) 23.0-23.9, adult Chronic obstructive pulmonary disease, unspecified COPD type (HCC) Gastroesophageal reflux disease, unspecified whether esophagitis present LIPID PANEL Routine 12/23/2024 9:57 AM CDT Gastroesophageal reflux disease, unspecified whether esophagitis present Encounter for screening for cardiovascular disorders CMP (COMPREHENSIVE METABOLIC PANEL) Routine 12/23/2024 9:57 AM CDT Gastroesophageal reflux disease, unspecified whether esophagitis present BETH SCREENING BILATERAL DIGITAL W CAD W ERMA Routine 01/09/2024 3:33 PM CDT Encounter for screening mammogram for malignant neoplasm of breast HEPATITIS C ANTIBODY Routine 07/29/2022 11:55 AM ENVIRONMENTAL EDUCATOR B12 deficiency Neuropathy Other fatigue Arthritis Myalgia Hypomagnesemia Diabetes mellitus of other type without complication, unspecified whether fci insulin use (HCC) Vitamin D deficiency Vitamin B12 deficiency Encounter for therapeutic drug monitoring Screening examination for poliomyelitis STOOL, OCCULT BLOOD, DIAGNOSTIC, VIA GUAIAC Routine 04/19/2021 2:09 PM CDT Iron deficiency anemia, unspecified iron deficiency anemia type BETH BONE DENSITOMETRY AXIAL SKELETON Routine 02/10/2021 2:[address] CHEST SCREENING WO Routine 07/13/2018 2:23 PM ENVIRONMENTAL EDUCATOR Personal history of nicotine dependence HM COLONOSCOPY Routine 10/29/2010 from Last 3 Months or Most Recently Relevant to Health Maintenance Results * CULTURE, URINE (12/27/2024 2:23 PM CDT) CULTURE RESULTS Mixed Growth of One or More Distal Urethral Contaminants 12/28/2024 5:46 PM CDT [facility] Culture URINE SPECIMEN OBTAINED BY CLEAN CATCH PROCEDURE / Unknown Non-Phlebotomy Collection / Unknown 12/27/2024 2:23 PM CDT 12/27/2024 2:32 PM CDT Nolvia Lebron APRN, MELIDA MICROBIOLOGY - [facility] AL ORDERABLES Final Result [facility] [address] [place] [address], [place] * O & P, TRAVEL HX OR IMMUNOCOMPROMISED, FECES, ALVIN OPE (12/23/2024 10:04 AM CDT) Pathologist [facility] OPE, OVA AND PARASITE, MICROSCOPY, F SEE NOTE 12/27/2024 8:22 AM CDT [facility] Comment: SOURCE: STOOL, STLP OVA AND PARASITE, MICROSCOPY, F FINAL No parasites seen. Cryptosporidium, Cyclospora, and microsporidia are not readily detected by this method. Single negative specimen does not rule out parasitic infection. Test Performed by: [facility] [place] [address] Seamless Tube Roller: Elvia Dale Ph.D.; CLIA# [id number] Stool Non-Phlebotomy Collection / Unknown 12/23/2024 10:04 AM CDT 12/23/2024 10:45 AM CDT Nolvia Lebron APRN, ELECTRICAL ENGINEERING DESIGNER LAB SEND OUTS Nanette l Result [facility] * CULTURE, STOOL (12/23/2024 10:04 AM CDT) CULTURE RESULTS NEGATIVE FOR CAMPYLOBACTER ANTIGEN 12/26/2024 8:18 AM CDT [facility] CULTURE RESULTS SHIGA TOXIN 1 AND SHIGA TOXIN 2 NOT DETECTED 12/26/2024 8:18 AM CDT [facility] CULTURE RESULTS Heavy Probable usual mckay for this specimen source 12/26/2024 8:18 AM CDT [facility] Culture STOOL SPECIMEN / Unknown Non-Phlebotomy Collection / Unknown 12/23/2024 10:04 AM CDT 12/23/2024 10:45 AM CDT Narrative [facility] - 12/26/2024 8:18 AM CDT Unless stated above as an isolate, no Salmonella, Shigella, E Coli O157, Aeromonas, or Pleisiomonas species isolated us Nolvia Lebron FRANCHISE CONSULTANT, ELECTRICAL ENGINEERING DESIGNER MICROBIOLOGY - GENER AL ORDERABLES Final Result [facility] [address] [place] [address], * VITAMIN D, 25 HYDROXY TOTAL (12/23/2024 9:57 AM CDT) VITAMIN D, 25 HYDROX 33.8 ng/mL 12/23/2024 11:49 AM CDT [facility] Blood Venipuncture / Unknown 12/23/2024 9:57 AM CDT 12/23/2024 10:43 AM CDT Narrative [facility] - 12/23/2024 11:49 AM CDT Published reference ranges for Vitamin D vary depending on time and place and method of testing, and on patient's age, sex, ethnicity and levels of other measured analytes such as parathormone, calcium and phosphorus. The result should be evaluated in conjunction with clinical findings and suspicions. [place] [employer] Clinical Practice Guidelines: Status Vitamin D levels (ng/mL) Deficient <=20 At risk of inadequacy 21-29 Sufficient 30-100 Centers of Disease Control and Prevention Guidelines: Status Vitamin D levels (ng/mL) Deficient <13 At risk of inadequacy 13-19 Sufficient 20-50 Possibly harmful >50 References: [place] [employer], 2010 Dietary reference intakes for calcium and vitamin D. [place]: The National Academies Press. Bruna M, Simran N, Lilly LEIGH, et al., Evaluation, treatment, and prevention of Vitamin D deficiency: an Endocrinology Clinical Practice Guideline. JCEM 2011 96: 7 7345-6767. Ailyn A, Andrade C, Leona D, et al., Vitamin D Status: [place], 0779-7428, [facility] data brief, no. 59, [place] Samantha: [facility] Statistics. 2011. us Nolvia Tafoyathomas FRANCHISE CONSULTANT, ELECTRICAL ENGINEERING DESIGNER CHEMISTRY ORDERABLES Final Result [facility] [address] [place] [address] * (ABNORMAL) URINALYSIS REFLEX IF INDICATED BY ABNORMAL RESULTS (12/23/2024 9:57 AM CDT) SPECIFIC GRAVITY 1.025 1.003 - 1.030 12/23/2024 11:12 AM CDT [facility] URINE PH 5.0 5.0 - 9.0 12/23/2024 11:12 AM CDT [facility] WBC ESTERASE Negative Negative 12/23/2024 11:12 AM CDT [facility] NITRITE Negative Negative 12/23/2024 11:12 AM CDT [facility] PROTEIN, RANDOM URINE 30 mg/dL(A) Negative 12/23/2024 11:12 AM CDT [facility] URINE GLUCOSE, QUAL Negative Negative 12/23/2024 11:12 AM CDT [facility] URINE KETONES Negative Negative 12/23/2024 11:12 AM CDT [facility] UROBILINOGEN Normal Normal mg/dL 12/23/2024 11:12 AM CDT [facility] URINE BLOOD 50 /uL(A) Negative shahzad/ul 12/23/2024 11:12 AM CDT [facility] URINALYSIS COLOR Yellow 12/24/19 11:12 AM CDT [facility] URINALYSIS CLARITY Slightly Cloudy 12/23/2024 11:12 AM CDT [facility] WBC (Urine) Negative Negative, 0-5 /hpf 12/23/2024 11:12 AM CDT [facility] URINE RBC'S Negative Negative, 0-2 /hpf 12/23/2024 11:12 AM CDT [facility] EPITHELIAL CELLS Small amount /lpf 2024 11:12 AM CDT [facility] BACTERIA, URINE Few(A) Negative /hpf 12/23/2024 11:12 AM CDT [facility] Urine URINE SPECIMEN OBTAINED BY CLEAN CATCH PROCEDURE / Unknown Non-Phlebotomy Collection / Unknown 12/23/2024 9:57 AM CDT 12/23/2024 10:43 AM CDT us Nolvia Lebron APRN, CNP URINE ORDERABLES Fin al Result [facility] [address] [place] [address] * (ABNORMAL) CBC WITH AUTO DIFFERENTIAL (12/23/2024 9:57 AM CDT) WBC 6.74 4.00 - 12.00 10(3)/mcL 12/23/2024 10:49 AM CDT [facility] RBC 4.60 3.80 - 5.30 10(6)/mcL 12/23/2024 10:49 AM CDT [facility] HEMOGLOBIN (HGB) 14.6 12.0 - 15.8 g/dL 12/23/2024 10:49 AM CDT [facility] HEMATOCRIT (HCT) 44.7 36.0 - 47.0 % 12/23/2024 10:49 AM CDT [facility] MCV 97.2(H) 82.0 - 96.0 fL 12/23/2024 10:49 AM CDT [facility] MCH 31.7 26.0 - 34.0 pg 12/23/2024 10:49 AM CDT [facility] MCHC 32.7 31.0 - 36.0 g/dL 12/23/2024 10:49 AM CDT [facility] PLATELET COUNT 310 140 - 440 10(3)/mcL 12/23/2024 10:49 AM CDT [facility] RDW 12.5 11.8 - 15.5 % 12/23/2024 10:49 AM CDT [facility] MPV 9.1(L) 9.7 - 12.4 fL 12/23/2024 10:49 AM CDT [facility] NEUTROPHILS 67.8 47.0 - 73.0 % 12/23/2024 10:49 AM CDT [facility] LYMPHOCYTES 20.8 18.0 - 42.0 % 12/23/2024 10:49 AM CDT [facility] MONOCYTES 6.7 4.0 - 12.0 % 12/23/2024 10:49 AM CDT [facility] EOSINOPHILS 4.0 0.0 - 5.0 % 12/23/2024 10:49 AM CDT [facility] BASOPHILS 0.4 0.0 - 1.0 % 12/23/2024 10:49 AM CDT [facility] IMMATURE GRANULOCYTE 0.3 0.0 - 0.4 % 12/23/2024 10:49 AM CDT [facility] Comment:Immature Granulocyte s includes Metamyelocytes, Myelocytes, and Promyelocytes. ABSOLUTE NEUTROPHILS 4.57 1.60 - 7.70 10(3)/mcL 12/23/2024 10:49 AM CDT [facility] ABSOLUTE LYMPHOCYTES 1.40 1.30 - 3.20 10(3)/mcL 12/23/2024 10:49 AM CDT [facility] ABSOLUTE MONOCYTES 0.45 0.20 - 1.00 10(3)/mcL 12/23/2024 10:49 AM CDT [facility] ABSOLUTE EOSINOPHIL 0.27 0.00 - 0.40 10(3)/mcL 12/23/2024 10:49 AM CDT [facility] ABSOLUTE BASOPHILS 0.03 0.00 - 0.10 10(3)/[facility] 12/23/2024 10:49 AM CDT [facility] ABSOLUTE IMMATURE GRANULOCYTE 0.02 0.00 - 0.03 10 (3) mcL. 12/23/2024 10:49 AM CDT [facility] NRBC PER 100 WBC 0 12/24/19 10:49 AM CDT [facility] Blood Venipuncture / Unknown 12/23/2024 9:57 AM CDT 12/23/2024 10:43 AM CDT us Nolvia Lebron APRN, ELECTRICAL ENGINEERING DESIGNER HEMATOLOGY ORDERABLE S Final Result Performing Organization Address City/[facility]/ZIP Co de Phone Number [facility] [address] [place] [address] * VITAMIN B12 (12/23/2024 9:57 AM CDT) VITAMIN B12 440 213 - 816 pg/mL 12/23/2024 11:49 AM CDT [facility] Blood Venipuncture / Unknown 12/23/2024 9:57 AM CDT 12/23/2024 10:43 AM CDT us Nolvia Lebron APRN, ELECTRICAL ENGINEERING DESIGNER CHEMISTRY ORDERABLES Final Result Performing Organization Address [facility] Co de Phone Number [facility] [address] [place] [address] * THYROID STIMULATING HORMONE (TSH) (12/23/2024 9:57 AM CDT) TSH 1.158 0.300 - 5.000 mIU/L 12/23/2024 11:39 AM CDT [facility] Blood Venipuncture / Unknown 12/23/2024 9:57 AM CDT 12/23/2024 10:43 AM CDT us Nolvia Lebron FRANCHISE CONSULTANT, ELECTRICAL ENGINEERING DESIGNER CHEMISTRY ORDERABLES Final Result [facility] [address] [place] [address] * (ABNORMAL) LIPID PANEL (12/23/2024 9:57 AM CDT) CHOLESTEROL 216(H) <200 mg/dL 12/23/2024 11:24 AM CDT [facility] TRIGLYCERIDES 96 <150 mg/dL 12/23/2024 11:24 AM CDT [facility] HDL CHOLESTEROL 70 >40 mg/dL 11:24 AM CDT [facility] LDL 127 <130 mg/dL 12/23/2024 11:24 AM CDT [facility] VLDL 19 10 - 50 mg/dL 12/23/2024 11:24 AM CDT [facility] CHOL/HDL RATIO 3.1 0.0 - 4.4 12/23/2024 11:24 AM CDT [facility] NON-HDL CHOLESTEROL 146(H) <130 mg/dL 12/23/2024 11:24 AM CDT [facility] IS THE PATIENT REQUIRED TO BE FASTING? Yes 12/23/2024 11:24 AM CDT [facility] HAS THE PATIENT BEEN FASTING? Yes 12/23/2024 11:24 AM CDT [facility] Blood Venipuncture / Unknown 12/23/2024 9:57 AM CDT 12/23/2024 10:43 AM CDT us Nolvia Lebron FRANCHISE CONSULTANT, ELECTRICAL ENGINEERING DESIGNER CHEMISTRY ORDERABLES Final Result [facility] [address] [place] [address] * (ABNORMAL) CMP (COMPREHENSIVE METABOLIC PANEL) (12/23/2024 9:57 AM CDT) SODIUM 141 136 - 145 mmol/L 12/23/2024 11:24 AM CDT [facility] POTASSIUM 4.3 3.5 - 5.1 mmol/L 12/23/2024 11:24 AM [facility] CHLORIDE 109(H) 98 - 107 mmol/L 12/23/2024 11:24 AM [facility] CO2, VENOUS 24 22 - 30 mmol/L 12/23/2024 11:24 AM [facility] ANION GAP 12.3 <18.0 mmol/L 12/23/2024 11:24 AM T [facility] GLUCOSE 110(H) 70 - 99 mg/dL 12/23/2024 11:24 AM [facility] BUN 24(H) 10 - 20 mg/dL 12/23/2024 11:24 AM [facility] CREATININE, BLOOD 0.76 0.60 - 1.00 mg/dL 12/23/2024 11:24 AM T [facility] BUN/CREATININE RATIO 32(H) 12 - 20 ratio 12/23/2024 11:24 AM T [facility] TOTAL PROTEIN 7.2 6.0 - 8.0 g/dL 12/23/2024 11:24 AM [facility] ALBUMIN 4.4 3.5 - 5.0 g/dL 12/23/2024 11:24 AM [facility] A/G RATIO 1.6 1.0 - 2.2 12/23/2024 11:24 AM [facility] CALCIUM 8.6(L) 8.7 - 10.5 mg/dL 12/23/2024 11:24 AM T [facility] T BILI 0.6 0.2 - 1.2 mg/dL 12/23/2024 11:24 AM T [facility] SGOT (AST) 19 <43 U/L 12/23/2024 11:24 AM T [facility] SGPT (ALT) 16 <56 U/L 12/23/2024 11:24 AM T [facility] ALKALINE PHOSPHATASE 81 40 - 150 U/L 12/23/2024 11:24 AM CDT [facility] IS THE PATIENT REQUIRED TO BE FASTING? No 12/23/2024 11:24 AM CDT [facility] GFR, ESTIMATED >60 >=60 12/23/2024 11:24 AM CDT [facility] Comment: Creatinine Clearance is the preferred criteria for selecting drug dose adjustments in renally impaired patients. The GFR is provided as additional pertinent clinical information. GFR is reported in mL/min/1.73 sq m. Calculation based on the Chronic Kidney Disease Epidemiology Collaboration (CKD- EPI) equation refit without adjustment for race. GFR, EST. >60 >=60 025 11:24 AM CDT [facility] GFR, EST. NONAFRICAN >60 >=60 12/23/2024 11:24 AM CDT [facility] Blood Venipuncture / Unknown 12/23/2024 9:57 AM CDT 12/23/2024 10:43 AM CDT us Nolvia Lebron APRN, MELIDA CHEMISTRY ORDERABLES Final Result [facility] [address] [place] [address] * BETH SCREENING BILATERAL DIGITAL W CAD W ERMA (01/09/2024 3:33 PM CDT) Anatomical Region Laterality Modality breast Bilateral Mammography 01/09/2024 4:42 PM CDT Narrative 01/11/2024 11:49 AM CDT - BETH SCREENING BILATERAL DIGITAL W CAD W ERMA BILATERAL DIGITAL SCREENING MAMMOGRAM 3D/2D WITH CAD WITH MEDIOLATERAL OBLIQUE CRANIOCAUDAL: 01/09/2024 The study was acquired using digital technology and interpreted from soft copy. Current study was also evaluated with ICAD version 7.2. 2D digital mammographic views, as well as 3D digital tomosynthesis were performed in the CC and MLO projections. CLINICAL: Routine screening. Patient has no complaints. No personal history of cancer. Paternal grandmother had breast cancer. Paternal aunt had breast cancer. COMPARISONS: Comparison is made to exams dated: 11/09/2022 [facility], 06/02/2020, and 05/21/2019 [facility]. BREAST TISSUE:There are scattered fibroglandular densities in both breasts. FINDINGS: No significant masses, calcifications, or other findings are seen in either breast. There has been no significant interval change. IMPRESSION: BI-RAD 1 NEGATIVE There is no mammographic evidence of malignancy. A 1 year screening mammogram is recommended. A letter will be sent to the patient with these results. The patient will be entered into a reminder system with a target due date of 1 year for her next screening exam. Electronically signed by: Melita golden/merlin:01/10/2024 21:22:10 Industrial Robotics Mechanic(s): RT Radha(R)(M), [facility] letter sent: Normal Exam Reading location: [facility] BI-RADS: 1 Negative Procedure Note Melita Sales MD - 01/11/2024 - BETH SCREENING BILATERAL DIGITAL W CAD W ERMA BILATERAL DIGITAL SCREENING MAMMOGRAM 3D/2D WITH CAD WITH MEDIOLATERAL OBLIQUE CRANIOCAUDAL: 01/09/2024 The study was acquired using digital technology and interpreted from soft copy. Current study was also evaluated with ICAD version 7.2. 2D digital mammographic views, as well as 3D digital tomosynthesis were performed in the CC and MLO projections. CLINICAL: Routine screening. Patient has no complaints. No personal history of cancer. Paternal grandmother had breast cancer. Paternal aunt had breast cancer. COMPARISONS: Comparison is made to exams dated: 11/09/2022 [facility], 06/02/2020, and 05/21/2019 [facility]. BREAST TISSUE:There are scattered fibroglandular densities in both breasts. FINDINGS: No significant masses, calcifications, or other findings are seen in either breast. There has been no significant interval change. IMPRESSION: BI-RAD 1 NEGATIVE There is no mammographic evidence of malignancy. A 1 year screening mammogram is recommended. A letter will be sent to the patient with these results. The patient will be entered into a reminder system with a target due date of 1 year for her next screening exam. Electronically signed by: Melita golden/merlin:01/10/2024 21:22:10 Industrial Robotics Mechanic(s): RT Radha(R)(M), [facility] letter sent: Normal Exam Reading location: [facility] BI-RADS: 1 Negative us Nolvia Vi FRANCHISE CONSULTANT, ELECTRICAL ENGINEERING DESIGNER IMG MAMMO ORDERABLES Final Result * HEPATITIS C ANTIBODY (07/29/2022 11:55 AM ENVIRONMENTAL EDUCATOR) hepatitis C antibody 0.08 <1 S/CO [facility] ARCH [id number] B 07/29/2022 10:57 PM ENVIRONMENTAL EDUCATOR [facility] Comment: Signal/Cutoff ratio < 0.79 is Nondetected Signal/Cutoff ratio 0.80-0.99 is Grayzone Signal/Cutoff ratio > 0.99 is Detected Supplemental assays are recommended if signal/cutoff ratio is >/=1.00. Signal/cutoff ratio result >/= 5.00 is 97% predictive of positivity for recombinant immunoblot assay (RIBA) and will be reported to the [place] Department of Public Health as required. Blood Venipuncture / Unknown 07/29/2022 11:55 AM ENVIRONMENTAL EDUCATOR 07/29/2022 12:05 PM ENVIRONMENTAL EDUCATOR Debbie Carrington MD CHEMISTRY ORDERABLES Final Resul t [facility] [address] [place] [address], * STOOL, OCCULT BLOOD, DIAGNOSTIC (04/19/2021 2:09 PM CDT) OCCULT BLOOD DIAG Negative Negative 04/19/2021 5:04 PM CDT [facility] Stool STOOL SPECIMEN / Unknown Non-Phlebotomy Collection / Unknown 04/19/2021 2:09 PM CDT 04/19/2021 2:09 PM CDT us Nolvia Lebron FRANCHISE CONSULTANT, ELECTRICAL ENGINEERING DESIGNER BODY FLUIDS & STOOLS ORDERABLES Final Result [facility] [address] [place] [address] * [facility] BONE DENSITOMETRY AXIAL SKELETON (02/10/2021 2:15 PM CDT) Anatomical Region Laterality Modality BODY N/A Other 02/10/2021 3:17 PM CDT Impressions 02/10/2021 3:20 PM CDT IMPRESSION: 1. Low bone mass by WHO criteria. 2. The WHO fracture risk assessment tool (FRAX) indicates that the 10 year risk for a major osteoporotic fracture is 35.2% and the 10 year risk for a hip fracture is 4.6%. The FRAX tool has not been validated in patients currently or previously treated with pharmacotherapy for osteoporosis. In such patients, clinical judgement must be exercised in interpreting FRAX scores as the fracture risk may be overestimated. REFERENCE: Bone mineral density: Normal (T-score above or = -1.0) Low bone mass (T-score between -1.0 and -2.5) replaces the previously used term osteopenia Osteoporosis (T-score = or below -2.5) Medical evaluation for secondary causes of low bone mineral density may be appropriate. FRAX is a World Health Organization validated fracture risk assessment tool that calculates a person's 10 year probability of a major osteoporosis related fracture and hip fracture. According to the National Osteoporosis Foundation guidelines, postmenopausal women and men age 50 or older with low bone mass and a 10 year probability of a major osteoporosis related fracture = or greater than 20% or a 10 year probability of a hip fracture = or greater than 3% should be considered for treatment. For further information, including treatment recommendations, please refer to the 2013 ISCD Official Positions (http://www.iscd.org) and the NOF's Clinician's Guide to Prevention and Treatment of Osteoporosis (http://www.nof.org/professionals/clinical-guidelines) Narrative 02/10/2021 3:20 PM CDT EXAM DESCRIPTION: [facility] BONE DENSITOMETRY AXIAL SKELETON REASON FOR STUDY: Post-menopausal female, screening for osteoporosis. Process Checker/Model: [employer] (S/N [id number]) CLINICAL INFORMATION: Current height: 64 inches Maximum height: 64 inches Weight: 140 pounds Risk factors: History of a fracture as an adult, parental history of a hip fracture, current tobacco use, rheumatoid arthritis COMPARISON: None available. FINDINGS: AP LUMBAR SPINE L1-L4: Total BMD is 0.983 g/cm2 T-score is -1.7 LEFT HIP: Total BMD is 0.751 g/cm2 T-score is -2.0 Femoral neck BMD is 0.795 g/cm2 T-score is -1.7 THIS IS AN ELECTRONICALLY VERIFIED FINAL REPORT 02/10/2021 3:17 PM - Electronically signed by Morteza Pham M.D. AB: Report ID: [id number] Reading Location: [id number] Procedure Note Morteza Pham MD - 02/10/2021 EXAM DESCRIPTION: BETH BONE DENSITOMETRY AXIAL SKELETON REASON FOR STUDY: Post-menopausal female, screening for osteoporosis. Process Checker/Model: [employer] (S/N [id number]) CLINICAL INFORMATION: Current height: 64 inches Maximum height: 64 inches Weight: 140 pounds Risk factors: History of a fracture as an adult, parental history of a hip fracture, current tobacco use, rheumatoid arthritis COMPARISON: None available. FINDINGS: AP LUMBAR SPINE L1-L4: Total BMD is 0.983 g/cm2 T-score is -1.7 LEFT HIP: Total BMD is 0.751 g/cm2 T-score is -2.0 Femoral neck BMD is 0.795 g/cm2 T-score is -1.7 THIS IS AN ELECTRONICALLY VERIFIED FINAL REPORT 02/10/2021 3:17 PM - Electronically signed by Morteza Pham M.D. AB: Report ID: [id number] Reading Location: [id number] IMPRESSION: 1. Low bone mass by WHO criteria. 2. The WHO fracture risk assessment tool (FRAX) indicates that the 10 year risk for a major osteoporotic fracture is 35.2% and the 10 year risk for a hip fracture is 4.6%. The FRAX tool has not been validated in patients currently or previously treated with pharmacotherapy for osteoporosis. In such patients, clinical judgement must be exercised in interpreting FRAX scores as the fracture risk may be overestimated. REFERENCE: Bone mineral density: Normal (T-score above or = -1.0) Low bone mass (T-score between -1.0 and -2.5) replaces the previously used term osteopenia Osteoporosis (T-score = or below -2.5) Medical evaluation for secondary causes of low bone mineral density may be appropriate. FRAX is a World Health Organization validated fracture risk assessment tool that calculates a person's 10 year probability of a major osteoporosis related fracture and hip fracture. According to the National Osteoporosis Foundation guidelines, postmenopausal women and men age 50 or older with low bone mass and a 10 year probability of a major osteoporosis related fracture = or greater than 20% or a 10 year probability of a hip fracture = or greater than 3% should be considered for treatment. For further information, including treatment recommendations, please refer to the 2013 ISCD Official Positions (http://www.iscd.org) and the NOF's Clinician's Guide to Prevention and Treatment of Osteoporosis (http://www.nof.org/professionals/clinical-guidelines) Abby Rosas Corado PAC IMG DEXA ORDERABLES Final Result * CT CHEST SCREENING WO (07/13/2018 2:23 PM ENVIRONMENTAL EDUCATOR) Anatomical Region Laterality Modality Chest N/A Computed Tomogra phy 07/13/2018 2:45 PM ENVIRONMENTAL EDUCATOR Impressions 07/13/2018 2:56 PM ENVIRONMENTAL EDUCATOR IMPRESSION: 1.No suspicious pulmonary nodules or masses. 2.Healed pulmonary granulomatous disease. Lung-RADS Category 2: Benign appearance or behavior. Recommendation: Continue annual screening LDCT in 12 months. Narrative 07/13/2018 2:56 PM ENVIRONMENTAL EDUCATOR EXAM DESCRIPTION: CT CHEST SCREENING WO REASON FOR STUDY: Screening CT of the chest in a the current smoker with a 45 pack year smoking history. Additional history: COPD. TECHNIQUE: Low dose CT scan of the chest was performed without intravenous contrast using helical scanning technique. The exam extends from the lung apices through the lung bases. Automatic exposure control was used as a dose optimization technique. NOTE: This study was performed for the specific purposes of lung cancer screening and is not an alternative to diagnostic chest CT. RADIATION DOSE: CT dose index volume (CTDIvol) = 1.41 mGy COMPARISON: Chest CT from 12/20/2016 FINDINGS: SMOKING RELATED LUNG DISEASE: No substantial smoking related lung disease. LUNG NODULES: Calcified study. Granulomas in the right upper lobe similar the prior no noncalcified pulmonary nodules or masses. No endobronchial or endotracheal lesions. OTHER: Calcified mediastinal lymph nodes. Hiatal hernia. THIS IS AN ELECTRONICALLY VERIFIED FINAL REPORT 07/13/2018 2:45 PM - Electronically signed by Allan Silverio M.D. ARRON: ARRON Report ID: [id number] Reading Location: [place] [address] Procedure Note Allan Silverio MD - 07/13/2018 EXAM DESCRIPTION: CT CHEST SCREENING WO REASON FOR STUDY: Screening CT of the chest in a the current smoker with a 45 pack year smoking history. Additional history: COPD. TECHNIQUE: Low dose CT scan of the chest was performed without intravenous contrast using helical scanning technique. The exam extends from the lung apices through the lung bases. Automatic exposure control was used as a dose optimization technique. NOTE: This study was performed for the specific purposes of lung cancer screening and is not an alternative to diagnostic chest CT. RADIATION DOSE: CT dose index volume (CTDIvol) = 1.41 mGy COMPARISON: Chest CT from 12/20/2016 FINDINGS: SMOKING RELATED LUNG DISEASE: No substantial smoking related lung disease. LUNG NODULES: Calcified study. Granulomas in the right upper lobe similar the prior no noncalcified pulmonary nodules or masses. No endobronchial or endotracheal lesions. OTHER: Calcified mediastinal lymph nodes. Hiatal hernia. THIS IS AN ELECTRONICALLY VERIFIED FINAL REPORT 07/13/2018 2:45 PM - Electronically signed by Allan Silverio M.D. ARRON: ARRON Report ID: [id number] Reading Location: [place] [address] IMPRESSION: 1.No suspicious pulmonary nodules or masses. 2.Healed pulmonary granulomatous disease. Lung-RADS Category 2: Benign appearance or behavior. Recommendation: Continue annual screening LDCT in 12 months. us Aracely Lisa MD IMG CT ORDERABLES Final Resul t * HM COLONOSCOPY (10/29/2010) us Kevyn Obrien MD PROCEDURE/MINOR SURGICAL ORDER ERUM Final Result from Last 3 Months or Most Recently Relevant to Health Maintenance Insurance MEDICAID [place] MEDICARE C AETNA MEDICARE C HUMANA Advance Directives * Full Code (Latest Code Status on File) Date Activated Date Inactivated Comments 07/15/2017 5:21 PM 07/21/2017 3:19 PM CPR-Full Cory atment: FULL ARREST: Attempt Resuscitation/CPR wit intubation and mechanical ventilation. PRE-ARREST: Use entire range of life support measures to stabilize the patient. Care Teams Well Blower Relationship Specialty Start Date End Date Nolvia Lebron APRN, ELECTRICAL ENGINEERING DESIGNER [address] [address] PCP - General Advanced Practice Nurse 08/03/21 Barbara Lamar MD Obstetrics & Gynecology 05/15/20 Prema Marcelo APRN, ELECTRICAL ENGINEERING DESIGNER [address] [place] [address] Nurse Practitioner Advanced Practice Nurse 08/10/22
--- OUTSIDE RECORDS SUMMARY | 2025-03-09 09:21 | XMS_ITS | Encounter Summary ---
Author Organization [facility] Address [address] [facility] [place] [address] Phone Care Team Providers Care Strip Catcher Name Role Phone Cindy Morgan APRN, FORM TAMPING MACHINE OPERATOR Unavailable Juan M Hickey MD Unavailable [phone] Iker Cedillo DO Unavailable [phone] Barbara Lamar MD Unavailable Unavail able Nolvia Lebron HEALTH RESEARCHER, FORM TAMPING MACHINE OPERATOR Primary Care Provid er Prema Marcelo APRN, FORM TAMPING MACHINE OPERATOR Unavailable Zina Lugo HEALTH RESEARCHER, FORM TAMPING MACHINE OPERATOR Unavailable [phone] Reason for Visit * Reason Comments Medication Refill Encounter Details Date Type Department Care Team (Late st Contact Info) Description 03/10/2023 Refill [facility] - [place] [address] [place] [id number] Stephanie Redding, HEALTH RESEARCHER, FORM TAMPING MACHINE OPERATOR [address] [place] [address] Medication Refill Social History Tobacco Use Types [...] Telephone Encounter - Chiqui Urrutia RN - 03/10/2023 3:07 PM CDT Medication failed the protocol, provider to review and approve the medication order if appropriate. Requested Prescriptions Pending Prescriptions Disp Refills ondansetron (ZOFRAN) 4 MG Tablet [Pharmacy Med Name: Ondansetron HCl 4 MG Oral Tablet] 15 Tablet 0 Sig: TAKE 1 TABLET BY MOUTH EVERY 8 HOURS NEEDED FOR NAUSEA Not Delegated - 5-HT3 Antagonists Protocol Failed - 03/10/2023 1:50 PM Failed - This refill cannot be delegated Passed - Visit with relevant provider in past 12 months or upcoming 90 days Recent Visits Date Type Provider Dept 02/01/23 Office Visit Stephanie Redding APRN, MELIDA [facility] [place] 10/17/22 Office Visit Nolvia Lebron APRN, CNP [facility] [place] 10/11/22 Office Visit Nolvia Lebron APRN, CNP [facility] [place] 09/26/22 Office Visit Nolvia Lebron APRN, CNP [facility] 03/29/22 Office Visit Nolvia Lebron APRN, MELIDA [facility] Showing recent visits within past 365 days and meeting all other requirements Future Appointments Date Type Provider Dept 03/17/23 Appointment Nolvia Lebron APRN, CNP [facility] Showing future appointments within next 90 days and meeting all other requirements documented in this encounter Plan of Treatment Upcoming Encounters Date Type Department Care Team (Late st Contact Info) Description 03/10/2025 4:00 PM CDT [facility] [address] [place] [address] Nolvia Lebron APRN, FORM TAMPING MACHINE OPERATOR #[address] [address] Discharge Disposition: Discharged to home or Selfcare 03/10/2025 4:45 PM CDT [facility]ointment [facility] [address] [place] [address] Nolvia Lebron APRN, MELIDA [address] [address] Discharge Disposition: Discharged to home or Selfcare documented as of this encounter Visit Diagnoses Diagnosis Nausea Nausea alone documented in this encounter Additional Health Concerns Assessment Noted Time PHQ-9 Depression Total Score: 9 02/02/20 23 3:00 PM CDT documented as of this encounter Care Teams Strip Catcher Relationship Specialty Start Date End Date Nolvia Lebron APRN, MELIDA [address] [address] PCP - General Advanced Practice Nurse 08/03/21 Cindy Morgan APRN, MELIDA Nurse Practitioner Advanced Practice Nurse 04/18/16 Juan M Hickey MD General Surgery 10/25/16 06/09/24 Iker Cedillo DO Gastroenterology 11/07/16 06/09/24 Barbara Lamar MD Obstetrics & Gynecology 05/15/20 Prema Marcelo APRN, FORM TAMPING MACHINE OPERATOR [address] [place] [address] Nurse Practitioner Advanced Practice Nurse 08/10/22 Zina Lugo APRN, FORM TAMPING MACHINE OPERATOR [address] [facility] [address] [place] [address] Nurse Practitioner Cardiology 12/27/23 01/09/25 documented as of this encounter
--- OUTSIDE RECORDS SUMMARY | 2025-03-09 09:21 | XMS_ITS | Encounter Summary ---
Author Organization [facility] Address [address] [facility] [place] [address] Phone Care Team Providers Care Rn Case Manager Name Role Phone Cindy Morgan APRN, TILE TRIMMER Unavailable Juan M Hickey MD Unavailable [phone] Iker Cedillo DO Unavailable [phone] Barbara Lamar MD Unavailable Unavail able Dawson Rudd MD Primary Care Provider Nolvia Lebron APRN, TILE TRIMMER Primary Care Provid er Prema Marcelo APRN, TILE TRIMMER Unavailable Zina Lugo SHAPER SETTER, TILE TRIMMER Unavailable + [phone] Reason for Visit * Reason Comments Medication Refill Encounter Details Date Type Department Care Team (Late st Contact Info) Description 10/26/2020 Refill [facility] - [place] [address] [place] [address] Nolvia Lebron APRN, TILE TRIMMER #[address] [address] Medication Refill Social History Tobacco [...] have Coronavirus / COVID-19? No / Unsure 10/29/2020 12:59 PM CDT documented as of this encounter Miscellaneous Notes * Telephone Encounter - Dawson Rudd MD - 10/29/2020 8:42 AM CDT Prescription pending signature * Telephone Encounter - Chiqui Urrutia RN - 10/28/2020 9:35 AM CDT [place] PDMP 10/16/20 - 5 days supply Medication failed the protocol, provider to review and approve the medication order if appropriate. Requested Prescriptions Pending Prescriptions Disp Refills acetaminophen-codeine (TYLENOL #3) 300-30 MG Tablet [Pharmacy Med Name: Acetaminophen-Codeine #3 300-30 MG Oral Tablet] 20 Tablet 0 Sig: Take 1 Tablet by mouth every 6 hours as needed for Severe pain. [facility] Not Delegated - Analgesics: Opioid Agonist Combinations Failed - 10/28/2020 9:35 AM Failed - This refill cannot be delegated Passed - Valid encounter within last 6 months Past Office Visits Recent Outpatient Visits 1 week ago Fibromyalgia [facility] - Nolvia Carter APN, CNP 4 weeks ago Fibromyalgia [facility] - Nolvia Carter APN, CNP 1 month ago Fibromyalgia [facility] - Nolvia Carter SAS ADMINISTRATOR, TILE TRIMMER 5 months ago Right-sided isch[facility] - Dawson Dickerson MD 5 months ago Pulmonary emphysema, unspecified emphysema type (HCC) [facility] - Dawson Dickerson MD Upcoming Appointments Future Appointments In 2 weeks Nolvia Lebron APN, TILE TRIMMER [facility], [facility] LEATHER FITTER - Recent and Past Visits Recent Visits Date Type Provider Dept 10/16/20 Office Visit Nolvia Lebron APN, TILE TRIMMER [facility] 09/29/20 Office Visit Nolvia Lebron APN, TILE TRIMMER [facility] [place] 09/25/20 Office Visit Nolvia Lebron APN, TILE TRIMMER [facility] [place] 05/26/20 Office Visit Dawson Rudd MD [facility] 05/15/20 Office Visit [facility] Show[facility] recent visits within past 460 days with a meds authorizing provider and meeting all other requirements Future Appointments Date Type Provider Dept 11/13/20 Appointment Nolvia Lebron APN, TILE TRIMMER [facility] Showing future appointments within next 90 days with a meds authorizing provider and meeting all other requirements documented in this encounter Plan of Treatment Upcoming Encounters Date Type Department Care Team (Late st Contact Info) Description 03/10/2025 4:00 PM CDT [facility] [address] [place] [address] Nolvia Lebron APRN, TILE TRIMMER #[address] [phone] Discharge Disposition: Discharged to home or Selfcare 03/10/2025 4:45 PM CDT [facility] [address] [place] [id number] Nolvia Lebron APRN, TILE TRIMMER #[address] [address] Discharge Disposition: Discharged to home or Selfcare documented as of this encounter Visit Diagnoses Diagnosis Chronic right-sided low back pain with right-sided sciatica documented in this encounter Additional Health Concerns Infection Onset Date Last Indicated Resolved Time COVID - 19 07/26/2021 07/26/2021 07/27/2021 9:40 AM RECREATION AIDE COVID - 19 Confirmed 07/26/2021 07/26/2021 022 12:16 AM RECREATION AIDE Assessment Noted Time PHQ-9 Depression Total Score: 0 05/15/20 20 10:08 AM RECREATION AIDE documented as of this encounter Care Teams Rn Case Manager Relationship Specialty Start Date End Date Dawson Rudd MD #[address] [address] PCP - General Family Medicine 05/26/20 08/02/21 Nolvia Lebron APRN, TILE TRIMMER #[address] [address] PCP - General Advanced Practice Nurse 08/03/21 Cindy Morgan APRN, TILE TRIMMER Nurse Practitioner Advanced Practice Nurse 04/18/16 Juan M Hickey MD General Surgery 10/25/16 06/09/24 Iker Cedillo DO Gastroenterology 11/07/16 06/09/24 Barbara Lamar MD Obstetrics & Gynecology 05/15/20 Prema Marcelo APRN, TILE TRIMMER [address] [place] [address] Nurse Practitioner Advanced Practice Nurse 08/10/22 Zina Lugo APRN, TILE TRIMMER #2 [facility], [facility] [address] [place] [address] Nurse Practitioner Cardiology 12/27/23 01/09/25 documented as of this encounter
--- OUTSIDE RECORDS SUMMARY | 2025-03-09 09:21 | XMS_ITS | Encounter Summary ---
Author Organization [facility] Address [address] [facility] [place] [address] Phone Care Team Providers Care Retort Operator Name Role Phone Cindy Morgan APRN, LOG DATA TECHNICIAN Unavailable Juan M Hickey MD Unavailable [phone] Iker Cedillo DO Unavailable [phone] Barbara Lamar MD Unavailable Unavail able Nolvia Lebron PARTS SPECIALIST, LOG DATA TECHNICIAN Primary Care Provid er Prema Marcelo APRN, LOG DATA TECHNICIAN Unavailable Zina Lugo APRN, LOG DATA TECHNICIAN Unavailable [phone] Reason for Visit * Reason Comments Medication Refill Encounter Details Date Type Department Care Team (Late st Contact Info) Description 02/20/2024 Refill [facility] - [facility] - [place] [address]2 [place] [phone] Prema Marcelo APRN, LOG DATA TECHNICIAN [address] [place] [address] Medication Refill Social History Tobacco Use Types Packs/Day Years Used Date Smoking Tobacco: Every Day Cigarettes 0.3 45 Smokeless Tobacco: Never Comments:Quit 3 days ago Alcohol Use Standard Drinks/Week Comments Yes 0 (1 standard drink = 0.6 oz pur e alcohol) 1-2x a year [facility] Utilities Answer Date Recorded In the [...] often do you attend chur ch or baptist services? More than 4 times per year 11/21/2023 Do you belong to any clubs o r organizations such as sabianist groups, unions, fraternal or athletic groups, or [...] Total Score - Questions 1-9 9 08/2022 [facility] of Occupat ional Health - Occupational Stress [...] Telephone Encounter - Emerita Thomas RN - 02/21/2024 12:03 PM CDT Medication refilled and signed per [facility] chronic medication standing order for pediatric and adult patients. documented in this encounter Plan of Treatment Upcoming Encounters Date Type Department Care Team (Late st Contact Info) Description 03/10/2025 4:00 PM CDT [facility] [address] [place] [address] Nolvia Lebron APRN, LOG DATA TECHNICIAN #[address] [address] Discharge Disposition: Discharged to home or Selfcare 03/10/2025 4:45 PM CDT Appointment [facility] Mammography [address] [place] [address] Nolvia Lebron APRN, LOG DATA TECHNICIAN #[address] [address] Discharge Disposition: Discharged to home or Selfcare documented as of this encounter Visit Diagnoses Not on filedocumented in this encounter Additional Health Concerns Assessment Noted Time PHQ-9 Depression Total Score: 9 02/02/20 23 3:00 PM CDT documented as of this encounter Care Teams Retort Operator Relationship Specialty Start Date End Date Nolvia Lebron APRN, LOG DATA TECHNICIAN #[address] [address] PCP - General Advanced Practice Nurse 08/03/21 Cindy Morgan APRN, LOG DATA TECHNICIAN Nurse Practitioner Advanced Practice Nurse 04/18/16 Juan M Hickey MD General Surgery 10/25/16 06/09/24 Iker Cedillo DO Gastroenterology 11/07/16 06/09/24 Barbara Lamar MD Obstetrics & Gynecology 05/15/20 Prema Marcelo APRN, LOG DATA TECHNICIAN [address] [place] [address] Nurse Practitioner Advanced Practice Nurse 08/10/22 Zina Lugo APRN, LOG DATA TECHNICIAN #2 [facility] [address] [place] [address] Nurse Practitioner Cardiology 12/27/23 01/09/25 documented as of this encounter
--- OUTSIDE RECORDS SUMMARY | 2025-03-09 09:21 | XMS_ITS | Encounter Summary ---
Author Organization [facility] Address [address] [facility] [place] [address] Phone Care Team Providers Care Brine Tank Operator Name Role Phone Cindy Morgan APRN, BUFFING WHEEL OPERATOR Unavailable Juan M Hickey MD Unavailable [phone] Iker Cedillo DO Unavailable [phone] Barbara Lamar MD Unavailable Unavail able Nolvia Lebron APRN, BUFFING WHEEL OPERATOR Primary Care Provid er Prema Marcelo APRN, BUFFING WHEEL OPERATOR Unavailable Zina Lugo APRN, BUFFING WHEEL OPERATOR Unavailable [phone] Reason for Visit * Reason Comments Medication Refill Encounter Details Date Type Department Care Team (Late st Contact Info) Description 01/09/2023 Refill [facility] - [place] [address] [place] [address] Nolvia Lebron APRN, BUFFING WHEEL OPERATOR #[address] [address] Medication Refill Social History Tobacco [...] suspected to have Coronavirus/COVID-19? No / Unsure 12/28/2022 9:29 AM CDT documented as of this encounter Miscellaneous Notes * Telephone Encounter - Ivonne Crockett RN - 01/10/2023 8:09 AM CDT Medication failed the protocol, provider to review and approve the medication order if appropriate. Requested Prescriptions Pending Prescriptions Disp Refills mirtazapine (REMERON) 15 MG Tablet [Pharmacy Med Name: Mirtazapine 15 MG Oral Tablet] 90 Tablet 0 Sig: Take 1 tablet by mouth nightly Alpha-2 Receptor Antagonists (6 Month Refill Only) Protocol Failed - 01/09/2023 1:03 PM Failed - Has an encounter in the past 6 months with a depression or anxiety visit diagnosis Passed - Visit with relevant provider in past 6 months or upcoming 90 days Recent Visits Date Type Provider Dept 10/17/22 Office Visit Nolvia Lebron APRN, CNP [facility] 10/11/22 Office Visit Nolvia Lebron APRN, [facility] 09/26/22 Office Visit Nolvia Lebron APRN, CNP [facility] Showing recent visits within past 182 days [...] [facility] [address] [place] [address] Nolvia Lebron APRN, BUFFING WHEEL OPERATOR #[address] [address] Discharge Disposition: Discharged to home or Selfcare 03/10/2025 4:45 PM CDT [facility] [address] [place] [address] Nolvia Lebron APRN, BUFFING WHEEL OPERATOR #[address] [address] Discharge Disposition: Discharged to home or Selfcare documented as of this encounter Visit Diagnoses Not on filedocumented in this encounter Additional Health Concerns Assessment Noted Time PHQ-9 Depression Total Score: 0 12/02/19 22 8:06 AM CDT documented as of this encounter Care Teams Brine Tank Operator Relationship Specialty Start Date End Date Nolvia Lebron APRN, [facility] #[address] [address] PCP - General Advanced Practice Nurse 08/03/21 Cindy Morgan APRN, BUFFING WHEEL OPERATOR Nurse Practitioner Advanced Practice Nurse 04/18/16 Juan M Hickey MD General Surgery 10/25/16 06/09/24 Iker Cedillo DO Gastroenterology 11/07/16 06/09/24 Barbara Lamar MD Obstetrics & Gynecology 05/15/20 Prema Marcelo APRN, BUFFING WHEEL OPERATOR [address] [place] [address] Nurse Practitioner Advanced Practice Nurse 08/10/22 Zina Lugo APRN, BUFFING WHEEL OPERATOR #2 [facility] [address] [place] [address] Nurse Practitioner Cardiology 12/27/23 01/09/25 documented as of this encounter
--- NOTE | 2025-03-09 09:59 | ED.URI ---
HPI - URI/Sore Throat General Chief Complaint: Upper Respiratory Infection Stated Complaint: upper respiratory Time Seen by Provider: 03/09/25 09:45 Source: patient and RN notes reviewed Mode of arrival: ambulatory Limitations: no limitations History of Present Illness HPI Narrative: 65-year-old female presents Express Care complaining of upper respiratory symptoms for 4 days. Patient reports cough, congestion, runny nose, mucopurulent sputum production. Patient has a history of COPD. Patient says she feels more short of breath than normal, she reports increased viscosity of her mucus and increased purulence to her mucus production. Patient denies any fevers, body aches, chills, nausea, vomiting, diarrhea, or other symptoms. Patient has been using her inhaler with some relief. Related Data Home Medications ?Medication ?Instructions ?Recorded ?Confirmed ?Last Taken ?Type albuterol sulfate 90 mcg/actuation 2 puff inhalation QID PRN Dyspnea 08/18/19 08/18/19 Unknown History aerosol inhaler (Ventolin HFA) hydrocodone 5 mg-acetaminophen 325 tablet 03/09/25 Unknown History mg tablet Allergies Allergy/AdvReac Type Severity Reaction Status Date / Time azithromycin Allergy Unknown Rash Verified 03/09/25 09:26 Review of Systems Review of Systems: CONSTITUTIONAL: Denies fever, chills, body aches, or sweats. EYES: Denies visual changes, redness, or discharge. ENT: Positive for rhinorrhea, congestion, sore throat. Negative for otalgia. CARDIOVASCULAR: Denies chest pain, palpitations, or edema. RESPIRATORY: Positive for cough and dyspnea. Negative for wheezing. GASTROINTESTINAL: Denies abdominal pain, nausea, vomiting, or diarrhea. GENITOURINARY: Denies dysuria or hematuria. SKIN: Denies rash or itching. MUSCULOSKELETAL: Denies back pain, joint pain, or myalgia. NEUROLOGIC: Denies headache, numbness, or weakness. PSYCHIATRIC: Denies anxiety or depression. All other systems reviewed are negative, except as documented in HPI. [facility] Past Medical History Medical History Anorexia Panic attacks Bipolar 1 disorder Fibromyalgia Ganglion cyst of wrist Diverticulitis IBS (irritable bowel syndrome) GERD (gastroesophageal reflux disease) Rheumatoid arthritis Hiatal hernia Anxiety and depression Schizophrenia COPD (chronic obstructive pulmonary disease) Surgical History Surgical History History of removal of ovarian cyst Social History Social History Smoking packs per day: 0.5 Smoking cigarettes per day: 10.0 Years smoked: 40 Smoking pack-years: 20.00 Smoking status: Current every day smoker Tobacco type: cigarettes Living arrangements: with family Gender identity (if verbalized by the patient): Female Comments At the time of my signature, I reviewed and agree with the nursing past medical, surgical, social, and family history. There is no relevant family history pertinent to the patient complaint. Exam Narrative: GENERAL: This is a well-nourished, well-developed adult, in no apparent distress. They are non ill-appearing, nontoxic appearing. HEAD: normocephalic, atraumatic. EYES: Sclera clear/white. Vision is grossly intact. Conjunctiva normal bilaterally. Extraocular movements intact. EARS: External ears normal, auditory canals clear and without drainage, TMs without erythema or perforation. Hearing grossly intact. NOSE: External nose normal with no obvious nasal discharge, nasal turbinates erythematous, no rhinorrhea. THROAT: Mucous membranes moist, posterior pharynx erythematous without exudate. Uvula is midline. Postnasal drip present. NECK: Neck supple, non-tender without lymphadenopathy, masses or thyromegaly. CARDIOVASCULAR: Regular rate and rhythm without murmurs, gallops, or rubs. RESPIRATORY: Clear to auscultation. Breath sounds equal bilaterally. No wheezes, rales, or rhonchi. SKIN: warm, Dry, intact with no suspicious lesions or rash, good texture and turgor. NEURO: awake, alert, and oriented to person, place and time. There were no obvious focal neurologic abnormalities. EXTREMITIES: No joint tenderness, effusion, or edema noted. BACK: Nontender without deformity. Course Course Emergency Course: Portions of this record may have been created with voice recognition software Level of Care: Express Care Visit Vital Signs Vital signs: Vital Signs Temperature 97.7 F 03/09/25 09:20 Pulse Rate 81 03/09/25 09:20 Respiratory Rate 20 03/09/25 09:20 Blood Pressure 143/79 H 03/09/25 09:20 Pulse Oximetry 98 03/09/25 09:20 Oxygen Delivery Room Air 03/09/25 09:20 Temperature 97.7 F 03/09/25 09:20 Pulse Rate 81 03/09/25 09:20 Respiratory Rate 20 03/09/25 09:20 Blood Pressure 143/79 H 03/09/25 09:20 Pulse Oximetry 98 03/09/25 09:20 Oxygen Delivery Room Air 03/09/25 09:20 MDM - URI/Sore Throat MDM Narrative Medical decision making narrative: Patient has cardinal signs of his COPD exacerbation likely brought on by an upper respiratory infection. Go ahead and treat her prednisone and Augmentin. Patient has allergy to azithromycin. Discussed physical exam findings. Advised supportive measures and signs/symptoms to go to the ER. Pt is appropriate for outpt treatment and f/u. Differential Diagnosis Differential diagnosis: Likely upper respiratory infection, sinusitis, viral infection, bronchitis, pharyngitis and other (COPD exacerbation) Discharge Plan Discharge Clinical Impression: COPD exacerbation Patient Disposition: Home Condition: Stable Instructions: Antibiotic Form, COPD (Chronic Obstructive Pulmonary Disease) (ED) Additional Instructions: Take Augmentin as directed. Take the prednisone as directed. Take prednisone and Augmentin with food. Continue use your inhaler as directed. Follow-up with your PCP 3-5 days. Tylenol or ibuprofen as needed for pain or fevers, follow instructions for the bottle. If you developed chest pains, worsening breathing, difficulty breathing, worsening fevers, or any serious concerns please go to the ER immediately. Patient Language: Faroese Prescriptions: New prednisone 20 mg tablet 40 mg PO DAILY 5 Days Qty: 10 0RF amoxicillin-pot clavulanate 875-125 mg tablet 1 tablet PO Q12H 5 Days Qty: 10 0RF No Action hydrocodone-acetaminophen 5-325 mg tablet albuterol sulfate [Ventolin HFA] 90 mcg/actuation Hfa Aerosol Inhaler 2 puff INHALATION QID PRN (Reason: Dyspnea) Follow-up/Referrals: Vi,Nolvia Garcia APRN [Primary Care Provider, Unknown] Time of Disposition: 09:52
== END 2025-03-09 09:57 | disposition home or self-care (01) ==
PROVIDERS: PCP Nurse Practitioner
DX: J44.1 Chronic obstructive pulmonary disease with (acute) exacerbation (principal); F17.210 Nicotine dependence, cigarettes, uncomplicated; M79.7 Fibromyalgia; K21.9 Gastro-esophageal reflux disease without esophagitis; M06.9 Rheumatoid arthritis, unspecified
CPT/HCPCS: 99213; G0463